=== PATIENT | male | born 1965 | race Caucasian/White ===

== ENCOUNTER → 2016-07-18 | Outpatient (CLI) | payer BC, OTHER ==
[~2016-07-18] MED LIST: ENOX100I SQ; LAMO200T38 PO; TOPI200T14 PO; Warfarin PO
[2016-07-18 18:58] LABS: LYME DISEASE AB IGM NEG (NEG)
[2016-07-18 19:01] LABS: LYME DISEASE AB IGG NEG (NEG)
== END | disposition home or self-care (01) ==
LOC: C.LAB1850 11:26
PROVIDERS: ATTEND Family Medicine
DX: Z20.818 Contact with and (suspected) exposure to other bacterial communicable diseases (principal); W57.XXXA Bitten or stung by nonvenomous insect and other nonvenomous arthropods, initial encounter

== ENCOUNTER → 2016-11-26 | Outpatient (CLI) | payer BC, OTHER ==
[2016-11-26 12:11] LABS: INR 3.3 (0.9-1.1); PROTHROMBIN TIME (PATIENT) 37.6 SECONDS (9.0-12.0)
== END | disposition home or self-care (01) ==
LOC: C.LABPBG 08:58
PROVIDERS: ATTEND Family Medicine
DX: D68.51 Activated protein C resistance (principal)

== ENCOUNTER → 2017-02-25 | Outpatient (CLI) | payer BC, OTHER ==
[2017-02-25 11:56] LABS: BASO % 0.2 %; BASO ABS # 0.01 K/uL (0-0.2); COMPLETE YES; EOS % 1.3 %; HEMATOCRIT 46.2 % (42-52); IG% 0.2 %; LYMPH % 34.4 %; LYMPH ABS # 1.56 K/uL (1.2-3.4); MEAN CORPUSCULAR HEMOGLOBIN 31.4 pg (25-34); MEAN CORPUSCULAR HGB CONC 32.7 g/dl (32-36); MEAN PLATELET VOLUME 11.2 fL (7.4-10.4); MONO % 11.5 %; NEUT % 52.4 %; PLATELET COUNT 132 K/uL (130-400); RED BLOOD COUNT 4.81 M/uL (4.7-6.1); WHITE BLOOD COUNT 4.53 K/uL (4.8-10.8)
[2017-02-25 12:06] LABS: INR 3.2 (0.9-1.1); PROTHROMBIN TIME (PATIENT) 35.5 SECONDS (9.0-12.0)
[2017-02-25 13:03] LABS: ALKALINE PHOSPHATASE 72 U/L (45-117); ALT/SGPT 33 U/L (12-78); AST/SGOT 19 U/L (15-37); BLOOD UREA NITROGEN 21 mg/dl (7-18); BUN/CREATININE RATIO 14.2 (10-20); CALCIUM 8.8 mg/dl (8.5-10.1); CARBON DIOXIDE 25 mmol/L (21-32); CHLORIDE 109 mmol/L (98-107); GLUCOSE 102 mg/dl (70-99); HDL CHOLESTEROL 56 mg/dl; POTASSIUM 4.4 mmol/L (3.5-5.1); SODIUM 140 mmol/L (136-145)
[2017-02-25 13:11] LABS: CHOLESTEROL 202 mg/dl (0-200); CHOLESTEROL/HDL RATIO 3.6; LDL CHOLESTEROL CALCULATED 111 mg/dl; TRIGLYCERIDES 174 mg/dl (0-150); VERY LOW DENSITY LIPOPROT CALC 35 mg/dl
== END | disposition home or self-care (01) ==
LOC: C.LABPBG 09:10
PROVIDERS: ATTEND Family Medicine
DX: Z00.00 Encounter for general adult medical examination without abnormal findings (principal); D68.51 Activated protein C resistance

== ENCOUNTER 2017-04-17 00:42 | Emergency (ER) | payer OTHER ==
[~2017-04-17] VITALS: Ht 188 cm; Wt 99.7 kg
[~2017-04-17 00:42] MED LIST changes: +LAMO200T35 PO; -LAMO200T38 PO
[2017-04-17 01:10] VITALS: TEMP 36.3; Ht 188 cm; Wt 99.7 kg
[2017-04-17] MEDS ORDERED: SODIUM CHLORIDE 0.9% 1000ML 1,000 ML IV STA (01:28)
[2017-04-17] MEDS ORDERED: ONDANSETRON INJ 2 MG/ML 2 ML VIAL IV STA ×2 (01:28→02:49)
[2017-04-17] MEDS ORDERED: MoRPHine SULFATE 4 MG/ML 1 ML CARP\\VIAL IV STA (01:28)
[2017-04-17 01:44] LABS: EOS % 0.2 %; EOS ABS # 0.01 K/uL (0-0.5); HEMATOCRIT 44.3 % (42-52); IG# 0.02 K/uL (0.00-0.02); LYMPH % 10.7 %; MEAN CELL VOLUME 93.9 fL (80-100); MEAN CORPUSCULAR HEMOGLOBIN 31.8 pg (25-34); MEAN CORPUSCULAR HGB CONC 33.9 g/dl (32-36); MEAN PLATELET VOLUME 10.5 fL (7.4-10.4); MONO % 5.8 %; MONO ABS # 0.38 K/uL (0.11-0.59); NEUT ABS # 5.41 K/uL (1.4-6.5); PLATELET COUNT 109 K/uL (130-400); RED CELL DISTRIBUTION WIDTH CV 13.5 % (11.5-14.5); RED CELL DISTRIBUTION WIDTH SD 46.8 fL (36.4-46.3); WHITE BLOOD COUNT 6.52 K/uL (4.8-10.8)
[2017-04-17 02:06] LABS: ALT/SGPT 40 U/L (12-78); AST/SGOT 23 U/L (15-37); BLOOD UREA NITROGEN 24 mg/dl (7-18); CALCIUM 9.1 mg/dl (8.5-10.1); CARBON DIOXIDE 26 mmol/L (21-32); GLUCOSE 137 mg/dl (70-99); LIPASE 210 U/L (73-393); POTASSIUM 4.1 mmol/L (3.5-5.1); SODIUM 140 mmol/L (136-145)
[2017-04-17 02:08] LABS: ALKALINE PHOSPHATASE 75 U/L (45-117); TOTAL PROTEIN 7.6 gm/dl (6.4-8.2)
[2017-04-17] MEDS ORDERED: OPTIRAY 320 IV PRN (02:30)
[2017-04-17] MEDS ORDERED: WARF10TA PO (02:45)
[2017-04-17] MEDS ORDERED: HYDROmorphone INJ 1 MG/ML SYR IV STA ×2 (02:49→03:57)
[2017-04-17] MEDS ORDERED: OXYCODONE IR HOME PACK PO ONE (03:30)
[2017-04-17] MEDS ORDERED: ONDANSETRON HOME PACK 4MG OD TAB PO ONE (03:30)
[2017-04-17 05:04] LABS: INR 2.6 (0.9-1.1); PTT PATIENT 42.9 SECONDS (21.0-31.0)
[2017-04-17 05:42] VITALS: BP 158/97; PULSE 69; O2SAT 100
--- NOTE | 2017-04-17 05:46 | EMERGENCY ROOM VISIT NOTE ---
History First contact with patient: 01:15 Chief Complaint: ABDOMINAL PAIN Stated Complaint: LOWER RT QUADRENT ACUTE PAIN Nursing Triage Summary: RLQ abd pain since yesterday morning. Increased pain tonight. +N/V. Pt factor 5 History of Present Illness The patient is a 51 year old male who presents to the Emergency Room with complaints of right lower quadrant pain is steadily getting worse over the past day described as aching, ranging in severity 8 out of 10 with nausea and vomiting. Nothing makes it better or worse. It does radiate to his groin. No history of similar symptoms in the past. Patient denies chest pain, dyspnea, fever, chills, back pain, penile pain, testicular pain. Review of Systems See HPI for pertinent positives & negatives. A total of 10 systems reviewed and were otherwise negative. Past Medical/Surgical History Seizures, factor V, DVT, CVA Social History Smoking Status: Never Smoker Smokeless Tobacco Use: No Drug Use: none Marital Status: Housing Status: lives with family Current/Historical Medications Scheduled Lamotrigine (Lamictal), 200 MG PO TID Topiramate (Topamax), 200 MG PO TID Warfarin Sodium (Coumadin), 15 MG PO DAILY Physical Exam Vital Signs Date Time Temp Pulse Resp B/P (MAP) Pulse Ox O2 Delivery O2 Flow Rate FiO2 04/17/17 05:42 69 18 158/97 100 Room Air 04/17/17 03:42 82 16 138/99 98 Room Air 04/17/17 02:45 93 18 156/95 100 Room Air 04/17/17 02:00 68 04/17/17 01:49 Room Air 04/17/17 01:10 36.3 70 20 140/89 92 Room Air Physical Exam VITALS: Vitals are noted on the nurse's note and reviewed by myself. Vital signs stable. GENERAL: Pleasant male who appears in pain, in no acute distress, nondiaphoretic , well-developed well-nourished. SKIN: Capillary reflex less than 2 seconds. HEENT: Normocephalic. PERRLA. EOMI. Nares patent. Mucous membranes moist. Neck is supple without nuchal rigidity. HEART: Regular rate and rhythm without murmurs gallops or rubs. LUNGS: Clear to auscultation bilaterally without wheezes, rales or rhonchi. No retractions or accessory muscle use. ABDOMEN: Positive bowel sounds x 4. Normal tympanic percussion. Soft, tenderness to palpation right lower quadrant, no CVA tenderness, without masses or organomegaly. Ward sign negative. No guarding or rebound tenderness. MUSCULOSKELETAL: No gross musculoskeletal defects. No calf tenderness. NEURO: Patient was alert and oriented to person place and time. Normal sensation to light and sharp touch. No focal neurological deficits. Medical Decision & Procedures Laboratory Results 04/17/17 01:35 Red Blood Count 4.72, Mean Corpuscular Volume 93.9, Mean Corpuscular Hemoglobin 31.8, Mean Corpuscular Hemoglobin Concent 33.9, Mean Platelet Volume 10.5, Neutrophils (%) (Auto) 83.0, Lymphocytes (%) (Auto) 10.7, Monocytes (%) (Auto) 5.8, Eosinophils (%) (Auto) 0.2, Basophils (%) (Auto) 0.0, Neutrophils # (Auto) 5.41, Lymphocytes # (Auto) 0.70, Monocytes # (Auto) 0.38, Eosinophils # (Auto) 0.01, Basophils # (Auto) 0.00 04/17/17 01:35 Test 04/17/17 01:35 04/17/17 01:59 04/17/17 04:30 White Blood Count 6.52 K/uL (4.8-10.8) Red Blood Count 4.72 M/uL (4.7-6.1) Hemoglobin 15.0 g/dL (14.0-18.0) Hematocrit 44.3 % (42-52) Mean Corpuscular Volume 93.9 fL (80-100) Mean Corpuscular Hemoglobin 31.8 pg (25-34) Mean Corpuscular Hemoglobin Concent 33.9 g/dl (32-36) Platelet Count 109 K/uL (130-400) Mean Platelet Volume 10.5 fL (7.4-10.4) Neutrophils (%) (Auto) 83.0 % Lymphocytes (%) (Auto) 10.7 % Monocytes (%) (Auto) 5.8 % Eosinophils (%) (Auto) 0.2 % Basophils (%) (Auto) 0.0 % Neutrophils # (Auto) 5.41 K/uL (1.4-6.5) Lymphocytes # (Auto) 0.70 K/uL (1.2-3.4) Monocytes # (Auto) 0.38 K/uL (0.11-0.59) Eosinophils # (Auto) 0.01 K/uL (0-0.5) Basophils # (Auto) 0.00 K/uL (0-0.2) RDW Standard Deviation 46.8 fL (36.4-46.3) RDW Coefficient of Variation 13.5 % (11.5-14.5) Immature Granulocyte % (Auto) 0.3 % Immature Granulocyte # (Auto) 0.02 K/uL (0.00-0.02) Prothrombin Time 27.2 SECONDS (9.0-12.0) Prothromb Time International Ratio 2.6 (0.9-1.1) Activated Partial Thromboplast Time 42.9 SECONDS (21.0-31.0) Partial Thromboplastin Ratio 1.7 Anion Gap 4.0 mmol/L (3-11) Est Creatinine Clear Calc Drug Dose 80.5 ml/min Estimated GFR () 67.9 Estimated GFR (Non- 58.6 BUN/Creatinine Ratio 17.3 (10-20) Calcium Level 9.1 mg/dl (8.5-10.1) Total Bilirubin 0.3 mg/dl (0.2-1) Direct Bilirubin < 0.1 mg/dl (0-0.2) Aspartate Amino Transf (AST/SGOT) 23 U/L (15-37) Alanine Aminotransferase (ALT/SGPT) 40 U/L (12-78) Alkaline Phosphatase 75 U/L (45-117) Total Protein 7.6 gm/dl (6.4-8.2) Albumin 4.0 gm/dl (3.4-5.0) Lipase 210 U/L (73-393) Bedside Lactic Acid Venous 0.95 mmol/L (0.90-1.70) Urine Color YELLOW Urine Appearance TURBID (CLEAR) Urine pH 8.5 (4.5-7.5) Urine Specific [place] > 1.045 (1.000-1.030) Urine Protein NEG (NEG) Urine Glucose (UA) NEG (NEG) Urine Ketones TRACE (NEG) Urine Occult Blood 3+ (NEG) Urine Nitrite NEG (NEG) Urine Bilirubin NEG (NEG) Urine Urobilinogen NEG (NEG) Urine Leukocyte Esterase NEG (NEG) Urine WBC (Auto) 1-5 /hpf (0-5) Urine RBC (Auto) 5-10 /hpf (0-4) Urine Hyaline Casts (Auto) 1-5 /lpf (0-5) Urine Epithelial Cells (Auto) 20-30 /lpf (0-5) Urine Bacteria (Auto) NEG (NEG) Urine Yeast (Auto) . (NONE PRSENT) Medications Administered Medications (Trade) Dose Ordered Sig/Thomas Route Start Time Stop Time Status Last Admin Dose Admin Morphine Sulfate (MoRPHine SULFATE INJ) 4 mg NOW STAT IV 04/17/17 01:28 04/17/17 01:30 DC 04/17/17 01:43 4 MG Ondansetron HCl (Zofran Inj) 4 mg NOW STAT IV 04/17/17 01:28 04/17/17 01:30 DC 04/17/17 01:42 4 MG Sodium Chloride 1,000 ml @ 999 mls/hr Q1H1M STAT IV 04/17/17 01:28 04/17/17 02:28 DC 04/17/17 01:47 999 MLS/HR Hydromorphone HCl (Dilaudid Inj) 1 mg NOW STAT IV 04/17/17 02:49 04/17/17 02:50 DC 04/17/17 03:11 1 MG Ondansetron HCl (Zofran Inj) 4 mg NOW STAT IV 04/17/17 02:49 04/17/17 02:50 DC 04/17/17 03:11 4 MG ED Course Prior records/ancillary studies reviewed. Triage Nursing notes reviewed. Additional history obtained from the family. The patient's history was concerning for right lower quadrant pain. Differential diagnosis: Etiologies such as renal colic, appendicitis, diverticulitis, mesenteric ischemia, aortic pathology, infections, inflammatory bowel disease, PUD, biliary pathology, UTI, as well as others were entertained. Physical examination findings: As above. ER treatment provided: Morphine, Dilaudid, Zofran On reassessment the patient felt better. Diagnostic interpretation by me: The labs revealed hyperglycemia without DKA. Urinalysis revealed hematuria. There was no sign of UTI. Imaging studies: CT of the abdomen and pelvis as above. Scan is concerning for right ureteral with hydronephrosis stone per radiology It appears that the patient has isolated renal colic from a right sided stone. The patient's pain was under control. He was advised to strain his urine and take medications as directed. Patient no signs of UTI. He is well-appearing. He was advised follow-up urology in a few days or here in the ER sooner for severe pain, fevers, vomiting , worsening signs or symptoms or as needed.By the evaluation outlined above emergent etiologies such as appendicitis, diverticulitis, mesenteric ischemia, aortic pathology, infections, inflammatory bowel disease, PUD, biliary pathology , UTI, as well as others were deemed relatively unlikely. The pt informed about the findings as listed above. All questions were answered and pleased with the treatment. Return instructions were outlined and the patient was discharged in stable condition. Outpatient prescription management: Oxy IR 5mg 1-2 po Q4 hrs prn zofran Referral: The pt was referred to [facility] for follow up care regarding their stone. or The patient was referred back to their primary care physician for follow-up in 2 to 3 days for a recheck of the current condition. case reviewed by my Attending Medical Decision As above [place] Drug Monitoring Program Search Results: patient reviewed within database, no issues identified Medication Reconcilliation Current Medication List: was personally reviewed by me Blood Pressure Screening Patient's blood pressure: Normal blood pressure Impression Primary Impression: Renal colic on right side Additional Impression: Nephrolithiasis Departure Information Dispostion Home / Self-Care Condition GOOD Referrals Divya Gilbert DO (PCP) Patient Instructions My [facility] Additional Instructions DO NOT drive, drink alcohol, operate machinery, or perform dangerous activities today. You were given medications in the ER that can affect your ability to safely function or operate a vehicle. Oxycodone Immediate Release (OxyIR) 5mg: Take 1-2 pills every four hours for pain. Avoid alcohol, operating machinery or dangerous equipment, working on ladders or roofs, DRIVING, or situations where being under the influence may be dangerous. It is recommended to use an jzij-meo-vucusst stool softener such as Colace, 100mg twice daily while taking this medication to avoid constipation. Zofran 4 mg: Take one every six hours as needed for nausea. Avoid alcohol, operating machinery or dangerous equipment, working on ladders or roofs, DRIVING , or situations where being under the influence may be dangerous. Acetaminophen(Tylenol) may be used for fever or pain. Use 1000mg every six hours as needed. Avoid using more than 3000mg in a 24 hour period. This medication can be taken if you need to drive, work, or perform activities which may be dangerous when taking narcotic pain medication. Strain your urine and collect all the stones or debris for the urologists. Rest and avoid strenuous activity until your stone passes and symptoms resolve. Drink plenty of fluids. Continue current medications. Return to the ER for worsening abdominal or back pain, vomiting, fevers, passing out, or as needed. Follow up with urology in 2-3 days, call for an appointment. Problem Qualifiers
[2017-04-17] MEDS ORDERED: OXYC1TAB3 PO (05:50)
--- NOTE | 2017-04-17 07:38 | EMERGENCY ROOM VISIT NOTE ---
ED Visit Note First contact with patient: 01:15 I have personally evaluated and examined this patient. I agree with assessment and plan of Rachael Rothman PA-C.
--- NOTE | 2017-04-17 07:52 | DIAGNOSTIC IMAGING REPORT ---
CT SCAN OF THE ABDOMEN AND PELVIS WITH IV CONTRAST CLINICAL HISTORY: Right lower quadrant abdominal pain. COMPARISON STUDY: Abdominal ultrasound dated 10/21/2009. TECHNIQUE: Following the IV administration of 118 cc of Optiray 320, CT scan of the abdomen and pelvis is performed from the lung bases to the proximal femora. Images are reviewed in the axial, sagittal, and coronal planes. IV contrast was administered without complication. A dose lowering technique was utilized adhering to the principles of ALARA. CT DOSE: 576.34 mGy.cm FINDINGS: Lung bases: The heart is normal in size and without pericardial effusion. The lung bases are clear noting dependent atelectasis. There is a tiny hiatal hernia. Liver: The contrast-enhanced liver is normal in size, contour, and attenuation. There is no intrahepatic biliary ductal dilatation. The hepatic veins and portal veins are patent. A 1.4 cm cyst is noted in the left lobe. Gallbladder: Unremarkable. Spleen: Normal in size and attenuation. Pancreas: Moderately atrophic and grossly unremarkable. Adrenal glands: Unremarkable. Kidneys: The contrast enhanced kidneys are normal in size. There is a 4 mm obstructing calculus at the right vesicoureteral junction seen on image #410. This causes mild right hydroureteronephrosis. There is associated right-sided perinephric stranding and trace fluid. No additional renal calculi are clearly identified on this unenhanced examination. The right kidney enhances heterogeneously. Left renal cysts measure up to 2.3 cm. Additional subcentimeter cortical hypodensities in the left kidney also likely represent cysts but are too small for definitive characterization. Abdominal vasculature: The abdominal aorta is normal in course and caliber. Bowel: There is mild colonic fecal retention. No bowel obstruction is seen. The appendix is well-visualized and normal. Peritoneum: There is no intraperitoneal free air or abdominal ascites. There is a small fat-containing umbilical hernia. Lymphadenopathy: None. Pelvic viscera: The bladder, prostate, and seminal vesicles are normal as visualized. Skeletal structures: No lytic or blastic lesions are seen. IMPRESSION: 1. There is a 4 mm obstructing calculus at the right vesicoureteral junction. This causes mild right hydroureteronephrosis. 2. There is heterogeneous enhancement of the right kidney, likely related to obstruction/hydronephrosis. Correlate clinically and urinalysis for evidence of superimposed infection. 3. Additional findings as above. Electronically signed by: Melvin Gan M.D. 04/17/2017 7:50 AM Dictated Date/Time: 04/17/2017 7:44 AM
== END 2017-04-17 06:06 | disposition home or self-care (01) ==
LOC: C.EDB 00:53
DX: N23 Unspecified renal colic (principal); N20.0 Calculus of kidney; R56.9 Unspecified convulsions; I63.9 Cerebral infarction, unspecified

== ENCOUNTER 2017-05-23 03:30 | Emergency (ER) | payer OTHER ==
[~2017-05-23] VITALS: Ht 188 cm; Wt 98.0 kg
[~2017-05-23 03:30] MED LIST changes: -ENOX100I SQ; +OXYC1TAB3 PO; +WARF10TA PO; -Warfarin PO
[2017-05-23 03:36] VITALS: TEMP 37; Ht 188 cm; Wt 98.0 kg
[2017-05-23] MEDS ORDERED: HYDROmorphone INJ 2 MG/ML SYR/VIAL IV STA (04:00)
--- NOTE | 2017-05-23 04:01 | EMERGENCY ROOM VISIT NOTE ---
History Report prepared by Jackson: Dontrell Mendoza Under the Supervision of: Dr. Alicja Najera D.O. First contact with patient: 03:43 Chief Complaint: LEG PAIN,LEG INJURY Stated Complaint: POSSIBLE BLOOD CLOTT IN R LEG, FOOT APPEARS BLUE History of Present Illness The patient is a 51 year old male who presents to the Emergency Room with complaints of worsening right thigh pain that began 6 days ago. Patient states that the pain radiates to his groin. Patient states that he has been taking 2 Percocet every 2 hours for the pain. Patient is present with his . states that that patient was seen 3 days due to leg swelling and discoloration. Patient states he was told he had a ruptured quadricep. Patient states that he received an MRI through [facility] showing that he had a hematoma. Patient denies injuring the area. Pertinent past medical history includes a left leg DVT and torn tendon in his right ankle. Patient denies scrotum pain and abdominal pain. Patient denies using antibiotics recently. He adds that he is supposed to see orthopedics in 2 days. states that the patient has been on Coumadin for the last 20 years. She states his baseline range level is 3.5-4. Source of History: patient Onset: 6 days ago Position: leg (right) Timing: worsening Associated Symptoms: No abdominal pain Note: Patient has leg swelling and discoloration. Patient denies scrotum pain. Review of Systems See HPI for pertinent positives & negatives. A total of 10 systems reviewed and were otherwise negative. Past Medical & Surgical Medical Problems: (1) DVT (deep venous thrombosis) Family History No pertinent family history. Social History Smoking Status: Never Smoker Drug Use: none Marital Status: Housing Status: lives with family Current/Historical Medications Scheduled Lamotrigine (Lamictal), 200 MG PO TID Topiramate (Topamax), 200 MG PO TID Warfarin Sodium (Coumadin), 15 MG PO DAILY Scheduled PRN Oxycodone Immediate Rel Tab (Roxicodone Ir), 1-2 TAB PO Q4H PRN for Severe Pain Oxycodone/Acetaminophen 5MG/325MG (Percocet 5MG/325MG), 2 TABLETS PO Q4H PRN for Pain Allergies Coded Allergies: Penicillins (Verified Allergy, Severe, 04/17/17) HIVES Sulfa Antibiotics (Verified Allergy, Unknown, ., 04/17/17) Physical Exam Vital Signs Date Time Temp Pulse Resp B/P (MAP) Pulse Ox O2 Delivery O2 Flow Rate FiO2 05/23/17 07:19 71 18 129/77 100 Room Air 05/23/17 05:58 67 18 121/82 97 Room Air 05/23/17 03:36 37.0 91 18 116/78 100 Room Air Physical Exam HEENT: Head - normocephalic and atraumatic Pupils are equal, round, and reactive to light. Extraocular eye muscles are intact, and sclera are anicteric. Nose - moist nasal mucosa without discharge. Mouth - moist buccal mucosa. Oropharynx is nonerythematous and there is no tonsillar exudate or edema noted. Neck: Supple; no JVD, nuchal rigidity, cervical lymphadenopathy. Heart: Regular rate and rhythm. There is a normal S1 and S2 with no murmurs, clicks, or gallops appreciated. Lungs: Clear to auscultation bilaterally with no wheezes, rales, or rhonchi. Abdomen: Soft, completely nontender, nondistended, with good bowel sounds. There are no palpable pulsatile masses or hepatosplenomegaly. There is no guarding, rigidity, or rebound noted. Extremities: No evidence of cyanosis or clubbing. Large hematoma over lateral aspect of right thigh that tracts down into the popliteal fossa. There are easily palpable peripheral pulses. Skin: warm and dry with good turgor and no rashes. Medical Decision & Procedures ER Provider Diagnostic Interpretation: Radiology results as stated below per my review and the radiologist's interpretation: RIGHT LOWER EXTREMITY ARTERIAL DOPPLER STUDY CLINICAL HISTORY: eval for clot in lower right leg. Right leg pain. COMPARISON STUDY: None. FINDINGS: Normal triphasic waveforms and velocities throughout the right lower extremity arterial system. No evidence for arterial occlusion. The right ankle brachial indices measure 1.2. IMPRESSION: No significant stenosis or occlusion within the right lower extremity arterial system. Electronically signed by: Jas Boyer M.D. 05/23/2017 6:43 AM RIGHT LOWER EXTREMITY VENOUS DOPPLER HISTORY: Right leg pain. eval for dvt in right calf COMPARISON STUDY: None. FINDINGS: There is normal compressibility, flow, and augmentation within the right lower extremity deep venous system. IMPRESSION: No DVT within the right lower extremity Electronically signed by: Jas Boyer M.D. 05/23/2017 6:41 AM Laboratory Results 05/23/17 04:10 Test 05/23/17 04:10 Red Blood Count 3.96 M/uL (4.7-6.1) Mean Corpuscular Volume 93.7 fL (80-100) Mean Corpuscular Hemoglobin 31.6 pg (25-34) Mean Corpuscular Hemoglobin Concent 33.7 g/dl (32-36) RDW Standard Deviation 46.8 fL (36.4-46.3) RDW Coefficient of Variation 13.8 % (11.5-14.5) Mean Platelet Volume 9.6 fL (7.4-10.4) Prothrombin Time 52.3 SECONDS (9.0-12.0) Prothromb Time International Ratio 5.1 (0.9-1.1) Laboratory results per my review. Medications Administered Medications (Trade) Dose Ordered Sig/Thomas Route Start Time Stop Time Status Last Admin Dose Admin Hydromorphone HCl (Dilaudid Inj) 2 mg NOW STAT IV 05/23/17 04:00 05/23/17 04:03 DC 05/23/17 04:16 2 MG Hydromorphone HCl (Dilaudid Inj) 1 mg NOW STAT IV 05/23/17 06:00 05/23/17 06:01 DC 05/23/17 06:07 1 MG Procedure Dilaudid Inj 2mg IV and Dilaudid Inj 1mg IV. ED Course 0350: Past medical records reviewed. The patient was evaluated in room B9. A complete history and physical exam was performed. IV lock was established and labs were drawn as above. 0400: Dilaudid Inj 2mg IV. The patient went for duplex of the right lower extremity to rule out DVT or arterial occlusion. 0600: Upon returning from radiology, the patient had recurrent pain and was given Dilaudid Inj 1mg IV 0715: Upon reevaluation, the patient is resting comfortably. I discussed findings and results with him. I discussed the case with Dr. Baird who explained that the decision to be admitted for pain management or to go home and follow-up with his appointment on Thursday was up to the patient. He verbalized agreement of the treatment plan. He was discharged home. Medical Decision The patient is a 51 year old male who presents to the ED with thigh pain. Differential diagnosis includes compartment syndrome, DVT, and obstructive arterial blood flow secondary to hematoma. Lab results show INR = 5.1 and hemoglobin = 12.5. This is a 51-year-old with right thigh pain. The patient has a large hematoma to the right thigh from a ruptured quadriceps tendon. The patient has had increased pain in the right thigh despite taking Percocet and noticed that the right foot was cold. The family was concerned that the right lower extremity was not getting good blood flow. Ultrasounds were negative. The patient's INR is elevated at 5.1. He will skip his Coumadin dose today. Eventually, the patient will need to be transitioned to Lovenox and heparin in preparation for surgery. The patient has an appointment scheduled on Thursday. He will keep that appointment and use the additional Percocet for pain management. Medication Reconcilliation Current Medication List: was personally reviewed by me Blood Pressure Screening Patient's blood pressure: Normal blood pressure Blood pressure disposition: Did not require urgent referral Consults Time Called: [phone] Consulting Physician: Dr. Baird - [facility] Returned Call: [phone] Discussed the patient's case. Dr. Baird states that the patient can stay for pain management or leave and follow up at his appointment on Thursday. Impression Primary Impression: Hematoma of right thigh Scribe Attestation The scribe's documentation has been prepared under my direction and personally reviewed by me in its entirety. I confirm that the note above accurately reflects all work, treatment, procedures, and medical decision making performed by me. Departure Information Dispostion Home / Self-Care Prescriptions Oxycodone/Acetaminophen 5MG/325MG (PERCOCET 5MG/325MG) Tab 2 TABLETS PO Q4H Y for Pain, #20 TAB PAIN Prov: Alicja Najera D.O. 05/23/17 Referrals Divya Gilbert DO (PCP) Forms HOME CARE DOCUMENTATION FORM, IMPORTANT VISIT INFORMATION Patient Instructions My [facility] Additional Instructions Follow up with Ortho on Thursday Use percocet - 2 tabs. every 4 hours for pain. Return to the ED if you can't feel a pulse in the foot. No coumadin today Problem Qualifiers Primary Impression: Hematoma of right thigh Encounter type: initial encounter Qualified Codes: S70.11XA - Contusion of right thigh, initial encounter
[2017-05-23 04:23] LABS: HEMATOCRIT 37.1 % (42-52); HEMOGLOBIN 12.5 g/dL (14.0-18.0); MEAN CELL VOLUME 93.7 fL (80-100); MEAN CORPUSCULAR HEMOGLOBIN 31.6 pg (25-34); MEAN CORPUSCULAR HGB CONC 33.7 g/dl (32-36); MEAN PLATELET VOLUME 9.6 fL (7.4-10.4); PLATELET COUNT 141 K/uL (130-400); RED CELL DISTRIBUTION WIDTH CV 13.8 % (11.5-14.5); RED CELL DISTRIBUTION WIDTH SD 46.8 fL (36.4-46.3); WHITE BLOOD COUNT 5.48 K/uL (4.8-10.8)
[2017-05-23 04:39] LABS: INR 5.1 (0.9-1.1)
[2017-05-23] MEDS ORDERED: HYDROmorphone INJ 1 MG/ML SYR IV STA (06:00)
--- NOTE | 2017-05-23 06:43 | DIAGNOSTIC IMAGING REPORT ---
RIGHT LOWER EXTREMITY VENOUS DOPPLER HISTORY: Right leg pain. eval for dvt in right calf COMPARISON STUDY: None. FINDINGS: There is normal compressibility, flow, and augmentation within the right lower extremity deep venous system. IMPRESSION: No DVT within the right lower extremity Electronically signed by: Jas Boyer M.D. 05/23/2017 6:41 AM Dictated Date/Time: 05/23/2017 6:41 AM
--- NOTE | 2017-05-23 06:44 | DIAGNOSTIC IMAGING REPORT ---
RIGHT LOWER EXTREMITY ARTERIAL DOPPLER STUDY CLINICAL HISTORY: eval for clot in lower right leg. Right leg pain. COMPARISON STUDY: None. FINDINGS: Normal triphasic waveforms and velocities throughout the right lower extremity arterial system. No evidence for arterial occlusion. The right ankle brachial indices measure 1.2. IMPRESSION: No significant stenosis or occlusion within the right lower extremity arterial system. Electronically signed by: Jas Boyer M.D. 05/23/2017 6:43 AM Dictated Date/Time: 05/23/2017 6:42 AM
[2017-05-23 07:19] VITALS: BP 129/77; PULSE 71; O2SAT 100
[2017-05-23] MEDS ORDERED: OXYC-57 PO (07:22)
== END 2017-05-23 07:49 | disposition home or self-care (01) ==
LOC: C.EDB 03:32
DX: S70.11XA Contusion of right thigh, initial encounter (principal); X58.XXXA Exposure to other specified factors, initial encounter; Z86.718 Personal history of other venous thrombosis and embolism; Z79.01 Long term (current) use of anticoagulants; Z88.0 Allergy status to penicillin; Z88.1 Allergy status to other antibiotic agents

== ENCOUNTER 2017-05-25 15:57 | Inpatient (IN) | payer OTHER ==
[~2017-05-25] VITALS: Ht 188 cm; Wt 100.5 kg
[~2017-05-25 15:57] MED LIST changes: -ACET-24 PO; -LVNIS100 SQ
[2017-05-25 18:00] VITALS: BP 115/76; PULSE 98; TEMP 36.7; O2SAT 93
[2017-05-25 18:10] VITALS: BP 115/76; PULSE 98; TEMP 36.7; Ht 188 cm; Wt 100.5 kg
[2017-05-25] MEDS ORDERED: OXYCODONE HCL IR 5 MG TAB (IMMEDIATE RELEASE) PO PRN (20:00)
[2017-05-25] MEDS ORDERED: MoRPHine SULFATE 2 MG/ML CARP IV PRN (20:00)
--- NOTE | 2017-05-25 20:20 | Medical Consult ---
Consultation Date of Consultation: May 25, 2017. Attending Physician: Dontrell De La Rosa D.O. Reason for Consultation: Coumadin management History of Present Illness 51 y/o M who was sent to [facility] by ortho for R thigh hematoma. Pt has been having R lateral thigh pain for over a week. He was seen in the ED on 05/23/17 and was found to have a R LE US neg for DVT. He was noted to have a R lateral thigh hematoma and an INR of 5.1. He was told to hold his coumadin on 05/24/17 and to take a lower dose of 12mg today. His usual coumadin dose is 15mg daily. He was seen by ortho today. An US shows a large R thigh hematoma that ortho is planning to evacuate on 05/27 after pt's INR is lower. Pt denies any trauma or recent falls. Per pt, his INR goal is 3.5-4 "because I clot easy". He states that he has had clots in the usual therapeutic range of 2-3. He has a LLE DVT at present that is chronic. Pt has pain and swelling related to the R lateral thigh hematoma, but otherwise feels at his usual. Pt denies fever, SOB, chest pain, abd pain, n/v/c/d. 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 He has not had a seizure since that time. Past Medical/Surgical History Medical Problems: (1) Hematoma of right thigh Status: Acute (2) Nephrolithiasis Status: Acute (3) Renal colic on right side Status: Acute L LE DVT CVA Seizures, none x20 years Factor V Social History Smoking Status: Never Smoker Alcohol Use: none Drug Use: none Marital Status: Housing Status: lives with family Allergies Coded Allergies: Penicillins (Verified Allergy, Severe, 04/17/17) HIVES Sulfa Antibiotics (Verified Allergy, Unknown, ., 04/17/17) Current Inpatient Medications Current Inpatient Medications Medications (Trade) Dose Ordered Sig/Thomas Route Start Time Stop Time Status Last Admin Dose Admin Lamotrigine (Lamictal Tab) 200 mg TID PO 05/25/17 21:00 06/24/17 20:59 UNV Oxycodone HCl (Roxicodone Immediate Rel Tab) 5 mg Q4H PRN PO 05/25/17 20:00 06/08/17 19:59 UNV Oxycodone/ Acetaminophen (Percocet 5-325mg Tab) 1 tab Q4H PRN PO 05/25/17 20:00 06/08/17 19:59 UNV Topiramate (Topamax Tab) 200 mg TID PO 05/25/17 21:00 06/24/17 20:59 UNV Morphine Sulfate (MoRPHine SULFATE INJ) 1 mg Q6H PRN IV 05/25/17 20:00 06/08/17 19:59 UNV Review of Systems Pertinent positives and negatives reviewed in HPI--all others negative Physical Exam Date Time Temp Pulse Resp B/P (MAP) Pulse Ox O2 Delivery O2 Flow Rate FiO2 05/25/17 18:00 36.7 98 18 115/76 (89) 93 Room Air General Appearance: WD/WN, no apparent distress Head: normocephalic, atraumatic Eyes: EOMI, sclerae normal Respiratory/Chest: normal breath sounds, no respiratory distress Cardiovascular: regular rate, rhythm, normal peripheral pulses Abdomen/GI: non tender, soft Extremities/Musculoskelatal: + swelling (R thigh), + pertinent finding (R thigh is TTP) Neurologic/Psych: alert, normal mood/affect, oriented x 3 Skin: warm/dry, + pertinent finding (Marked bruising along R lateral thigh, chronic skin changes along b/l lower extremities) Laboratory Results Last 24 Hours Test 05/25/17 19:54 Assessment & Plan 51 y/o M who was admitted on 05/25 as a direct admission from the office by Dr. De La Rosa for R lateral thigh hematoma. R lateral thigh hematoma: planning for OR on 05/27 As per ortho Factor V, L LE DVT: pt's INR goal is 3.5-4 for hx of recurrent DVTs at usual therapeutic range Pt generally takes 15mg daily, but this was held on 05/24 and decreased to 12mg today after INR noted to be 5.1 INR pending Will need to start a heparin bridge, however will not start this until INR is returned and noted to be closer to pt's usual range of 3.5-4 given hematoma Seizures: single seizure noted s/p CVA 20 yrs ago Monitor on home meds
[2017-05-25 20:21] LABS: HEMATOCRIT 33.9 % (42-52); HEMOGLOBIN 11.3 g/dL (14.0-18.0); MEAN CORPUSCULAR HEMOGLOBIN 31.7 pg (25-34); MEAN CORPUSCULAR HGB CONC 33.3 g/dl (32-36); MEAN PLATELET VOLUME 9.2 fL (7.4-10.4); PLATELET COUNT 142 K/uL (130-400); RED CELL DISTRIBUTION WIDTH CV 14.1 % (11.5-14.5); RED CELL DISTRIBUTION WIDTH SD 48.7 fL (36.4-46.3)
[2017-05-25 20:29] LABS: INR 2.1 (0.9-1.1)
[2017-05-25 20:39] LABS: CALCIUM 8.6 mg/dl (8.5-10.1); CREATININE 1.09 mg/dl (0.60-1.40); POTASSIUM 4.2 mmol/L (3.5-5.1)
[2017-05-25] MEDS: TOPIRAMATE 100 MG TAB PO SCH (21:11)
[2017-05-25] MEDS: OXYCODONE/ACETAMINOPHEN 5-325 TAB PO PRN (21:14)
[2017-05-25] MEDS ORDERED: LACTATED RINGER'S 1000ML 1,000 ML IV SCH (21:40)
[2017-05-25 21:55] LABS: BASO % 0.2 %; BASO ABS # 0.01 K/uL (0-0.2); EOS % 1.6 %; EOS ABS # 0.09 K/uL (0-0.5); IG# 0.01 K/uL (0.00-0.02); LYMPH % 19.8 %; LYMPH ABS # 1.09 K/uL (1.2-3.4); MONO % 10.2 %; MONO ABS # 0.56 K/uL (0.11-0.59); NEUT ABS # 3.75 K/uL (1.4-6.5)
[2017-05-25] MEDS: HEPARIN 25,000 UNIT/500ML D5W 500 ML IV PRN (22:40)
[2017-05-25 22:55] VITALS: BP 128/74; PULSE 84; TEMP 36.9; O2SAT 99
[2017-05-26 05:11] LABS: HEMATOCRIT 33.5 % (42-52); HEMOGLOBIN 11.1 g/dL (14.0-18.0); MEAN CELL VOLUME 95.7 fL (80-100); MEAN CORPUSCULAR HEMOGLOBIN 31.7 pg (25-34); MEAN CORPUSCULAR HGB CONC 33.1 g/dl (32-36); MEAN PLATELET VOLUME 9.8 fL (7.4-10.4); PLATELET COUNT 139 K/uL (130-400); RED CELL DISTRIBUTION WIDTH CV 13.9 % (11.5-14.5); RED CELL DISTRIBUTION WIDTH SD 48.1 fL (36.4-46.3)
[2017-05-26 06:02] LABS: INR 2.3 (0.9-1.1)
[2017-05-26 06:09] LABS: PTT PATIENT 124.2 SECONDS (21.0-31.0)
[2017-05-26] MEDS: OXYCODONE/ACETAMINOPHEN 5-325 TAB PO PRN (06:31)
[2017-05-26] MEDS: HEPARIN 25,000 UNIT/500ML D5W 500 ML IV PRN ×5 (07:25→23:16)
[2017-05-26 08:44] VITALS: BP 111/67; PULSE 79; TEMP 36.9; O2SAT 98
[2017-05-26] MEDS: TOPIRAMATE 100 MG TAB PO SCH ×3 (09:47→21:07)
--- NOTE | 2017-05-26 12:36 | Hospitalist Progress Note ---
Hospitalist Progress Note Date of Service May 26, 2017. (Leilani Kelley ., PRIYANKAC) Subjective Pt evaluation today including: conversation w/ patient, conversation w/ family , physical exam, chart review, lab review, review of inpatient medication list Pain: 9/10 sharp right thigh pain PO Intake: Tolerating PO diet Voiding: no voiding problems The patient complains of a 9/10 sharp pain in his right thigh that is worse with movement and weight bearing. The patient also notes some intermittent tingling in his right foot. He denies any known trauma or injury to the area. He states his only recent medicine change was the addition of Percocet on 05/20 due to the thigh pain. The patient denies fevers, chills, sweats, chest pain, palpitations, claudication, cough, wheezing, shortness of breath, nausea, vomiting, abdominal pain, dysuria, hematuria, urinary retention, paralysis, weakness. Additional Comments: See HPI for pertinent positives and negatives. All other systems reviewed and negative. (Leilani Kelley ., PRIYANKAC) Objective Vital Signs Date Time Temp Pulse Resp B/P (MAP) Pulse Ox O2 Delivery O2 Flow Rate FiO2 05/26/17 08:44 36.9 79 18 111/67 (82) 98 Room Air 05/26/17 07:45 Room Air 05/25/17 23:48 Room Air 05/25/17 22:55 36.9 84 16 128/74 (92) 99 Room Air 05/25/17 19:45 Room Air 05/25/17 18:10 36.7 98 18 115/76 Room Air 05/25/17 18:00 36.7 98 18 115/76 (89) 93 Room Air (Leilani Kelley PA-C) Physical Exam Notes: General appearance: Well-developed, well-nourished, no apparent distress Head: Normocephalic, atraumatic Eyes: Normal inspection, PERRL, EOMI ENT: Normal ENT inspection, hearing grossly normal, pharynx normal Neck: Supple, no JVD, trachea midline Respiratory/Chest: Lungs clear to auscultation, normal breath sounds, no respiratory distress Cardiovascular: Regular rate & rhythm, no gallop, no murmur Abdomen/GI: Normal bowel sounds, non-tender, soft Extremities/Musculoskeletal: +Right thigh TTP. Ecchymoses. Chronic venous stasis changes. No calf tenderness, no pedal edema Neurological/Psych: +Flat affect. Alert, oriented x 3 Skin: +Ecchymoses along lateral aspect right thigh, as well as medial aspect. Some ecchymosis wraps around posterior thigh. Scattered older, smaller ecchymoses over knee and proximal right lower leg. Normal color, warm/dry, no rash (Leilani Kelley ., PA-C) Laboratory Results Last 24 Hours Test 05/25/17 20:09 05/26/17 04:42 White Blood Count 5.30 K/uL 4.70 K/uL Red Blood Count 3.57 M/uL 3.50 M/uL Hemoglobin 11.3 g/dL 11.1 g/dL Hematocrit 33.9 % 33.5 % Mean Corpuscular Volume 95.0 fL 95.7 fL Mean Corpuscular Hemoglobin 31.7 pg 31.7 pg Mean Corpuscular Hemoglobin Concent 33.3 g/dl 33.1 g/dl Platelet Count 142 K/uL 139 K/uL Mean Platelet Volume 9.2 fL 9.8 fL Neutrophils (%) (Auto) 68.0 % Lymphocytes (%) (Auto) 19.8 % Monocytes (%) (Auto) 10.2 % Eosinophils (%) (Auto) 1.6 % Basophils (%) (Auto) 0.2 % Neutrophils # (Auto) 3.75 K/uL Lymphocytes # (Auto) 1.09 K/uL Monocytes # (Auto) 0.56 K/uL Eosinophils # (Auto) 0.09 K/uL Basophils # (Auto) 0.01 K/uL RDW Standard Deviation 48.7 fL 48.1 fL RDW Coefficient of Variation 14.1 % 13.9 % Immature Granulocyte % (Auto) 0.2 % Immature Granulocyte # (Auto) 0.01 K/uL Nucleated RBC Absolute Count (auto) 0.00 K/uL Nucleated Red Blood Cells % 0.0 % Prothrombin Time 22.0 SECONDS 23.4 SECONDS Prothromb Time International Ratio 2.1 2.3 Sodium Level 139 mmol/L Potassium Level 4.2 mmol/L Chloride Level 108 mmol/L Carbon Dioxide Level 26 mmol/L Anion Gap 5.0 mmol/L Blood Urea Nitrogen 23 mg/dl Creatinine 1.09 mg/dl Est Creatinine Clear Calc Drug Dose 105.7 ml/min Estimated GFR () 91.9 Estimated GFR (Non- 79.3 BUN/Creatinine Ratio 20.7 Random Glucose 100 mg/dl Calcium Level 8.6 mg/dl Activated Partial Thromboplast Time 124.2 SECONDS Partial Thromboplastin Ratio 4.8 (Leilani Kelley ., MARILYN) Assessment and Plan 51 y/o male with a history of Factor V Leiden, h/o CVA, and seizure disorder who presents with a right thigh hematoma and pain. Right thigh hematoma -Likely in right vastus lateralis per ultrasound -Plan for evacuation w/ortho 05/27 if INR allows -Warm compresses -Continue heparin drip -Increase morphine to 4 mg IV q4h prn pain -D/C Percocet, can continue oxycodone IR 5 mg PO q4h prn pain Factor V Leiden, chronic LLE DVT--per pt, INR goal 3.5-4 due to h/o clotting in typical 2-3 range. Takes 15 mg warfarin daily at home -INR had been 3.4 on 05/20, then started on Percocet and INR up to 5.1 on 05/23 -Continue to hold warfarin. INR 2.3 on 05/26. Heparin drip as above -D/C Percocet as acetaminophen can enhance warfarin effects Seizure disorder--developed following CVA 20 years ago (diagnosed with Factor V then) -Continue Lamictal 200 mg PO TID and Topamax 200 mg PO TID DVT prophylaxis -Enoxaparin 40 mg SC q24h -NIKKO Grimaldo Code Status -Level I, FULL RESUSCITATION STATUS (Leilani Kelley ., MARILYN) I interviewed and examined the patient. Discussed with Leilani Kelley PAC and agree with findings and plan as documented in the note. Any exceptions or clarifications are listed here: None This patient is concerned about his anticoagulation reversal for his upcoming thigh hematoma evacuation he still is in the 2 range with his INR will give him a very low dose of vitamin K this evening while he is on intravenous heparin in order to try to assure that his INR is 1.4 or lower tomorrow 05/27 otherwise he has no complaints or problems Vital signs show temp 36 9 pulse 84 respiratory 16 BP 126/74 O2 sat 98 on room air His leg is edematous and tender especially tubal external edge of his right quadricep muscle he also has some ecchymosis just distal to his right knee which is likely tracking from gravity Patient is covered for his thrombophilia with IV heparin and INR will be checked in the morning if below 1.4 and surgery deems is acceptable he will go to surgery for hematoma evacuation Documented By: Dontrell Allen (Dontrell Allen M.D.)
[2017-05-26] MEDS: MoRPHine SULFATE 4 MG/ML 1 ML CARP\\VIAL IV PRN ×3 (13:59→22:48)
[2017-05-26 15:18] VITALS: BP 112/71; PULSE 79; TEMP 36.9; O2SAT 97
--- NOTE | 2017-05-26 15:25 | History and Physical ---
History & Physical Date May 26, 2017. Chief Complaint Patient presents a 51-year-old white male with acute hematoma his right anterolateral thigh that occurred in the last week has expanded causing significant pain patient's on Coumadin taking 12 mg doses with an INR of 5.1 patient is been hospitalized for conversion from Coumadin to heparin to prepare for I&D of the acute hematoma of his right anterolateral thigh History of Present Illness The patient is a 51 year old male with complaints of hematoma right anterior lateral thigh patient on Coumadin as an acute bleed with no history of trauma Past Medical/Surgical History Medical Problems: (1) DVT (deep venous thrombosis) Additional History Hepatic Disease: No Endocrine Disorder: No Kidney Disease: No Hypertension: No Heart Disease: No Bleeding Tendencies: Yes Infectious Diseases: No Other: Patient with factor V deficiency history of DVTs Coumadin spin his anticoagulation methodology easier to be heparinized and ridged for surgical intervention Allergies Coded Allergies: Penicillins (Verified Allergy, Severe, 04/17/17) HIVES Sulfa Antibiotics (Verified Allergy, Unknown, ., 04/17/17) Home Medications Scheduled Lamotrigine (Lamictal), 200 MG PO TID Topiramate (Topamax), 200 MG PO TID Warfarin Sodium (Coumadin), 15 MG PO DAILY Scheduled PRN Oxycodone/Acetaminophen 5MG/325MG (Percocet 5MG/325MG), 2 TABLETS PO Q4H PRN for Pain Physical Examination Skin: warm/dry, no rash Eyes: normal inspection, EOMI, sclerae normal ENT: normal ENT inspection, pharynx normal Head: normocephalic, atraumatic Neck: supple, no adenopathy, trachea midline Respiratory/Chest: lungs clear, normal breath sounds, no respiratory distress Cardiovascular: regular rate, rhythm, no edema, no murmur Abdomen / GI: normal bowel sounds, non tender Back: normal inspection Extremities: + pertinent finding (hematoma right anterolateral thigh) Diagnosis Patient hematoma right anterolateral thigh acute bleed nontraumatic is on Coumadin for factor V deficiency Plan of Treatment Plan is to evacuate the hematoma and make a plan for a bridging with heparin and do this sometime tomorrow mid morning
[2017-05-26] MEDS ORDERED: PHYTONADIONE PED 1 MG/0.5ML AMP/SYRG IV ONE (15:45)
--- NOTE | 2017-05-26 16:34 | Oncology Consultation ---
Oncology/Heme Consultation Date of Consultation: May 26, 2017. Attending Physician: Dontrell De La Rosa D.O. Reason for Consultation: Thigh hematoma while on coumadin with a supratherapeutic INR Possible coagulopathy History of Present Illness Mr Mcfarland is an unfortunate 51 year old man who sustained a stroke in 1997 that led to a grand mal seizure and subsequent complex partial seizures, along with memory loss and other chronic neurologic issues. I have no records from this event, but based on prior consultations, it was felt this may have been thrombotic in origin and he was found to be heterozygous for factor V Leiden. In the early 1999s, he experienced a left leg DVT that has left him with chronic venous stasis changes in that leg. His tells me that a housekeeper/laundry assistant , at that time, continued to check serial ultrasounds weekly and, because the clot was not receding, kept increasing his warfarin dose and recommended maintaining an INR of 3.5-4. He has done so for quite some time, despite apparently being told by several hematologists that this is unwise. Interestingly, during a hospital stay in 2014, he was briefly off of warfarin and on IV heparin. He had a normal INR and Dr. Wesley ordered levels of protein C, protein S, and ATIII. His free protein S was 56%, which is low. He is hospitalized after developing severe right leg pain. An ultrasound revealed a large intramuscular hematoma. He does not recall any specific trauma to the leg. He has not had any other obvious bleeding episodes. Past Medical/Surgical History Medical Problems: (1) Hematoma of right thigh Status: Acute (2) Nephrolithiasis Status: Acute (3) Renal colic on right side Status: Acute Social History Smoking Status: Never Smoker Alcohol Use: none Drug Use: none Marital Status: Housing Status: lives with family Allergies Coded Allergies: Penicillins (Verified Allergy, Severe, 04/17/17) HIVES Sulfa Antibiotics (Verified Allergy, Unknown, ., 04/17/17) Home Medications Scheduled Lamotrigine (Lamictal), 200 MG PO TID Topiramate (Topamax), 200 MG PO TID Warfarin Sodium (Coumadin), 15 MG PO DAILY Scheduled PRN Oxycodone/Acetaminophen 5MG/325MG (Percocet 5MG/325MG), 2 TABLETS PO Q4H PRN for Pain Current Inpatient Medications Current Inpatient Medications Medications (Trade) Dose Ordered Sig/Thomas Route Start Time Stop Time Status Last Admin Dose Admin Lamotrigine (Lamictal Tab) 200 mg TID PO 05/25/17 21:00 06/24/17 20:59 05/26/17 14:08 200 MG Topiramate (Topamax Tab) 200 mg TID PO 05/25/17 21:00 06/24/17 20:59 05/26/17 14:07 200 MG Lactated Ringer's 1,000 ml @ 15 mls/hr Q24H IV 05/25/17 21:40 05/26/17 18:00 05/25/17 22:36 15 MLS/HR Heparin Sodium/ Dextrose 500 ml @ 27 mls/hr [id number] PRN IV 05/25/17 21:45 06/24/17 21:44 05/26/17 15:39 23 MLS/HR Morphine Sulfate (MoRPHine SULFATE INJ) 4 mg Q4H PRN IV 05/26/17 11:30 06/09/17 11:29 05/26/17 13:59 4 MG Oxycodone HCl (Roxicodone Immediate Rel Tab) 5 mg Q4H PRN PO 05/26/17 12:30 06/09/17 12:29 Phytonadione (Aqua-Mephyton Ped Inj) 1 mg ONE ONCE IV 05/26/17 15:45 05/26/17 15:46 UNV Review of Systems Constitutional: No fever, No fatigue Eyes: No worsening of vision ENT: No unusual epistaxis Respiratory: No shortness of breath, No hemoptysis Cardiovascular: No chest pain Abdomen: No pain, No nausea, No GI bleeding Musculoskeletal: + muscle pain (right thigh pain) Genitourinary - Male: No hematuria, No dysuria Hematologic / Lymphatic: + abnormal bleeding/bruising, No night sweats Physical Exam Date Time Temp Pulse Resp B/P (MAP) Pulse Ox O2 Delivery O2 Flow Rate FiO2 05/26/17 15:18 36.9 79 18 112/71 (85) 97 Room Air 05/26/17 08:44 36.9 79 18 111/67 (82) 98 Room Air 05/26/17 07:45 Room Air 05/25/17 23:48 Room Air 05/25/17 22:55 36.9 84 16 128/74 (92) 99 Room Air 05/25/17 19:45 Room Air 05/25/17 18:10 36.7 98 18 115/76 Room Air 05/25/17 18:00 36.7 98 18 115/76 (89) 93 Room Air General Appearance: WD/WN, no apparent distress Eyes: EOMI Respiratory/Chest: lungs clear Cardiovascular: regular rate, rhythm Abdomen/GI: non tender, soft Extremities/Musculoskelatal: + pertinent finding (his right thigh is tender and ecchymotic. He also has chronic venous stasis changes in his left leg) Neurologic/Psych: + pertinent finding (He has impaired recall of past events, though he answered questions appropriately (if slowly)) Lymphatic: no adenopathy Laboratory Results Last 24 Hours Test 05/25/17 20:09 05/26/17 04:42 05/26/17 13:26 White Blood Count 5.30 K/uL 4.70 K/uL Red Blood Count 3.57 M/uL 3.50 M/uL Hemoglobin 11.3 g/dL 11.1 g/dL Hematocrit 33.9 % 33.5 % Mean Corpuscular Volume 95.0 fL 95.7 fL Mean Corpuscular Hemoglobin 31.7 pg 31.7 pg Mean Corpuscular Hemoglobin Concent 33.3 g/dl 33.1 g/dl Platelet Count 142 K/uL 139 K/uL Mean Platelet Volume 9.2 fL 9.8 fL Neutrophils (%) (Auto) 68.0 % Lymphocytes (%) (Auto) 19.8 % Monocytes (%) (Auto) 10.2 % Eosinophils (%) (Auto) 1.6 % Basophils (%) (Auto) 0.2 % Neutrophils # (Auto) 3.75 K/uL Lymphocytes # (Auto) 1.09 K/uL Monocytes # (Auto) 0.56 K/uL Eosinophils # (Auto) 0.09 K/uL Basophils # (Auto) 0.01 K/uL RDW Standard Deviation 48.7 fL 48.1 fL RDW Coefficient of Variation 14.1 % 13.9 % Immature Granulocyte % (Auto) 0.2 % Immature Granulocyte # (Auto) 0.01 K/uL Nucleated RBC Absolute Count (auto) 0.00 K/uL Nucleated Red Blood Cells % 0.0 % Prothrombin Time 22.0 SECONDS 23.4 SECONDS Prothromb Time International Ratio 2.1 2.3 Sodium Level 139 mmol/L Potassium Level 4.2 mmol/L Chloride Level 108 mmol/L Carbon Dioxide Level 26 mmol/L Anion Gap 5.0 mmol/L Blood Urea Nitrogen 23 mg/dl Creatinine 1.09 mg/dl Est Creatinine Clear Calc Drug Dose 105.7 ml/min Estimated GFR () 91.9 Estimated GFR (Non- 79.3 BUN/Creatinine Ratio 20.7 Random Glucose 100 mg/dl Calcium Level 8.6 mg/dl Activated Partial Thromboplast Time 124.2 SECONDS 77.0 SECONDS Partial Thromboplastin Ratio 4.8 3.0 Assessment & Plan Mr. Mcfarland is a 51 year old man with a history of a stroke in his 30s and a DVT about 15 years ago. He has been maintained on life-long anticoagulation, but a housekeeper/laundry assistant in the past recommended a high INR goal (3.5-4), according to the patient's based on possible extension of the DVT while on coumadin. Regardless, he has generally done well despite the supratheraputic INR. However , he presents now with a spontaneous thigh hematoma that is almost certainly due to his high INR. With regard to his acute issue, he is planning for surgical evacuation today. Once it is safe, he should bridge back to coumadin, with a more appropriate goal INR (2-3). I can think of no reason to maintain an INR that high and he has no evidence that he's ever failed coumadin. He is in some ways fortunate he has not experienced a more life-threatening bleeding complication in this time. With regard to his thrombotic history, he is heterozygous for factor V Leiden, which is a minimal thrombotic risk and certainly not an indication for life- long anticoagulation. The low protein S level Dr. Wesley identified in 2014 is more interesting, as protein S deficiency is a major thrombophilia. While we generally expect to see much lower activity levels in asymptomatic patients to diagnose them with deficiency, in patients who have experienced thromboses in the past, a cutoff of <60% is consistent with the diagnosis of protein S deficiency. If we have an opportunity to do so, it would be interesting to attempt to confirm this finding by checking another level while he is off of coumadin, preferably for a week or so. If he is protein S deficient, he should absolutely remain on life-long anticoagulation.
[2017-05-26] MEDS ORDERED: PHYTONADIONE IV SCH (16:45)
[2017-05-26] MEDS ORDERED: SODIUM CHLORIDE 0.9% IV SCH (16:45)
[2017-05-26 18:35] VITALS: BP 96/55; PULSE 84; TEMP 36.8; O2SAT 97
[2017-05-26 18:50] VITALS: BP 106/68; PULSE 76; TEMP 36.8; O2SAT 98
[2017-05-26 21:32] LABS: PTT PATIENT 54.2 SECONDS (21.0-31.0)
[2017-05-26 22:45] VITALS: BP 116/73; PULSE 81; TEMP 37.1; O2SAT 99
[2017-05-27] VITALS (7 sets, daily range): BP systolic 119–147; BP diastolic 70–91; PULSE 73–95; TEMP 36.2–37; O2SAT 98–100
[2017-05-27] MEDS: MoRPHine SULFATE 4 MG/ML 1 ML CARP\\VIAL IV PRN ×3 (04:53→14:19)
[2017-05-27] MEDS ORDERED: STOP ORDER~HEPARIN DRIP ONE (05:00)
[2017-05-27 05:26] LABS: HEMATOCRIT 33.1 % (42-52); HEMOGLOBIN 11.1 g/dL (14.0-18.0); MEAN CELL VOLUME 94.3 fL (80-100); MEAN CORPUSCULAR HEMOGLOBIN 31.6 pg (25-34); MEAN CORPUSCULAR HGB CONC 33.5 g/dl (32-36); MEAN PLATELET VOLUME 9.6 fL (7.4-10.4); PLATELET COUNT 152 K/uL (130-400); RED CELL DISTRIBUTION WIDTH CV 14.1 % (11.5-14.5); RED CELL DISTRIBUTION WIDTH SD 48.4 fL (36.4-46.3)
[2017-05-27 05:38] LABS: INR 1.3 (0.9-1.1)
[2017-05-27 05:45] LABS: PTT PATIENT 51.8 SECONDS (21.0-31.0)
[2017-05-27] MEDS: TOPIRAMATE 100 MG TAB PO SCH ×3 (09:23→22:08)
[2017-05-27 09:40] LABS: PTT PATIENT 33.6 SECONDS (21.0-31.0)
[2017-05-27] MEDS ORDERED: EpHEDrine SULFATE INJ 50 MG/ML AMP IV PRN (09:45)
[2017-05-27] MEDS ORDERED: ONDANSETRON INJ 2 MG/ML 2 ML VIAL IV PRN (09:45)
[2017-05-27] MEDS ORDERED: ATROPINE SULFATE 0.1 MG/ML 5ML SYR IV PRN (09:45)
--- NOTE | 2017-05-27 10:17 | History & Physical Bridge Note ---
H&P Re-Evaluation Bridge Note: I have examined the patient, reviewed the History & Physical and in the interval since the performance of the History & Physical I have noted the following changes of clinical significance: No changes noted
[2017-05-27] MEDS ORDERED: FENTANYL CITRATE INJ 50 MCG/1 ML 2 ML VIAL ONE (11:47)
[2017-05-27] MEDS ORDERED: PROPOFOL IV EMULSION 10 MG/ML 20 ML VIAL IV ONE (11:47)
[2017-05-27] MEDS ORDERED: ONDANSETRON INJ 2 MG/ML 2 ML VIAL ONE (12:34)
[2017-05-27] MEDS ORDERED: LIDOCAINE HCL 2% 2 ML VIAL (20MG/ML) ONE (12:34)
[2017-05-27] MEDS ORDERED: DEXAMETHASONE SOD INJ 4 MG/ML VIAL ONE (12:34)
[2017-05-27] MEDS ORDERED: CEFAZOLIN SOD 1 GM VIAL ONE (12:38)
--- NOTE | 2017-05-27 12:55 | [facility] Post Operative Brief Note ---
Immediate Operative Summary Operative Date May 27, 2017. Pre-Operative Diagnosis hematoma right anterolateral thigh Post-Operative Diagnosis hematoma right anterolateral thigh Procedure(s) Performed Evacuation hematoma Surgeon Rj Denier Control Operator Surgeon(s) Daren Ceballos PA-C Estimated Blood Loss 5cc Findings Consistent with Post-Op Diagnosis Specimens none Anesthesia Type General Complication(s) none Disposition Disposition: Recovery Room / PACU
--- NOTE | 2017-05-27 12:58 | [facility] Operative Report ---
Operative Report Operative Date May 27, 2017. Pre-Operative Diagnosis hematoma right anterolateral thigh Post-Operative Diagnosis hematoma right anterolateral thigh Procedure(s) Performed Evacuation hematoma right thigh Surgeon Rj Railroad Cook Surgeon(s) Daren Ceballos PA-C Estimated Blood Loss 5cc Findings Spontaneous hematoma patient's on Coumadin for factor V deficiency hematoma right anterolateral thigh measuring 8 x 10 cm was evacuated Specimens none Drains hemovac Anesthesia Type General Complication(s) none Disposition Recovery Room / PACU Indications Painful spontaneous hematoma right anterior lateral thigh measuring 8 x 10 cm Description of Procedure After initiation of general anesthesia the right lower 70 socially prepping draping suture fracture surges type A 3 cm is made over the region lateral aspect of the distal thigh proximal to the VMO insertion subsequently a subperiosteal dissection carried down to the region of muscle small 3 cm muscle split with its fibers the hematoma was evacuated was irrigated with 3 L of sterile saline solution. With bacitracin after thorough irrigation debridement of the hematoma FloSeal was placed in the hematoma the deep hematoma that was subsequently had a Hemovac drain placed proximal to the incision incision closed with 3-0 Vicryl and 3-0 nylon a sterile compressive dressing was placed on 5 patient taken recovery in stable condition operative report dictated by Rj PIZARRO was necessary for prepping draping retraction and closure defect is subcutaneous and skin was necessary for the case I attest to the content of the Intraoperative Record and any orders documented therein. Any exceptions are noted below.
[2017-05-27] MEDS ORDERED: FLOSEAL HEMOSTATIC MATRIX 10ML TOP ONE (12:59)
[2017-05-27] MEDS: FENTANYL CITRATE INJ 50 MCG/1 ML 2 ML VIAL IV PRN ×4 (13:14→13:29)
[2017-05-27] MEDS: HYDROmorphone INJ 1 MG/ML SYR IV PRN ×4 (13:30→13:45)
[2017-05-27] MEDS ORDERED: HYDROmorphone INJ 2 MG/ML SYR/VIAL ONE (13:30)
--- NOTE | 2017-05-27 15:21 | Anesthesiology Progress Note ---
Anesthesia Post Op Note Date & Time May 27, 2017 at 15:21 Vital Signs Pain Intensity: 10.0 Vital Signs Past 12 Hours Date Time Temp Pulse Resp B/P (MAP) Pulse Ox O2 Delivery O2 Flow Rate FiO2 05/27/17 15:15 36.6 89 18 129/84 (99) 100 Room Air 05/27/17 14:15 Nasal Cannula 2.0 05/27/17 14:15 36.8 86 18 147/91 (109) 100 Nasal Cannula 2.0 05/27/17 13:55 36.8 69 16 140/82 100 Nasal Cannula 2 05/27/17 13:45 73 16 143/99 100 Nasal Cannula 2 05/27/17 13:35 71 16 156/79 100 Nasal Cannula 2 05/27/17 13:25 87 16 129/79 100 Oxymask 10 05/27/17 13:15 77 16 117/65 100 Oxymask 10 05/27/17 13:07 37.1 88 16 141/90 100 Oxymask 10 05/27/17 08:30 Room Air 05/27/17 08:06 98 Room Air 05/27/17 08:00 36.2 81 18 122/76 (91) 98 Room Air Notes Mental Status: alert / awake / arousable, participated in evaluation Pt Amnestic to Procedure: Yes Nausea / Vomiting: adequately controlled Pain: adequately controlled Airway Patency, RR, SpO2: stable & adequate BP & HR: stable & adequate Hydration State: stable & adequate Anesthetic Complications: no major complications apparent
[2017-05-27] MEDS: WARFARIN SOD 7.5 MG TAB PO SCH (15:38)
--- NOTE | 2017-05-27 16:51 | Hematology/Oncology Prog Note ---
Hematology/Onc Progress Note Date of Service May 27, 2017. Diagnoses Thigh hematoma Supratherapeutic INR History of CVA and DVT Medications Medications Administered Medications (Trade) Dose Ordered Sig/Thomas Route Start Time Stop Time Status Last Admin Dose Admin Lamotrigine (Lamictal Tab) 200 mg TID PO 05/25/17 21:00 06/24/17 20:59 05/27/17 14:19 200 MG Oxycodone/ Acetaminophen (Percocet 5-325mg Tab) 1 tab Q4H PRN PO 05/25/17 20:00 05/26/17 12:28 DC 05/26/17 06:31 1 TAB Topiramate (Topamax Tab) 200 mg TID PO 05/25/17 21:00 06/24/17 20:59 05/27/17 14:19 200 MG Morphine Sulfate (MoRPHine SULFATE INJ) 1 mg Q6H PRN IV 05/25/17 20:00 05/26/17 11:19 DC 05/26/17 07:57 1 MG Lactated Ringer's 1,000 ml @ 15 mls/hr Q24H IV 05/25/17 21:40 05/26/17 18:00 DC 05/25/17 22:36 15 MLS/HR Heparin Sodium/ Dextrose 500 ml @ 23 mls/hr [id number] PRN IV 05/25/17 21:45 05/27/17 05:00 DC 05/26/17 23:16 23 MLS/HR Morphine Sulfate (MoRPHine SULFATE INJ) 4 mg Q4H PRN IV 05/26/17 11:30 06/09/17 11:29 05/27/17 14:19 4 MG Phytonadione 1 mg/ Sodium Chloride 50.1 ml @ 101 mls/hr TODAY@1645 IV 05/26/17 16:45 05/26/17 17:15 DC 05/26/17 18:24 101 MLS/HR Miscellaneous (Stop Order) 1 ea ONE ONCE N/A 05/27/17 05:00 05/27/17 05:01 DC 05/27/17 04:53 1 EA Fentanyl Citrate (Fentanyl Inj) 25 mcg Q5M PRN IV 05/27/17 09:45 05/27/17 14:45 DC 05/27/17 13:29 25 MCG Hydromorphone HCl (Dilaudid Inj) 0.25 mg Q5M PRN IV 05/27/17 09:45 05/27/17 14:45 DC 05/27/17 13:45 0.25 MG Miscellaneous (Floseal Hemostatic Matrix 10ml) 10 ml ONE ONCE TOP 05/27/17 12:59 05/27/17 13:00 DC 05/27/17 12:50 10 ML Warfarin Sodium (Coumadin Tab) 7.5 mg DAILY@16 PO 05/27/17 16:00 06/26/17 15:59 05/27/17 15:38 7.5 MG Subjective Mr. Mcfarland is doing well and is scheduled for surgery shortly. He has no new or worsening pain. Review of Systems: Eyes: No worsening of vision ENT: No unusual epistaxis Respiratory: No cough, No hemoptysis Cardiovascular: No chest pain Abdomen: No pain, No GI bleeding Musculoskeletal: + muscle pain (thigh pain from his hematoma) Male : No hematuria Heme: No abnormal bleeding/bruising Skin: No rash Vital Signs Vital Signs Past 12 Hours Date Time Temp Pulse Resp B/P (MAP) Pulse Ox O2 Delivery O2 Flow Rate FiO2 05/27/17 16:17 36.8 80 18 119/76 (90) 99 Room Air 05/27/17 15:15 36.6 89 18 129/84 (99) 100 Room Air 05/27/17 14:15 Nasal Cannula 2.0 05/27/17 14:15 36.8 86 18 147/91 (109) 100 Nasal Cannula 2.0 05/27/17 13:55 36.8 69 16 140/82 100 Nasal Cannula 2 05/27/17 13:45 73 16 143/99 100 Nasal Cannula 2 05/27/17 13:35 71 16 156/79 100 Nasal Cannula 2 05/27/17 13:25 87 16 129/79 100 Oxymask 10 05/27/17 13:15 77 16 117/65 100 Oxymask 10 05/27/17 13:07 37.1 88 16 141/90 100 Oxymask 10 05/27/17 08:30 Room Air 05/27/17 08:06 98 Room Air 05/27/17 08:00 36.2 81 18 122/76 (91) 98 Room Air Physical Exam Constitutional: General Apperance: heathly-appearing Level of Distress: NAD Psychiatric: Mental Status: active & alert Lungs: Auscuitation: breath sounds normal Cardiovascular: Heart Auscultation: RRR Abdomen: Inspection & Palpation: soft, no tenderness, guarding & rebound Musculoskeletal: pertinent finding (tenderness to palpation of right thigh, with large ecchymosis) Laboratory Last 24 Hours Test 05/26/17 20:34 05/27/17 04:47 05/27/17 09:14 Activated Partial Thromboplast Time 54.2 SECONDS 51.8 SECONDS 33.6 SECONDS Partial Thromboplastin Ratio 2.1 2.0 1.3 White Blood Count 5.00 K/uL Red Blood Count 3.51 M/uL Hemoglobin 11.1 g/dL Hematocrit 33.1 % Mean Corpuscular Volume 94.3 fL Mean Corpuscular Hemoglobin 31.6 pg Mean Corpuscular Hemoglobin Concent 33.5 g/dl RDW Standard Deviation 48.4 fL RDW Coefficient of Variation 14.1 % Platelet Count 152 K/uL Mean Platelet Volume 9.6 fL Prothrombin Time 13.1 SECONDS Prothromb Time International Ratio 1.3 Assessment & Plan Mr. Mcfarland is headed for surgery this morning and his heparin drip is off. He should resume full-dose anticoagulation as soon as deemed safe from a hemostatic perspective. He should then be bridged back to coumadin with a target INR of 2-3. I had a long conversation with the patient and his . While there may be some marginal reduction in stroke risk with a higher INR, it is outweighed by the risk of life-threatening hemorrhage. He is fortunate that this event was not worse or that he did not have a more serious bleed, like an intracranial hemorrhage or GI bleed. If he is going to be off of coumadin for a few more days, it would be of academic interest to check a protein S level. If it is low, it might explain his thrombotic risk and would absolutely be an indication for lifelong anticoagulation. However, I see no need to prolong his hospital stay to assess this, as I think it is sam to keep him on long-term AC regardless.
--- NOTE | 2017-05-27 18:27 | Progress Note ---
Subjective Date of Service: May 27, 2017. Subjective pt underwent hematoma drainage 05/27, Dr Hicks from hematology did see patient and recommends life long AC Problem List Medical Problems: (1) Hematoma of right thigh Status: Acute (2) Nephrolithiasis Status: Acute (3) Renal colic on right side Status: Acute Objective Vital Signs Date Time Temp Pulse Resp B/P (MAP) Pulse Ox O2 Delivery O2 Flow Rate FiO2 05/27/17 17:37 36.6 73 16 119/75 (90) 99 Room Air 05/27/17 16:17 36.8 80 18 119/76 (90) 99 Room Air 05/27/17 15:15 36.6 89 18 129/84 (99) 100 Room Air 05/27/17 14:15 Nasal Cannula 2.0 05/27/17 14:15 36.8 86 18 147/91 (109) 100 Nasal Cannula 2.0 05/27/17 13:55 36.8 69 16 140/82 100 Nasal Cannula 2 05/27/17 13:45 73 16 143/99 100 Nasal Cannula 2 05/27/17 13:35 71 16 156/79 100 Nasal Cannula 2 05/27/17 13:25 87 16 129/79 100 Oxymask 10 05/27/17 13:15 77 16 117/65 100 Oxymask 10 05/27/17 13:07 37.1 88 16 141/90 100 Oxymask 10 05/27/17 08:30 Room Air 05/27/17 08:06 98 Room Air 05/27/17 08:00 36.2 81 18 122/76 (91) 98 Room Air 05/26/17 23:54 Room Air 05/26/17 22:45 37.1 81 16 116/73 (87) 99 Room Air 05/26/17 18:50 36.8 76 16 106/68 (81) 98 Room Air 05/26/17 18:35 36.8 84 18 96/55 (69) 97 Room Air Laboratory Results Last 24 Hours Test 05/26/17 20:34 05/27/17 04:47 05/27/17 09:14 Activated Partial Thromboplast Time 54.2 SECONDS 51.8 SECONDS 33.6 SECONDS Partial Thromboplastin Ratio 2.1 2.0 1.3 White Blood Count 5.00 K/uL Red Blood Count 3.51 M/uL Hemoglobin 11.1 g/dL Hematocrit 33.1 % Mean Corpuscular Volume 94.3 fL Mean Corpuscular Hemoglobin 31.6 pg Mean Corpuscular Hemoglobin Concent 33.5 g/dl RDW Standard Deviation 48.4 fL RDW Coefficient of Variation 14.1 % Platelet Count 152 K/uL Mean Platelet Volume 9.6 fL Prothrombin Time 13.1 SECONDS Prothromb Time International Ratio 1.3 Assessment and Plan Patient will have heparin based anticoagulation resumed in am if hemostasis is achieved, can consider lovenox 1mg/kg SC bid as a bridge until coumadin returns to 2-3 range, if surgery prefers heparin gtt for shorter half time to resolution can convert to lovenox at later time as may take days to have INR rise Documented By: Dontrell Allen
[2017-05-27] MEDS: CLINDAMYCIN IV 600 MG in DEXTROSE 5% 50ML 50 ML IV SCH (22:09)
[2017-05-27] MEDS: OXYCODONE HCL IR 5 MG TAB (IMMEDIATE RELEASE) PO PRN (22:09)
[2017-05-28 04:16] VITALS: BP 113/67; PULSE 86; TEMP 37; O2SAT 98
[2017-05-28] MEDS: CLINDAMYCIN IV 600 MG in DEXTROSE 5% 50ML 50 ML IV SCH (04:24)
[2017-05-28] MEDS: OXYCODONE HCL IR 5 MG TAB (IMMEDIATE RELEASE) PO PRN ×4 (04:25→20:54)
--- NOTE | 2017-05-28 06:28 | DIAGNOSTIC IMAGING REPORT ---
ULTRASOUND VENOUS DOPP LEFT LOWER EXT UNILAT CLINICAL HISTORY: factor 5 deficiency, postop hematoma removal LEG SWELLING COMPARISON STUDY: May 23, 2017 FINDINGS: No thrombus is visualized in the common femoral or superficial femoral veins. There is slow flow and linear stranding within the popliteal vein. Findings are felt to be chronic. No thrombus was visualized within the posterior tibial or anterior tibial veins. The peroneal vein was incompletely compressible. This could be chronic. IMPRESSION: 1. Chronic fibrin stranding within the left popliteal vein 2. Age-indeterminate thrombus within the left peroneal vein. Electronically signed by: Norbert Duke M.D. 05/28/2017 6:26 AM Dictated Date/Time: 05/28/2017 6:24 AM
[2017-05-28 07:25] VITALS: BP 119/71; PULSE 75; TEMP 36.8; O2SAT 97
[2017-05-28 07:27] LABS: HEMATOCRIT 33.6 % (42-52); HEMOGLOBIN 11.2 g/dL (14.0-18.0); MEAN CELL VOLUME 94.1 fL (80-100); MEAN CORPUSCULAR HEMOGLOBIN 31.4 pg (25-34); MEAN CORPUSCULAR HGB CONC 33.3 g/dl (32-36); MEAN PLATELET VOLUME 9.7 fL (7.4-10.4); PLATELET COUNT 166 K/uL (130-400); RED CELL DISTRIBUTION WIDTH CV 13.7 % (11.5-14.5); RED CELL DISTRIBUTION WIDTH SD 47.1 fL (36.4-46.3); WHITE BLOOD COUNT 5.41 K/uL (4.8-10.8)
[2017-05-28 07:34] LABS: INR 1.1 (0.9-1.1); PTT PATIENT 31.5 SECONDS (21.0-31.0)
[2017-05-28] MEDS: MoRPHine SULFATE 4 MG/ML 1 ML CARP\\VIAL IV PRN ×4 (08:27→23:30)
--- NOTE | 2017-05-28 09:09 | Orthopedic Progress Note ---
Orthopedic Progress Note Date of Service May 28, 2017. Subjective Post OP Day: 1 Reports: feeling well, Denies: chest pain, SOB, nausea / vomiting, light headedness, calf pain Additional Notes: PATIENT AND ARE CONCERNED WITH THE DELAY WITH STARTING THE HEPARIN. THEY THOUGHT IT WAS TO BE STARTED IMMEDIATELY POST OP. Objective calves soft nontender, N/V intact, capillary refill less than 2 sec., dressing C /D/I, A&O x3, toes mobile, hemovac drainage (ZERO DRAINAGE) Date Time Temp Pulse Resp B/P (MAP) Pulse Ox O2 Delivery O2 Flow Rate FiO2 05/28/17 07:25 36.8 75 16 119/71 (87) 97 Room Air 05/28/17 04:16 37.0 86 14 113/67 (82) 98 Room Air 05/27/17 23:49 Room Air 05/27/17 23:00 37.0 95 16 120/70 (87) 99 Room Air 05/27/17 17:37 36.6 73 16 119/75 (90) 99 Room Air 05/27/17 16:17 36.8 80 18 119/76 (90) 99 Room Air 05/27/17 15:30 Room Air 05/27/17 15:15 36.6 89 18 129/84 (99) 100 Room Air 05/27/17 14:15 Nasal Cannula 2.0 05/27/17 14:15 36.8 86 18 147/91 (109) 100 Nasal Cannula 2.0 05/27/17 13:55 36.8 69 16 140/82 100 Nasal Cannula 2 05/27/17 13:45 73 16 143/99 100 Nasal Cannula 2 05/27/17 13:35 71 16 156/79 100 Nasal Cannula 2 05/27/17 13:25 87 16 129/79 100 Oxymask 10 05/27/17 13:15 77 16 117/65 100 Oxymask 10 05/27/17 13:07 37.1 88 16 141/90 100 Oxymask 10 Laboratory Results 24 Hours: Test 05/28/17 06:50 Hematocrit 33.6 % Hemoglobin 11.2 g/dL Prothromb Time International Ratio 1.1 Prothrombin Time 11.3 SECONDS Assessment & Plan Assessment: POD#1 SP EVACUATION RIGHT THIGH HEMATOMA Plan: PT/OT DVT PROPH- LOVENOX IS TO START THIS AM, AFTER 24 HOURS AND HEMOSTASIS HAS BEEN ACHIEVED. I DID EXPLAIN THIS TO THE PATIENT AND HIS THIS AM. CURRENT INR 1.1, COUMADIN HAS BEEN RESTARTED. HEMOVAC WITH ZERO DRAINAGE. WILL KEEP IN PLACE TODAY TO ENSURE NO FURTHER BLEEDING ONCE LOVENOX STARTED. PAIN MANAGEMENT MEDICAL MANAGEMENT- [facility]. DC PLANNING- LIKELY DC HOME TOMORROW AFTER DRESSING AND DRAINED REMOVED IF NO EVIDENCE OF FURTHER BLEEDING.
[2017-05-28] MEDS ORDERED: ENOXAPARIN 1 MG/KG SQ SCH (09:15)
[2017-05-28] MEDS ORDERED: LOVENOX TEACHING KIT ONE (09:15)
[2017-05-28] MEDS: TOPIRAMATE 100 MG TAB PO SCH ×3 (10:30→20:52)
[2017-05-28] MEDS: ENOXAPARIN 100 MG/1ML SYR SQ SCH ×2 (10:31→20:53)
--- NOTE | 2017-05-28 10:31 | Anesthesiology Progress Note ---
Anesthesia Post Op Note Date & Time May 28, 2017 at 10:31 Vital Signs Vital Signs Past 12 Hours Date Time Temp Pulse Resp B/P (MAP) Pulse Ox O2 Delivery O2 Flow Rate FiO2 05/28/17 07:25 36.8 75 16 119/71 (87) 97 Room Air 05/28/17 04:16 37.0 86 14 113/67 (82) 98 Room Air 05/27/17 23:49 Room Air 05/27/17 23:00 37.0 95 16 120/70 (87) 99 Room Air Notes Mental Status: alert / awake / arousable, participated in evaluation Pt Amnestic to Procedure: Yes Nausea / Vomiting: adequately controlled Pain: adequately controlled Airway Patency, RR, SpO2: stable & adequate BP & HR: stable & adequate Hydration State: stable & adequate Anesthetic Complications: no major complications apparent
[2017-05-28 11:15] VITALS: BP 145/77; PULSE 78; TEMP 36.6; O2SAT 100
--- NOTE | 2017-05-28 15:01 | Hospitalist Progress Note ---
Hospitalist Progress Note Date of Service May 28, 2017. (Leilani Kelley ., PRIYANKAC) Subjective Pt evaluation today including: conversation w/ patient, conversation w/ family ( at bedside), physical exam, chart review, lab review, review of inpatient medication list Pain: 8/10 aching RLE pain PO Intake: Tolerating PO diet Voiding: no voiding problems The patient complains of an 8/10 aching pain in his right anterior thigh, but he had just received pain medicine right before my examination. He is passing gas, urinating and eating without difficulty. He otherwise denies complaints. The patient denies fevers, chills, sweats, chest pain, palpitations, claudication, cough, wheezing, shortness of breath, nausea, vomiting, abdominal pain, dysuria, hematuria, urinary retention, paralysis, weakness, numbness and tingling. Additional Comments: See HPI for pertinent positives and negatives. All other systems reviewed and negative. (Leilani Kelley .MOIRA-C) Objective Vital Signs Date Time Temp Pulse Resp B/P (MAP) Pulse Ox O2 Delivery O2 Flow Rate FiO2 05/28/17 11:15 36.6 78 16 145/77 (99) 100 Room Air 05/28/17 10:55 Room Air 05/28/17 07:25 36.8 75 16 119/71 (87) 97 Room Air 05/28/17 04:16 37.0 86 14 113/67 (82) 98 Room Air 05/27/17 23:49 Room Air 05/27/17 23:00 37.0 95 16 120/70 (87) 99 Room Air 05/27/17 17:37 36.6 73 16 119/75 (90) 99 Room Air 05/27/17 16:17 36.8 80 18 119/76 (90) 99 Room Air 05/27/17 15:30 Room Air 05/27/17 15:15 36.6 89 18 129/84 (99) 100 Room Air (Leilani Kelley PA-C) Physical Exam Notes: General appearance: Well-developed, well-nourished, no apparent distress Head: Normocephalic, atraumatic Eyes: Normal inspection, PERRL, EOMI ENT: Normal ENT inspection, hearing grossly normal, pharynx normal Neck: Supple, no JVD, trachea midline Respiratory/Chest: Lungs clear to auscultation, normal breath sounds, no respiratory distress Cardiovascular: Regular rate & rhythm, no gallop, no murmur Abdomen/GI: Normal bowel sounds, non-tender, soft Extremities/Musculoskeletal: +Right thigh TTP. RLE wrapped in markell bandage, hemovac in place w/no drainage. Chronic venous stasis changes. No calf tenderness, no pedal edema Neurological/Psych: +Flat affect. Alert, oriented x 3 Skin: Normal color, warm/dry, no rash (Leilani Kelley ., PA-C) Laboratory Results Last 24 Hours Test 05/28/17 06:50 White Blood Count 5.41 K/uL Red Blood Count 3.57 M/uL Hemoglobin 11.2 g/dL Hematocrit 33.6 % Mean Corpuscular Volume 94.1 fL Mean Corpuscular Hemoglobin 31.4 pg Mean Corpuscular Hemoglobin Concent 33.3 g/dl RDW Standard Deviation 47.1 fL RDW Coefficient of Variation 13.7 % Platelet Count 166 K/uL Mean Platelet Volume 9.7 fL Prothrombin Time 11.3 SECONDS Prothromb Time International Ratio 1.1 Activated Partial Thromboplast Time 31.5 SECONDS Partial Thromboplastin Ratio 1.2 (Leilani Kelley ., PA-C) Assessment and Plan 51 y/o male with a history of Factor V Leiden, h/o CVA, and seizure disorder who presents with a right thigh hematoma and pain. Right thigh hematoma--resolving -Likely in right vastus lateralis per ultrasound -S/p evacuation of hematoma and placement of hemovac 05/27 -Orthopedics following, appreciate recs: Monitor hemovac for further bleeding with start of therapeutic Lovenox. Likely d/c tomorrow if no more active bleeding on anticoagulation. -Continue morphine to 4 mg IV q4h prn pain -D/C Percocet, can continue oxycodone IR 5 mg PO q4h prn pain Factor V Leiden, chronic LLE DVT--per pt, INR goal 3.5-4 due to h/o clotting in typical 2-3 range. Takes 15 mg warfarin daily at home -INR had been 3.4 on 05/20, then started on Percocet and INR up to 5.1 on 05/23 -Hematology consulted, appreciate recs: Recommend keeping INR between 2-3, as risk of supratherapeutic range outweighs possible marginal benefit. Would keep on long-term anticoagulation. -Start therapeutic Lovenox 1 mg/kg SC BID -Continue warfarin 7.5 mg PO qd -INR 1.1 -D/C Percocet as acetaminophen can enhance warfarin effects Seizure disorder--developed following CVA 20 years ago (diagnosed with Factor V then) -Continue Lamictal 200 mg PO TID and Topamax 200 mg PO TID DVT prophylaxis -Therapeutic Lovenox -NIKKO hose and SCDs Code Status -Level I, FULL RESUSCITATION STATUS (Leilani Kelley ., PA-C) PA Physician Supervision Note: I interviewed and examined the patient. Discussed with Leilani Kelley PAC and agree with findings and plan as documented in the note. Any exceptions or clarifications are listed here: None Patient was seen in the company of his we discussed his target range for his INR. 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 Patient was evaluated at the [facility] which I personally reviewed his office records which the produced and although they did agree that he should be on Coumadin did not specifically state that they agreed with his INR range. Both myself and our hematologists on consult do believe his artery region should be a traditional INR range of 2-3 but he does require bridging with Lovenox of which she is very adept at administering himself Patient does have some pain where his hematoma was drained is good distal pulses sensation and capillary refill Patient's vital signs are stable Patient will be bridged with Lovenox likely once his surgical drain is pulled he can go home on Lovenox bridging and he can follow up with his outpatient INR management physician Documented By: Dontrell Allen (Dontrell Allen M.D.)
[2017-05-28 16:07] VITALS: BP 126/75; PULSE 86; TEMP 36.9; O2SAT 99
[2017-05-28] MEDS: WARFARIN SOD 7.5 MG TAB PO SCH (16:14)
--- NOTE | 2017-05-28 17:16 | Discharge Instructions ---
Discharge Instructions Date of Service May 28, 2017. Admission Reason for Admission: Rt Thigh Hematoma, Pain Management, Pre Op Discharge Discharge Diagnosis / Problem: evacuation right thigh hematoma Discharge Goals Goal(s): Decrease discomfort, Improve function, Increase independence Activity Recommendations Activity Limitations: as noted below Weightbearing Status: Right weightbearing (as tolerated) .be sure to have your inr checked frequently and often Instructions / Follow-Up Instructions / Follow-Up * YOU MAY WEIGHTBEAR TOLERATED ON YOUR RIGHT LEG * KEEP INCISION CLEAN AND DRY, COVERED WHILE SHOWERING FOR THE 1ST WEEK. YOU CAN THEN GET THE WOUND WET. NO TUB BATHS. DO NOT SOAK THE WOUND, DO NOT LET THE SHOWER BEAT ON THE INCISION AREA. QUICKLY RINSE THE AREA WITH THE SHOWER WATER, CLEAN AROUND THE WOUND AND PAT DRY. * ELEVATE ABOVE HEART LEVEL FOR SWELLING * INSTRUCTIONS HAVE BEEN PROVIDED TO YOU REGARDING BRIDGING YOUR LOVENOX AND COUMADIN, AND ARE SCHEDULED TO FOLLOW UP WITH YOUR FAMILY DOCTOR ON Thursday. PLEASE CONTACT YOUR PCP WITH ANY QUESTIONS * YOU CAN CONTINUE TO USE THE OPTIFOAM DRESSING ON YOUR LEFT LOWER LEG. CHANGE DAILY IF YOU CONTINUE TO HAVE SOME DRAINAGE FROM THE LEG. BE SURE TO LET YOUR PRIMARY CARE DOCTOR NOW ABOUT THE DRAINAGE FROM THAT LEG. Make walking a part of your daily routine. Be up as much as comfortable with rest periods throughout the day. Rest with leg elevation is very important. Use the ice wrap frequently for the first 3-4 weeks. D. There are no restrictions on activities. You may ride in a car, YOU MAY DRIVE IF YOU ARE LIMITING OR NOT TAKING YOUR PAIN NARCOTIC PAIN MEDICATIONS, shop, participate in product engineering manager and all social activities. E. Wear the long elastic stockings (NIKKO hose) 20 hours a day for 2 weeks after surgery. They can be removed several times a day for laundering and for a bath. F. You may shower, no tub baths until cleared by your doctor. SPECIAL CARE INSTRUCTIONS: VERY IMPORTANT TO READ AND REVIEW A. There are a few signs you need to watch for after you are home. Call [facility] if you notice any of the followin. Increased severe knee pain. Some pain is expected especially when you exercise. 2. Increased swelling in your leg or knee; pain or swelling of the calf muscle in either lower leg. 3. Any fluid drainage from the incision. 4. Shortness of breath or chest pain. B. Please call [facility] at if you have any concerns or questions about your operation or recovery. The doctor or his nurse will return your call promptly. IMPORTANT: * CALL IF INCREASED PAIN, REDNESS, DRAINAGE OR FEVER GREATER THAT 101. * WEAR NIKKO HOSE 20 HOURS PER DAY FOR 2 WEEKS. FOLLOW UP VISIT: If appointment is not already scheduled: Please call [facility] to make a follow-up appointment for 2 weeks after your surgery at . Current Hospital Diet Patient's current hospital diet: Regular Diet Discharge Diet Recommended Diet: Regular Diet Procedures Procedures Performed: Evacuation hematoma right thigh Pending Studies Studies pending at discharge: no Laboratory Results Lipid Panel Test 02/25/17 09:14 Range/Units Triglycerides Level 174 H 0-150 mg/dl Cholesterol Level 202 H 0-200 mg/dl HDL Cholesterol 56 mg/dl Cholesterol/HDL Ratio 3.6 LDL Cholesterol, Calculated 111 mg/dl Medical Emergencies . Who to Call and When: Medical Emergencies: If at any time you feel your situation is an emergency, please call 911 immediately. . Non-Emergent Contact Non-Emergency issues call your: Primary Care Provider, Surgeon . "Provider Documentation" section prepared by Daren Ceballos. . VTE Core Measure Inpt VTE Proph given/why not?: Enoxaparin (Lovenox)SQ, Warfarin (Coumadin), T.E.D. Stockings, SCD's [place] Drug Monitoring Program Search Results: patient reviewed within database, no issues identified
[2017-05-28 22:17] VITALS: BP 109/73; PULSE 86; TEMP 36.9; O2SAT 98
[2017-05-29] MEDS: OXYCODONE HCL IR 5 MG TAB (IMMEDIATE RELEASE) PO PRN (02:53)
[2017-05-29] MEDS: MoRPHine SULFATE 4 MG/ML 1 ML CARP\\VIAL IV PRN (08:11)
[2017-05-29] MEDS: TOPIRAMATE 100 MG TAB PO SCH ×3 (08:12→20:36)
[2017-05-29] MEDS: ENOXAPARIN 100 MG/1ML SYR SQ SCH ×2 (08:13→20:36)
[2017-05-29 08:21] VITALS: BP 120/78; PULSE 68; TEMP 36.7; O2SAT 99
[2017-05-29] MEDS ORDERED: LVNIS100 SQ (08:40)
[2017-05-29] MEDS ORDERED: WARF10TA PO (08:40)
[2017-05-29 09:10] LABS: INR 1.1 (0.9-1.1); PTT PATIENT 33.6 SECONDS (21.0-31.0)
[2017-05-29] MEDS ORDERED: OXYCODONE HCL IR 5 MG TAB (IMMEDIATE RELEASE) PO PRN (09:45)
--- NOTE | 2017-05-29 09:57 | Orthopedic Progress Note ---
Orthopedic Progress Note Date of Service May 29, 2017. Subjective Post OP Day: 2 Reports: feeling well Additional Notes: States that he is still using IV morphine to help control his pain. Otherwise he feels fine. No new complaints. Objective calves soft nontender, N/V intact, capillary refill less than 2 sec., dressing C /D/I, A&O x3, toes mobile HV drain reservoir is completely empty. Small amount of blood in the tubing. Thigh feels soft. Date Time Temp Pulse Resp B/P (MAP) Pulse Ox O2 Delivery O2 Flow Rate FiO2 05/29/17 08:21 36.7 68 18 120/78 (92) 99 Room Air 05/28/17 23:22 Room Air 05/28/17 22:17 36.9 86 18 109/73 (85) 98 Room Air 05/28/17 16:07 36.9 86 18 126/75 (92) 99 Room Air 05/28/17 15:25 Room Air 05/28/17 11:15 36.6 78 16 145/77 (99) 100 Room Air 05/28/17 10:55 Room Air Laboratory Results 24 Hours: Test 05/29/17 07:56 Prothromb Time International Ratio 1.1 Prothrombin Time 11.3 SECONDS Assessment & Plan Assessment: POD#2 SP EVACUATION RIGHT THIGH HEMATOMA Plan: PT/OT today DVT PROPH- LOVENOX STARTED BID AND ON PO COUMADIN HEMOVAC WITH ZERO DRAINAGE. DC TODAY PAIN MANAGEMENT - INCREASED OXYIR TO 2 TABS Q4H. TYLENOL ADDED WELL. MEDICAL MANAGEMENT- [facility]OSPITAL[facility] SERVICE DC PLANNING- WILL HAVE PT AMBULATE A BIT MORE ONCE THE DRAIN IS OUT AND DRESSING CHANGED. IF PAIN IS CONTROLLED ON THE ABOVE NOTED CHANGES, WE WILL PLAN ON DC'ING TO HOME TODAY. Inhouse Planning Pain Management: Morphine, PO Tylenol, Oxy IR DVT Prophylaxis: TEDs, SCDs, Coumadin, Lovenox Discharge Planning Discharge Planning: home
[2017-05-29 10:42] VITALS: O2SAT 99
[2017-05-29] MEDS ORDERED: ACET-24 PO (12:58)
[2017-05-29] MEDS ORDERED: OXYC1TAB3 PO ×2 (12:58→13:07)
[2017-05-29] MEDS: ACETAMINOPHEN 500 MG TAB PO SCH ×2 (14:29→21:45)
[2017-05-29 16:00] VITALS: BP 120/75; PULSE 74; TEMP 36.9; O2SAT 99
[2017-05-29] MEDS: WARFARIN SOD 7.5 MG TAB PO SCH (16:49)
--- NOTE | 2017-05-29 19:08 | Progress Note ---
Subjective Date of Service: May 29, 2017. Subjective this pt has good education regarding to lovenox administration, he also understands to changing target of INR to lower level pt has no other questions, will sign off Problem List Medical Problems: (1) Hematoma of right thigh Status: Acute (2) Nephrolithiasis Status: Acute (3) Renal colic on right side Status: Acute Review of Systems Constitutional: No fever, No chills, No weakness, No fatigue Respiratory: No cough, No shortness of breath Cardiac: No chest pain, No edema Abdomen: No pain, No nausea, No vomiting, No diarrhea Musculoskeletal: + joint pain, + muscle pain, + swelling Male : No dysuria, No incontinence Objective Vital Signs Date Time Temp Pulse Resp B/P (MAP) Pulse Ox O2 Delivery O2 Flow Rate FiO2 05/29/17 16:00 36.9 74 18 120/75 (90) 99 Room Air 05/29/17 15:30 Room Air 05/29/17 13:27 36.7 86 18 99 Room Air 05/29/17 10:42 99 Room Air 05/29/17 08:21 36.7 68 18 120/78 (92) 99 Room Air 05/29/17 08:00 Room Air 05/28/17 23:22 Room Air 05/28/17 22:17 36.9 86 18 109/73 (85) 98 Room Air Physical Exam General Appearance: WD/WN, no apparent distress Respiratory/Chest: chest non-tender, lungs clear, normal breath sounds Cardiovascular: regular rate, rhythm, no murmur Abdomen: normal bowel sounds, non tender, soft Extremities: + pedal edema, + swelling Neurologic/Psychiatric: alert, oriented x 3 Laboratory Results Last 24 Hours Test 05/29/17 07:56 Prothrombin Time 11.3 SECONDS Prothromb Time International Ratio 1.1 Activated Partial Thromboplast Time 33.6 SECONDS Partial Thromboplastin Ratio 1.3 Assessment and Plan P51 y/o male with a history of Factor V Leiden, h/o CVA, and seizure disorder who presents with a right thigh hematoma and pain. Right thigh hematoma--right vastus lateralis per ultrasound -S/p evacuation of hematoma and placement of hemovac 05/27 Factor V Leiden, chronic LLE DVT--per pt, INR goal2-3 due to h/o clotting in typical 2-3 range. reduce home warfarin to 10 mg warfarin -INR had been 3.4 on 05/20, then started on Percocet and INR up to 5.1 on 05/23 -Hematology consulted, appreciate recs: Recommend keeping INR between 2-3, as risk of supratherapeutic range outweighs possible marginal benefit. Would keep on long-term anticoagulation. -Start therapeutic Lovenox 1 mg/kg SC BID pt is adept at home administration Seizure disorder--developed following CVA 20 years ago (diagnosed with Factor V then) -Continue Lamictal 200 mg PO TID and Topamax 200 mg PO TID -NIKKO Grimaldo Code Status -Level I, FULL RESUSCITATION STATUS
[2017-05-29 23:00] VITALS: BP 124/75; PULSE 78; TEMP 36.8; O2SAT 100
[2017-05-30] MEDS: ACETAMINOPHEN 500 MG TAB PO SCH ×2 (05:45→14:00)
[2017-05-30 07:54] VITALS: BP 117/69; PULSE 66; TEMP 36.8; O2SAT 99
[2017-05-30 08:02] LABS: HEMATOCRIT 35.2 % (42-52); HEMOGLOBIN 11.7 g/dL (14.0-18.0); MEAN CELL VOLUME 95.1 fL (80-100); MEAN CORPUSCULAR HEMOGLOBIN 31.6 pg (25-34); MEAN CORPUSCULAR HGB CONC 33.2 g/dl (32-36); MEAN PLATELET VOLUME 9.6 fL (7.4-10.4); PLATELET COUNT 179 K/uL (130-400); RED CELL DISTRIBUTION WIDTH CV 13.8 % (11.5-14.5); RED CELL DISTRIBUTION WIDTH SD 47.5 fL (36.4-46.3); WHITE BLOOD COUNT 4.22 K/uL (4.8-10.8)
[2017-05-30 08:13] LABS: PTT PATIENT 32.1 SECONDS (21.0-31.0)
[2017-05-30] MEDS: TOPIRAMATE 100 MG TAB PO SCH ×2 (09:07→14:00)
[2017-05-30] MEDS: ENOXAPARIN 100 MG/1ML SYR SQ SCH (09:07)
--- NOTE | 2017-05-30 10:16 | Orthopedic Progress Note ---
Orthopedic Progress Note Date of Service May 30, 2017. Subjective Post OP Day: 3 Reports: feeling well, pain controlled w PO medications, Denies: complaints, calf pain Objective calves soft nontender, N/V intact, capillary refill less than 2 sec., dressing C /D/I, A&O x3, toes mobile Right thigh is soft and nontender. Ecchymosis throughout the lateral thigh. Date Time Temp Pulse Resp B/P (MAP) Pulse Ox O2 Delivery O2 Flow Rate FiO2 05/30/17 09:45 Room Air 05/30/17 07:54 36.8 66 16 117/69 (85) 99 Room Air 05/29/17 23:00 36.8 78 16 124/75 (91) 100 Room Air 05/29/17 22:40 Room Air 05/29/17 16:00 36.9 74 18 120/75 (90) 99 Room Air 05/29/17 15:30 Room Air 05/29/17 13:27 36.7 86 18 99 Room Air 05/29/17 10:42 99 Room Air Laboratory Results 24 Hours: Test 05/30/17 07:30 Hematocrit 35.2 % Hemoglobin 11.7 g/dL Assessment & Plan Assessment: POD#3 SP EVACUATION RIGHT THIGH HEMATOMA Plan: PT/OT today DVT PROPH- LOVENOX STARTED BID AND ON PO COUMADIN PAIN MANAGEMENT - Comfortable today lying/sitting in bed. MEDICAL MANAGEMENT- [facility] DC PLANNING- D/C home today. Inhouse Planning Pain Management: Morphine, PO Tylenol, Oxy IR DVT Prophylaxis: TEDs, SCDs, Coumadin, Lovenox Discharge Planning Discharge Planning: home
--- NOTE | 2017-05-30 14:37 | Discharge Summary ---
Orthopedic Discharge Summary Admission Date/Reason May 25, 2017 at 17:47 Rt Thigh Hematoma, Pain Management, Pre Op. Discharge Date/Disposition May 29, 2017 Home with services Diagnosis Principal Diagnosis: right thigh hematoma Procedure(s) Performed Evacuation hematoma right thigh Consultations medical consultation- Dr Jasso Hematology Consultation- Jaun Diego MD Medication Reconciliation New Medications: Oxycodone Ir (Roxicodone Ir) 5 Mg Tab 1-2 TAB PO Q4H PRN for Severe Pain, #36 TAB Acetaminophen (Sb Non-Aspirin Extra Stre) 500 Mg Tab 1000 MG PO Q8 for 10 Days, #60 TAB Enoxaparin (Enoxaparin Sodium) 100 Mg/Ml Inj 100 MG SQ Q12, #10 DOSE 2 Refills Changed Medications: Warfarin Sodium (Coumadin) 10 Mg Tab 10 MG PO DAILY, #30 TAB (Changed from: 15 MG) be sure to have your inr checked frequent and often Continued Medications: Lamotrigine (Lamictal) 200 Mg Tab 200 MG PO TID Topiramate (Topamax) 200 Mg Tab 200 MG PO TID Discontinued Medications: Oxycodone/Acetaminophen 5MG/325MG (Percocet 5MG/325MG) Tab 2 TABLETS PO Q4H PRN for Pain, #20 TAB PAIN Admission Physical Exam As per Admitting History & Physical. Hospital Course Patient was admitted to the hospital after he developed a spontaneous hematoma to his right thigh. he was admitted one day prior to the procedure to obtain hematology clearance and assistance with bridging off his coumadin. he tolerated the evacuation of hematoma without incident. post op, his coumadin was resumed and bridged with lovenox until therapeutic. his activity was progressed and well tolerated. please refer to daily progress notes for complete details. Discharge Instructions Discharge Instructions Date of Service May 28, 2017. Admission Reason for Admission: Rt Thigh Hematoma, Pain Management, Pre Op Discharge Discharge Diagnosis / Problem: evacuation right thigh hematoma Discharge Goals Goal(s): Decrease discomfort, Improve function, Increase independence Activity Recommendations Activity Limitations: as noted below Weightbearing Status: Right weightbearing (as tolerated) .be sure to have your inr checked frequently and often Instructions / Follow-Up Instructions / Follow-Up * YOU MAY WEIGHTBEAR TOLERATED ON YOUR RIGHT LEG * KEEP INCISION CLEAN AND DRY, COVERED WHILE SHOWERING FOR THE 1ST WEEK. YOU CAN THEN GET THE WOUND WET. NO TUB BATHS. DO NOT SOAK THE WOUND, DO NOT LET THE SHOWER BEAT ON THE INCISION AREA. QUICKLY RINSE THE AREA WITH THE SHOWER WATER, CLEAN AROUND THE WOUND AND PAT DRY. * ELEVATE ABOVE HEART LEVEL FOR SWELLING * INSTRUCTIONS HAVE BEEN PROVIDED TO YOU REGARDING BRIDGING YOUR LOVENOX AND COUMADIN, AND ARE SCHEDULED TO FOLLOW UP WITH YOUR FAMILY DOCTOR ON Thursday. PLEASE CONTACT YOUR PCP WITH ANY QUESTIONS Make walking a part of your daily routine. Be up as much as comfortable with rest periods throughout the day. Rest with leg elevation is very important. Use the ice wrap frequently for the first 3-4 weeks. D. There are no restrictions on activities. You may ride in a car, shop, participate in referral nurse and all social activities. E. Wear the long elastic stockings (NIKKO hose) 20 hours a day for 2 weeks after surgery. They can be removed several times a day for laundering and for a bath. F. You may shower, no tub baths until cleared by your doctor. SPECIAL CARE INSTRUCTIONS: VERY IMPORTANT TO READ AND REVIEW A. There are a few signs you need to watch for after you are home. Call [facility] if you notice any of the followin. Increased severe knee pain. Some pain is expected especially when you exercise. 2. Increased swelling in your leg or knee; pain or swelling of the calf muscle in either lower leg. 3. Any fluid drainage from the incision. 4. Shortness of breath or chest pain. B. Please call [facility] at if you have any concerns or questions about your operation or recovery. The doctor or his nurse will return your call promptly. IMPORTANT: * CALL IF INCREASED PAIN, REDNESS, DRAINAGE OR FEVER GREATER THAT 101. * WEAR NIKKO HOSE 20 HOURS PER DAY FOR 2 WEEKS. FOLLOW UP VISIT: If appointment is not already scheduled: Please call [facility] to make a follow-up appointment for 2 weeks after your surgery at . Current Hospital Diet Patient's current hospital diet: Regular Diet Discharge Diet Recommended Diet: Regular Diet
[2017-05-30 15:27] VITALS: BP 112/68; PULSE 82; TEMP 36.8; O2SAT 100
== END 2017-05-30 16:10 | disposition home health service (06) | DRG 988 ==
LOC: C.MSN 17:47 → EEVIPCON 17:47
PROVIDERS: ADMIT Orthopaedic Surgery; ATTEND Orthopaedic Surgery
PROC: 0K9Q00Z Drainage of Right Upper Leg Muscle with Drainage Device, Open Approach (ICD-10-PCS; principal; 2017-05-27 14:15)
DX: D68.32 Hemorrhagic disorder due to extrinsic circulating anticoagulants (principal); D68.51 Activated protein C resistance; I82.5Z1 Chronic embolism and thrombosis of unspecified deep veins of right distal lower extremity; M79.81 Nontraumatic hematoma of soft tissue; T45.515A Adverse effect of anticoagulants, initial encounter; I69.398 Other sequelae of cerebral infarction; G40.909 Epilepsy, unspecified, not intractable, without status epilepticus; Z79.01 Long term (current) use of anticoagulants; Z79.899 Other long term (current) drug therapy; Z88.0 Allergy status to penicillin; Z88.2 Allergy status to sulfonamides

== ENCOUNTER → 2017-05-25 | Outpatient (CLI) | payer OTHER ==
[~2017-05-25] MED LIST changes: +ACET-24 PO; +LVNIS100 SQ; +OXYC-57 PO
--- NOTE | 2017-05-25 12:40 | DIAGNOSTIC IMAGING REPORT ---
RIGHT LOWER EXTREMITY ULTRASOUND CLINICAL HISTORY: HEMATOMA R LATERAL THIGH COMPARISON STUDY: No previous studies for comparison. FINDINGS: Note is made of an 8.1 x 3.2 x 7.1 cm hypoechoic abnormality of the distal lateral right thigh. This contains no color flow and suggests a intramuscular hematoma, likely within the vastus lateralis. IMPRESSION: 8.1 x 3.2 x 7.1 cm suspected intramuscular hematoma within the right vastus lateralis. Sonographic follow-up to ensure resolution is recommended to exclude the possibility of an underlying lesion although none is identified on this study. Electronically signed by: James Tolliver M.D. 05/25/2017 12:39 PM Dictated Date/Time: 05/25/2017 12:36 PM
== END ==
LOC: C.ULTR 11:44
PROVIDERS: ATTEND Orthopaedic Surgery
DX: S70.11XA Contusion of right thigh, initial encounter (principal); X58.XXXA Exposure to other specified factors, initial encounter

== ENCOUNTER 2017-08-07 13:30 | Observation (INO) | payer OTHER ==
[~2017-08-07] VITALS: Ht 188 cm; Wt 106.9 kg
[~2017-08-07 13:30] MED LIST changes: +ACET-24 PO; +LVNIS100 SQ; -OXYC-57 PO
[2017-08-07 14:16] LABS: HEMATOCRIT 43.9 % (42-52); HEMOGLOBIN 14.4 g/dL (14.0-18.0); MEAN CELL VOLUME 93.4 fL (80-100); MEAN CORPUSCULAR HEMOGLOBIN 30.6 pg (25-34); MEAN CORPUSCULAR HGB CONC 32.8 g/dl (32-36); MEAN PLATELET VOLUME 10.3 fL (7.4-10.4); PLATELET COUNT 122 K/uL (130-400); RED CELL DISTRIBUTION WIDTH CV 13.6 % (11.5-14.5); RED CELL DISTRIBUTION WIDTH SD 46.7 fL (36.4-46.3); WHITE BLOOD COUNT 3.83 K/uL (4.8-10.8)
[2017-08-07 14:31] LABS: CALCIUM 8.6 mg/dl (8.5-10.1); CREATININE 1.18 mg/dl (0.60-1.40); POTASSIUM 4.3 mmol/L (3.5-5.1)
[2017-08-07 14:34] LABS: TOTAL PROTEIN 7.7 gm/dl (6.4-8.2)
[2017-08-07 14:36] LABS: INR 1.7 (0.9-1.1); PTT PATIENT 38.8 SECONDS (21.0-31.0)
[2017-08-07] MEDS ORDERED: WARF10TA4 PO ×2 (14:56)
--- NOTE | 2017-08-07 14:57 | EMERGENCY ROOM VISIT NOTE ---
History First contact with patient: 14:13 Chief Complaint: TIA Stated Complaint: TIA Nursing Triage Summary: pt has hx of factor V, has been on coumadin 20 years inr last week 1.7. had hx of revious cva 2013' states was confused last pm, this am having weakness and burning sensation of right side. pt now c/i h/a, blurred vision and h/a. 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 takes lamictal and topamax History of Present Illness The patient is a 51 year old male who presents to the Emergency Room with complaints of right-sided numbness in the face, right arm and leg burning sensation, and confusion. This started last night. It continued throughout the day today. No aggravating or relieving factors. He presented to the ER for further evaluation. The patient has a history of factor V Leiden and is on Coumadin. He states his last INR was 1.7. His stroke was in 2013. He follows with the [facility] physician group. No trauma. Pt denies LOC, fevers, chills, diaphoresis, visual changes, neck pain, chest pain, breathing difficulties, nausea, vomiting, abdominal pain, back pain, melena, hematochezia , urinary symptoms, weakness, lymphadenopathy, rash, or other complaints. Review of Systems See HPI for pertinent positives and negatives. A total of ten systems were reviewed and were otherwise negative. Past Medical/Surgical History Medical Problems: (1) DVT (deep venous thrombosis) (2) Symptoms of cerebrovascular accident (CVA) Social History Smoking Status: Never Smoker Drug Use: none Marital Status: Housing Status: lives with family Current/Historical Medications Scheduled Acetaminophen (Sb Non-Aspirin Extra Stre), 1,000 MG PO Q8 Enoxaparin (Enoxaparin Sodium), 100 MG SQ Q12 Lamotrigine (Lamictal), 200 MG PO TID Topiramate (Topamax), 200 MG PO TID Warfarin Sod (Jantoven), 15 MG PO 4XWK Warfarin Sod (Jantoven), 14 MG PO 3XWK Physical Exam Vital Signs Date Time Temp Pulse Resp B/P (MAP) Pulse Ox O2 Delivery O2 Flow Rate FiO2 08/07/17 17:40 62 18 08/07/17 17:10 60 17 100 08/07/17 17:00 126/88 08/07/17 16:40 65 17 100 08/07/17 16:35 64 23 100 08/07/17 16:05 67 20 100 08/07/17 16:00 120/83 08/07/17 15:35 62 15 100 08/07/17 15:34 97 Room Air 08/07/17 15:30 63 16 100 Room Air 08/07/17 15:28 115/83 08/07/17 14:30 65 20 100 Room Air 08/07/17 14:00 68 15 08/07/17 13:53 72 08/07/17 13:37 36.6 70 22 130/84 100 Room Air Physical Exam GENERAL: Awake, alert, tired-appearing, in no distress HENT: Normocephalic, atraumatic. Oropharynx unremarkable. EYES: Normal conjunctiva. Sclera non-icteric. NECK: Supple. No nuchal rigidity. FROM. No masses. RESPIRATORY: Clear to auscultation. No wheezes. No rales. Normal respiratory effort. CARDIAC: Normal rate. Normal rhythm. No murmurs. No rubs. Extremities warm and well perfused. Pulses equal. No JVD. GI: Soft, non-distended. No tenderness to palpation. No rebound or guarding. No masses. RECTAL: Deferred. MUSCULOSKELETAL: Atraumatic. Chest examination reveals no tenderness. The back is symmetrical on inspection without obvious abnormality. There is no CVA tenderness to palpation. No joint edema. LOWER EXTREMITIES: Calves are equal size bilaterally and non-tender. 1+ edema, worse on the left. Chronic venous discoloration, which is worse on the left. NEURO: Normal sensorium. No sensory or motor deficits noted except for subjective numbness in the right arm and right leg. No drift. Speech normal. Cranial nerves II through XII intact except for subjective numbness in the right side of the face. SKIN: No rash or jaundice noted. Medical Decision & Procedures ER Provider Diagnostic Interpretation: Head CT: A noncontrast CT scan of the head was performed and was negative for tumor, fracture, intracranial hemorrhage, or other acute pathology. Laboratory Results 08/07/17 13:55 08/07/17 13:55 Test 08/07/17 13:55 08/07/17 14:01 5/4/18 17:21 08/07/17 17:28 Red Blood Count 4.70 M/uL (4.7-6.1) Mean Corpuscular Volume 93.4 fL (80-100) Mean Corpuscular Hemoglobin 30.6 pg (25-34) Mean Corpuscular Hemoglobin Concent 32.8 g/dl (32-36) RDW Standard Deviation 46.7 fL (36.4-46.3) RDW Coefficient of Variation 13.6 % (11.5-14.5) Mean Platelet Volume 10.3 fL (7.4-10.4) Prothrombin Time 17.6 SECONDS (9.0-12.0) Prothromb Time International Ratio 1.7 (0.9-1.1) Activated Partial Thromboplast Time 38.8 SECONDS (21.0-31.0) Partial Thromboplastin Ratio 1.5 Anion Gap 4.0 mmol/L (3-11) Est Creatinine Clear Calc Drug Dose 100.6 ml/min Estimated GFR () 83.5 Estimated GFR (Non- 72.0 BUN/Creatinine Ratio 14.9 (10-20) Calcium Level 8.6 mg/dl (8.5-10.1) Total Bilirubin 0.3 mg/dl (0.2-1) Aspartate Amino Transf (AST/SGOT) 23 U/L (15-37) Alanine Aminotransferase (ALT/SGPT) 41 U/L (12-78) Alkaline Phosphatase 91 U/L (45-117) Total Protein 7.7 gm/dl (6.4-8.2) Albumin 4.0 gm/dl (3.4-5.0) Globulin 3.7 gm/dl (2.5-4.0) Albumin/Globulin Ratio 1.1 (0.9-2) Creatine Kinase MB 3.1 ng/ml (0.5-3.6) Troponin I < 0.015 ng/ml (0-0.045) Creatine Kinase MB Ratio (0-3.0) Urine Color YELLOW Urine Appearance CLEAR (CLEAR) Urine pH 6.5 (4.5-7.5) Urine Specific [place] 1.010 (1.000-1.030) Urine Protein NEG (NEG) Urine Glucose (UA) NEG (NEG) Urine Ketones NEG (NEG) Urine Occult Blood NEG (NEG) Urine Nitrite NEG (NEG) Urine Bilirubin NEG (NEG) Urine Urobilinogen NEG (NEG) Urine Leukocyte Esterase NEG (NEG) Medical Decision Triage Nursing notes reviewed. The patient's presentation and history were concerning for stroke like symptoms. Etiologies such as CVA, TIA, metabolic, infection, hypo/hyperglycemia, electrolyte abnormalities, cardiac sources, intracerebral event, toxicologic, neurologic, as well as others were entertained. The patient is out of the window for thrombolytics and has contraindications. Patient was evaluated. He had complaints of confusion and right facial numbness and right extremity numbness as well. He has a history of hypercoagulability. He is on Coumadin. He is slightly subtherapeutic. His CBC and chemistry panel was otherwise unremarkable. The patient underwent CT imaging and this did not reveal any acute findings. Given his symptomatology and his history which is very concerning for hypercoagulability and prior stroke further management in the hospital was felt to be appropriate. The patient and his significant other felt comfortable with this. A consultation was placed with Dr. Obregon of the [facility] hospitalist service. The patient was evaluated in the ER for further management. Impression Primary Impression: Right facial numbness Additional Impressions: Numbness of right lower extremity Right upper extremity numbness Symptoms of cerebrovascular accident (CVA) Departure Information Dispostion Being Evaluated By Hospitalist Referrals Divya Gilbert DO (PCP) Patient Instructions My [facility] Problem Qualifiers
--- NOTE | 2017-08-07 15:03 | DIAGNOSTIC IMAGING REPORT ---
CT OF THE HEAD WITHOUT CONTRAST CLINICAL HISTORY: Right-sided numbness. Factor V Leiden deficiency. COMPARISON STUDY: No previous studies for comparison. CT DOSE: 537.48 mGy.cm TECHNIQUE: Helical axial images of the head were obtained without IV contrast. Automated exposure control was utilized for the study. A dose lowering technique was utilized adhering to the principles of ALARA. FINDINGS: No acute intracranial hemorrhage, midline shift or mass effect is present. Ventricular system is normal. Basilar cisterns are patent. There are no extra-axial collections. Lowery-white differentiation is maintained. There are no findings to suggest acute dural sinus thrombosis or acute territorial infarct. There are no significant calvarial abnormalities. Visualized portions of the sinuses and mastoid air cells are clear. IMPRESSION: No acute intracranial findings. Electronically signed by: James Tolliver M.D. 08/07/2017 3:02 PM Dictated Date/Time: 08/07/2017 3:00 PM
[2017-08-07] MEDS ORDERED: WARFARIN SOD 10 MG TAB PO SCH (17:30)
[2017-08-07] MEDS ORDERED: PHARMACIST DISCHARGE MED REC CONSULT PRN (17:30)
[2017-08-07] MEDS ORDERED: POLYETHYLENE (MIRALAX) 17 GM PACK PO PRN (17:45)
[2017-08-07] MEDS ORDERED: ACETAMINOPHEN 325 MG TAB PO PRN (17:45)
[2017-08-07] MEDS ORDERED: ONDANSETRON INJ 2 MG/ML 2 ML VIAL IV PRN (17:45)
[2017-08-07] MEDS ORDERED: MAGNESIUM HYDROXIDE SUSP 30 ML UDC PO PRN (17:45)
[2017-08-07] MEDS ORDERED: ENOXAPARIN 1 MG/KG SQ SCH (17:45)
[2017-08-07] MEDS ORDERED: ALUMINUM/MAGNESIUM/SIMETH (MAALOX MAX) 30 ML UDC PO PRN (17:45)
[2017-08-07] MEDS ORDERED: NITROGLYCERIN 0.4 MG SL PER TAB CHARGE SL PRN (17:45)
[2017-08-07] MEDS ORDERED: MoRPHine SULFATE 2 MG/ML CARP IV PRN (17:45)
--- NOTE | 2017-08-07 17:49 | History and Physical ---
History & Physical Date & Time of Service: August 07, 2017 at 17:27 Chief Complaint: Tia, Laneal Primary Care Physician: Divya Gilbert DO History of Present Illness Source: patient, family, clinic records, hospital records Patient is a pleasant 51 y/o male, with PMHx of factor V Leiden deficiency, chronic LLE DVT, h/o CVA, and seizure disorder, who presented to the ED because of R-sided numbness/tingling, and periodic confusion. History came largely from as she states patient has mild cognitive dysfunction since first CVA. This morning patient started to complain RUE/RLE "hotness" which then turned into numbness/tingling. He also note R facial numbness/tingling. note episodes of confusion throughout the day. Per , his INR is to be between 3-4. Patient was previously admitted In May 2017 for R thigh hematoma requiring evacuation. At that time, hematology was consulted and recommended INR between 2 -3. prefers not to see hematology during this admission because "when his INR is lower than 3 he becomes symptomatic." +urinary frequency. Patient denies any fever, chills, sweats, lightheadedness, dizziness, vision changes, CP, palpitations, edema, SOB, wheezing, cough, abdominal pain, nausea, vomiting, diarrhea, melena, weakness, muscle/joint pain, anxiety/depression, active bleeding, or new skin discoloration/changes. Past Medical/Surgical History Medical Problems: factor V Leiden deficiency chronic LLE DVT h/o CVA seizure disorder Social History Smoking Status: Never Smoker Drug Use: none Marital Status: Housing status: lives with family Immunizations History of Influenza Vaccine: No History of Tetanus Vaccine?: Yes History of Pneumococcal: Unknown History of Hepatitis B Vaccine: No Allergies Coded Allergies: Penicillins (Verified Allergy, Severe, 08/07/17) HIVES Sulfa Antibiotics (Verified Allergy, Unknown, ., 08/07/17) Home Medications Scheduled Acetaminophen (Sb Non-Aspirin Extra Stre), 1,000 MG PO Q8 Enoxaparin (Enoxaparin Sodium), 100 MG SQ Q12 Lamotrigine (Lamictal), 200 MG PO TID Topiramate (Topamax), 200 MG PO TID Warfarin Sod (Jantoven), 15 MG PO 4XWK Warfarin Sod (Jantoven), 14 MG PO 3XWK Physical Exam Vital Signs Date Time Temp Pulse Resp B/P (MAP) Pulse Ox O2 Delivery O2 Flow Rate FiO2 08/07/17 16:35 64 23 100 08/07/17 16:05 67 20 100 08/07/17 16:00 120/83 08/07/17 15:35 62 15 100 08/07/17 15:34 97 Room Air 08/07/17 15:30 63 16 100 Room Air 08/07/17 15:28 115/83 08/07/17 14:30 65 20 100 Room Air 08/07/17 14:00 68 15 08/07/17 13:53 72 08/07/17 13:37 36.6 70 22 130/84 100 Room Air General Appearance: no apparent distress Head: normocephalic, atraumatic Eyes: normal inspection, PERRL ENT: hearing grossly normal Neck: supple, no JVD Respiratory/Chest: lungs clear, no respiratory distress, no accessory muscle use Cardiovascular: regular rate, rhythm Abdomen/GI: normal bowel sounds, non tender, soft Back: normal inspection Extremities/Musculoskelatal: no calf tenderness, no pedal edema Neurologic/Psych: no motor/sensory deficits, alert, normal mood/affect, oriented x 3, + pertinent finding (no facial droop; speech appropraite and fluent; no pronator drift) Skin: normal color, warm/dry, no rash Diagnostics Laboratory Results Results Past 24 Hours Test 08/07/17 13:55 Range/Units White Blood Count 3.83 4.8-10.8 K/uL Red Blood Count 4.70 4.7-6.1 M/uL Hemoglobin 14.4 14.0-18.0 g/dL Hematocrit 43.9 42-52 % Mean Corpuscular Volume 93.4 80-100 fL Mean Corpuscular Hemoglobin 30.6 25-34 pg Mean Corpuscular Hemoglobin Concent 32.8 32-36 g/dl RDW Standard Deviation 46.7 36.4-46.3 fL RDW Coefficient of Variation 13.6 11.5-14.5 % Platelet Count 122 130-400 K/uL Mean Platelet Volume 10.3 7.4-10.4 fL Prothrombin Time 17.6 9.0-12.0 SECONDS Prothromb Time International Ratio 1.7 0.9-1.1 Activated Partial Thromboplast Time 38.8 21.0-31.0 SECONDS Partial Thromboplastin Ratio 1.5 Sodium Level 142 136-145 mmol/L Potassium Level 4.3 3.5-5.1 mmol/L Chloride Level 113 98-107 mmol/L Carbon Dioxide Level 25 21-32 mmol/L Anion Gap 4.0 3-11 mmol/L Blood Urea Nitrogen 18 7-18 mg/dl Creatinine 1.18 0.60-1.40 mg/dl Est Creatinine Clear Calc Drug Dose 100.6 ml/min Estimated GFR () 83.5 Estimated GFR (Non- 72.0 BUN/Creatinine Ratio 14.9 10-20 Random Glucose 78 70-99 mg/dl Calcium Level 8.6 8.5-10.1 mg/dl Total Bilirubin 0.3 0.2-1 mg/dl Aspartate Amino Transf (AST/SGOT) 23 15-37 U/L Alanine Aminotransferase (ALT/SGPT) 41 12-78 U/L Alkaline Phosphatase 91 45-117 U/L Total Protein 7.7 6.4-8.2 gm/dl Albumin 4.0 3.4-5.0 gm/dl Globulin 3.7 2.5-4.0 gm/dl Albumin/Globulin Ratio 1.1 0.9-[address] OF THE HEAD WITHOUT CONTRAST CLINICAL HISTORY: Right-sided numbness. Factor V Leiden deficiency. COMPARISON STUDY: No previous studies for comparison. CT DOSE: 537.48 mGy.cm TECHNIQUE: Helical axial images of the head were obtained without IV contrast. Automated exposure control was utilized for the study. A dose lowering technique was utilized adhering to the principles of ALARA. FINDINGS: No acute intracranial hemorrhage, midline shift or mass effect is present. Ventricular system is normal. Basilar cisterns are patent. There are no extra-axial collections. Lowery-white differentiation is maintained. There are no findings to suggest acute dural sinus thrombosis or acute territorial infarct. There are no significant calvarial abnormalities. Visualized portions of the sinuses and mastoid air cells are clear. IMPRESSION: No acute intracranial findings. Electronically signed by: James Tolliver M.D. 08/07/2017 3:02 PM Dictated Date/Time: 08/07/2017 3:00 PM The status of this report is Signed. Draft = Not yet reviewed or approved by Radiologist. Signed = Reviewed and approved by Radiologist. EKG VENTURA CARPIO ID:[id number] 07-AUG-2017 13:50:35 [facility] Normal sinus rhythm with sinus arrhythmia Normal ECG When compared with ECG of 01-MAY-2014 11:55, Questionable change in QRS axis Confirmed by JOSUE MALDONADO ([id number]) on 08/07/2017 4:23:40 PM 25mm/s 10mm/mV 150Hz 8.0 SP2 12SL 241 DWAIN: 0 Referred by: Confirmed By: JOSUE MALDONADO Vent. rate 65 BPM FL interval 178 ms QRS duration 92 ms QT/QTc 368/382 ms P-R-T axes 53 -10 35 1965 (51 yr) Male 75in 200lb Room: Loc:15 Supervisor Electronics Processing:Dorita Gottlieb ind: Impression Assessment and Plan Patient is a pleasant 51 y/o male, with PMHx of factor V Leiden deficiency, chronic LLE DVT, h/o CVA, and seizure disorder, who presented to the ED because of R-sided numbness/tingling, and periodic confusion. CVA symptoms, h/o CVA: - Admit to tele for cardiac monitoring - Trend cardiac enzymes - O2 protocol - EKG w/out acute ischemic changes- EKG QAM and PRN for chest pain - CT of head unremarkable for acute findings - Obtain ECHO, MRI brain combo, and carotid US - Check hgbA1c and lipid panel - Stroke protocol: PT/OT and dysphagia screen- advance diet as tolerated, aspiration/fall precautions, routine neuro checks - Consult neurology, appreciate recommendations Factor V Leiden deficiency, h/o chronic LLE DVT: - Continue Coumadin- follow PT/INR and adjust dose PRN- per , goal INR 3-4 - Bridge w/ Lovenox SQ 1 mg/kg BID due to INR of 1.7 h/o seizure disorder after CVA: Continue Topamax and Lamictal- check levels Urinary frequency: Obtain UA DVT prophylaxis: Coumadin + Lovenox bridge Code status: LEVEL V, DNR Dispo: From home, lives w/ - PT/OT and CM consulted Resuscitation Status LEVEL I, FULL VTE Prophylaxis Will order VTE Prophylaxis: Yes
[2017-08-07 18:02] LABS: CKMB 3.1 ng/ml (0.5-3.6)
--- NOTE | 2017-08-07 18:30 | DIAGNOSTIC IMAGING REPORT ---
CAROTID DOPPLER NECK ART CLINICAL HISTORY: 51 years-old Male with Stroke. Acute strokelike symptoms COMPARISON: CT head of same day TECHNIQUE: Multiple real time sonographic images of the carotid bifurcations were obtained assessing mcclellan scale, color Doppler and spectral wave form appearance FINDINGS: Blood pressures were not obtained. RIGHT CAROTID: The peak systolic velocity of the mid ICA measured 73.5 cm/sec. The end diastolic velocity measured 35.1 cm/sec. The ICA to CCA ratio measured 1.3 which correlates with a stenosis of 0-50 %. Peak systolic velocity of the mid common carotid artery measures 82.8 cm/s. LEFT CAROTID: The peak systolic velocity of the mid ICA measured 69.1 cm/sec. The end diastolic velocity measured 30.7 cm/sec. The ICA to CCA ratio measured 1.0 which correlates with a stenosis of 0-50%. Peak systolic velocity of the proximal common carotid artery measured 95.2 cm/s. There is normal antegrade vertebral flow bilaterally. No significant atherosclerotic plaquing. IMPRESSION: 1. No hemodynamically significant stenosis or significant atherosclerotic plaquing. 2. Normal antegrade vertebral flow bilaterally. The above report was generated using voice recognition software. It may contain grammatical, syntax or spelling errors. Electronically signed by: Dayron Leon M.D. 08/07/2017 6:29 PM Dictated Date/Time: 08/07/2017 6:26 PM
[2017-08-07 19:06] VITALS: BP 133/89; PULSE 59; TEMP 36.6; O2SAT 100; Ht 188 cm; Wt 106.9 kg
[2017-08-07] MEDS ORDERED: WARFARIN PO SCH ×2 (20:00)
[2017-08-07] MEDS ORDERED: IV FLUIDS COMPLETED PRN (20:00)
[2017-08-07] MEDS ORDERED: GADAVIST IV PRN (21:00)
[2017-08-07] MEDS: TOPIRAMATE 100 MG TAB PO SCH (21:23)
[2017-08-07] MEDS: ENOXAPARIN 120 MG/0.8 ML SYR SQ SCH (21:24)
[2017-08-07 23:00] VITALS: BP 145/82; PULSE 50; TEMP 36.8; O2SAT 92
[2017-08-08] VITALS: O2SAT 92
--- NOTE | 2017-08-08 00:03 | DIAGNOSTIC IMAGING REPORT ---
BRAIN COMBO HISTORY: 51 years-old Male Stroke acute strokelike symptoms with headache and blurred vision COMPARISON: None available TECHNIQUE: Multiplanar multisequence MRI of the brain was obtained both with and without the use of 10.5 mL Gadavist FINDINGS: Large bbgwj-by-evbq brine maker localizer images demonstrate no gross abnormality. There is no restricted diffusion to suggest acute or subacute infarction. The midline structures including the corpus callosum, brainstem, optic chiasm, pituitary and pineal glands are unremarkable on the sagittal T1 series. There is no cerebellar tonsillar herniation. There is no acute intracranial hemorrhage, midline shift, abnormal extra-axial collections, hydrocephalus or intracranial mass. Mild degree of patchy punctate foci of T2/FLAIR prolongation within the subcortical white matter of the cerebral hemispheres bilaterally. The major flow voids at the level of the skull base appear unremarkable. Mastoid air cells are clear. Mild mucosal thickening of the maxillary and ethmoid sinuses. Scalp, orbits and skull are within normal limits. There is no abnormal intra-axial or extra-axial enhancement identified. IMPRESSION: 1. No acute intracranial abnormality or abnormal enhancement identified. 2. Indeterminate mild degree of patchy punctate foci of T2/FLAIR prolongation within the subcortical white matter of the cerebral hemispheres bilaterally, possibly reflecting early chronic microvascular ischemic changes or sequela of chronic migraines among other etiologies. 3. Mild paranasal sinus disease. The above report was generated using voice recognition software. It may contain grammatical, syntax or spelling errors. Electronically signed by: Dayron Leon M.D. 08/08/2017 12:02 AM Dictated Date/Time: 08/07/2017 11:54 PM
[2017-08-08 02:03] LABS: CKMB 2.5 ng/ml (0.5-3.6)
[2017-08-08 03:43] VITALS: BP 116/73; PULSE 67; TEMP 36.6; O2SAT 99
[2017-08-08 04:00] VITALS: O2SAT 99
[2017-08-08 05:54] LABS: BASO % 0.3 %; BASO ABS # 0.01 K/uL (0-0.2); EOS % 1.3 %; EOS ABS # 0.05 K/uL (0-0.5); HEMATOCRIT 43.8 % (42-52); HEMOGLOBIN 14.4 g/dL (14.0-18.0); IG# 0.01 K/uL (0.00-0.02); LYMPH % 40.3 %; LYMPH ABS # 1.56 K/uL (1.2-3.4); MEAN CELL VOLUME 93.4 fL (80-100); MEAN CORPUSCULAR HEMOGLOBIN 30.7 pg (25-34); MEAN CORPUSCULAR HGB CONC 32.9 g/dl (32-36); MEAN PLATELET VOLUME 10.2 fL (7.4-10.4); MONO % 10.6 %; MONO ABS # 0.41 K/uL (0.11-0.59); NEUT % 47.2 %; NEUT ABS # 1.83 K/uL (1.4-6.5); PLATELET COUNT 123 K/uL (130-400); RED CELL DISTRIBUTION WIDTH CV 13.9 % (11.5-14.5); RED CELL DISTRIBUTION WIDTH SD 47.4 fL (36.4-46.3); WHITE BLOOD COUNT 3.87 K/uL (4.8-10.8)
[2017-08-08 06:05] LABS: INR 2.2 (0.9-1.1)
[2017-08-08 06:22] LABS: CALCIUM 8.6 mg/dl (8.5-10.1); CREATININE 1.22 mg/dl (0.60-1.40); POTASSIUM 3.7 mmol/L (3.5-5.1)
[2017-08-08 06:42] VITALS: BP 114/72; PULSE 61; TEMP 36.6; O2SAT 99
[2017-08-08] MEDS: ENOXAPARIN 120 MG/0.8 ML SYR SQ SCH (07:58)
[2017-08-08] MEDS: TOPIRAMATE 100 MG TAB PO SCH (07:58)
[2017-08-08 08:03] LABS: HEMOGLOBIN A1C 5.2 % (4.5-5.6)
--- NOTE | 2017-08-08 09:46 | Neurology Consultation ---
Neurology Consultation Date of Consultation: August 08, 2017. Attending Physician: Reji Greco MD Primary Care Physician: Divya Gilbert DO Reason for Consultation: Patient is a 51-year-old, was asked to see the request of Dr. Greco, for neurologic consultation regarding new onset numbness with history of stroke and epilepsy. History of Present Illness Source: patient, family, caregiver, clinic records, hospital records Patient has a very long and complicated neurologic history. Most all information is gathered from patient's who is at bedside and some more recently from [facility] outpatient chart. Apparently he had some headaches in his 20s but they were very intermittent in nonspecific, controlled with qhqj-[id number] medicine and not associated with nausea, vomiting, photophobia, or sonophobia. In 1997 he had the onset of severe headache, left lower extremity pain and weakness, and a significant generalized seizure. Apparently he was weak on the left side, head confusion and personality changes, and had more than 1 seizure. He apparently was initially seen a [facility] [place], and then he was seen at [facility] in [place] in finally went to [facility] (a 2nd opinion by the family). Although I do not have any records, the conclusion was that of a stroke, possibly frontal as his EEG had a frontal lobe origin. 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 Initially he was tried on phenobarbital. Depakote gave him side effects and Keppra was of no help. He eventually, by 2004, was settled on Lamictal and topiramate. He has been followed closely by Dr. Nixon, in [facility]. He has not had any overt seizures since 2004 since he has been on the combination of Lamictal and topiramate. He has been on the same doses as per admission for many years. In June of this year, a Lamictal level was 5.7 and a topiramate level was 13.2. A recent EEG apparently showed a "slight abnormality" according to a recent note from Dr. Nixon, but I have no further specific details. He has been doing very well over the years on the regimen of Topamax 200 mg 3 times a day and Lamictal 200 mg 3 times a day and anticoagulation keeping his INR somewhere between 3 and 4. He will have a rare headache, once every 2 weeks to every 2 months of a nonspecific nature. It is sharp, in the right gnosticism area, and responses to Excedrin migraine. There are no other features such as nausea, vomiting, photophobia, or sonophobia. Patient , cognitively, has not been the same since his stroke in 1997. He has had neuropsychological testing over the years and is felt to have chronic cognitive and personality changes. He is more blank in distant with less motivation. In 2012, and then again in 2013, he had 2 separate episodes of headache, right- sided numbness, and some confusion. Each time he was evaluated there were no new strokes. His then took him to the [facility] in [facility] sometime in 2014. He has been many days they are getting a number of tests. Although I do not have any records, the patient's believes that the [facility] physicians thought the spells were TIAs and not complicated migraines. Apparently, physicians at the [facility] agreed that his INR should be between 3 and 4. In May of 2017 patient presented with a right thigh hematoma requiring surgical evacuation. INR that time was 5.1. Since that time, his INR has been kept much lower, despite the misgivings of his . On the evening of August 06 he was a little more distant in his personality and took him longer to process than usual. When he woke up at 0630 hours on August 07 , he had this same affect. His went to work but called him around 10 o' clock in the morning. At that time she noted halted speech and difficulty with word finding. He does remember this. His right arm and leg had a hot sensation in his right face was mildly numb. This was the lower half including the jawline and cheek but not the forehead. He had had a right-sided headache all day. He denied weakness, spine pain, vision problems, incontinence of urine. He had a little bit of shaking in his hands bilaterally and some vertiginous feelings with walking although his balance was otherwise unremarkable. Patient's came home around lunchtime at 1245 hours and found that the hot sensations in the right arm and leg had disappeared and the patient had numbness in the whole right arm and whole right leg as well as the face. He had the right temporal headache of a sharp nature without nausea, vomiting, photophobia, or sonophobia. He arrived to the emergency room at 1337 hours with a temperature 36.6, pulse 70 and regular, respiratory rate 22, blood pressure 130/94, and O2 saturation 100%. Clinically, he was described as having a normal mental status and subjective numbness in the right face, arm, and leg. There were no other neurologic deficits apparently. Patient's INR was 1.7. CT scan of the head was unremarkable. Carotid ultrasound was unremarkable. MRI of the brain showed no acute stroke and very mild old microvascular ischemic changes only. CBC had a white count of 3.87 and a platelet count of 122. Today, the INR is increased at 2.2. Chem profile and lipid profile were unremarkable. Urinalysis was unremarkable. This morning, the patient is markedly improved and has no headache and no numbness in the face arm or leg. He is not dizzy or shaky. Past Medical/Surgical History Medical Problems: (1) Hematoma of right thigh Status: Acute (2) Nephrolithiasis Status: Acute (3) Numbness of right lower extremity Status: Acute (4) Renal colic on right side Status: Acute (5) Right facial numbness Status: Acute (6) Right upper extremity numbness Status: Acute History of (possibly frontal) stroke 1997, resulting in epilepsy, cognitive impairment, and personality changes. 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 History of nonspecific headaches of an intermittent and mild nature. 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 Arthroscopic right knee repair in 1999. The left thumb and right ankle tendon repair May 2014 Right thigh hematoma evacuation May 2017 Family History Mother age 65 of a stroke. She had factor 5 also Patient knows nothing of his father's medical history Social History Patient has never been a tobacco user and does not use alcohol. 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 The on disability ever since. Smoking Status: Never smoker Smokeless Tobacco Use: No Alcohol Use: none Drug Use: none Marital Status: Housing Status: lives with family Occupation Status: disabled Allergies Coded Allergies: Penicillins (Verified Allergy, Severe, 08/07/17) HIVES Sulfa Antibiotics (Verified Allergy, Unknown, ., 08/07/17) Current Inpatient Medications Current Inpatient Medications Medications (Trade) Dose Ordered Sig/Thomas Route Start Time Stop Time Status Last Admin Dose Admin Miscellaneous Information (Pharmacist Discharge Med Rec Consult) 1 ea UD PRN N/A 08/07/17 17:30 09/06/17 17:29 Lamotrigine (Lamictal Tab) 200 mg TID PO 08/07/17 21:00 09/06/17 20:59 08/08/17 07:58 200 MG Topiramate (Topamax Tab) 200 mg TID PO 08/07/17 21:00 09/06/17 20:59 08/08/17 07:58 200 MG Warfarin Sodium (Coumadin Tab) 15 mg SuTuThSa@1600 PO 08/08/17 16:00 09/07/17 15:59 Acetaminophen (Tylenol Tab) 650 mg Q4H PRN PO 08/07/17 17:45 09/06/17 17:44 Al Hydrox/Mg Hydrox/Simethicone (Maalox Max Susp) 15 ml Q4H PRN PO 08/07/17 17:45 09/06/17 17:44 Magnesium Hydroxide (Milk Of Magnesia Susp) 30 ml Q12H PRN PO 08/07/17 17:45 09/06/17 17:44 Ondansetron HCl (Zofran Inj) 4 mg Q6H PRN IV 08/07/17 17:45 09/06/17 17:44 Nitroglycerin (Nitrostat Tab) 0.4 mg UD PRN SL 08/07/17 17:45 09/06/17 17:44 Morphine Sulfate (MoRPHine SULFATE INJ) 2 mg Q30M PRN IV 08/07/17 17:45 08/21/17 17:44 Polyethylene (Miralax Powder Packet) 17 gm DAILY PRN PO 08/07/17 17:45 09/06/17 17:44 Enoxaparin Sodium (Lovenox Inj) 111 mg Q12@0800,2000 SQ 08/07/17 20:00 09/06/17 19:59 08/08/17 07:58 111 MG Miscellaneous (Iv Fluids Completed) 1 ea PRN PRN N/A 08/07/17 20:00 08/07/18 19:59 Warfarin Sodium (Coumadin Tab) 14 mg MoWeFr@1600 PO 08/10/17 16:00 09/09/17 15:59 Gadobutrol (Gadavist) 10.5 mmol UD PRN IV 08/07/17 21:00 08/11/17 20:59 Review of Systems Constitutional: No weakness, No fatigue Eyes: No worsening of vision, No diplopia ENT: No sore throat, No trouble swallowing Respiratory: No cough, No shortness of breath Cardiovascular: No chest pain Abdomen: No pain, No nausea Musculoskeletal: No joint pain, No muscle pain Genitourinary - Male: No dysuria, No urinary incontinence Neurologic: + memory loss, No weakness, No numbness/tingling, No vertigo, No balance problems Psychiatric: No depression symptoms, No anxiety Endocrine: No fatigue Hematologic / Lymphatic: No abnormal bleeding/bruising Integumentary: No rash Allergic / Immunologic: No hives Physical Exam Vital Signs (Past 24 Hrs): Date Time Temp Pulse Resp B/P (MAP) Pulse Ox O2 Delivery O2 Flow Rate FiO2 08/08/17 06:42 36.6 61 19 114/72 (86) 99 Room Air 08/08/17 04:00 99 Room Air 08/08/17 03:43 36.6 67 19 116/73 (87) 99 Room Air 08/08/17 00:00 92 Room Air 08/07/17 23:00 36.8 50 19 145/82 (103) 92 Room Air 08/07/17 19:06 36.6 59 18 133/89 100 Room Air 08/07/17 18:48 63 17 123/87 98 Room Air 08/07/17 17:40 62 18 08/07/17 17:10 60 17 100 08/07/17 17:00 126/88 08/07/17 16:40 65 17 100 08/07/17 16:35 64 23 100 08/07/17 16:05 67 20 100 08/07/17 16:00 120/83 08/07/17 15:35 62 15 100 08/07/17 15:34 97 Room Air 08/07/17 15:30 63 16 100 Room Air 08/07/17 15:28 115/83 08/07/17 14:30 65 20 100 Room Air 08/07/17 14:00 68 15 08/07/17 13:53 72 08/07/17 13:37 36.6 70 22 130/84 100 Room Air Patient is right-handed. The patient is awake and alert. Speech is normal without aphasia or dysarthria. Mentation and thought processes are slow somewhat in response but fairly accurate. He is fully oriented to person place and time. He does month, the day, the year, the president and can do calculations and knows left from right. He does have some long and short-term memory problems and defers to his for details. The discs are sharp with positive venous pulsations. There are no exudates, hemorrhages, or blood vessel changes seen. Pupils are 4mm bilaterally and reactive to light. Extraocular eye muscles are intact without nystagmus. Visual acuity and visual amor seem normal grossly to confrontation. There are no deficits to sensation of the face bilaterally. Corneal reflexes are positive bilaterally. Facial strength and symmetry is normal bilaterally. Hearing seems intact grossly to voice and finger rub. Palate moves well without asymmetry. There is normal sternocleidomastoid and trapezius strength bilaterally. Tongue is midline with good strength bilaterally. Neck is with full range of motion without discomfort. There are no cervical bruits. There are no cranial or ocular bruits. Heart is without murmur. Cervical, thoracic, and lumbar spine are nontender to palpation. Gait is normal. There is good arm swing, turn, stance, and balance. With outstretched arms there is no drift. There are no resting, postural, or action tremors. There is no ataxia with lessol-ew-wjry testing. There is good facility in the hands. There are no abnormal involuntary movements noted. Motor strength is 5/5 diffusely in the arms bilaterally including deltoids, biceps, brachioradialis, wrist flexors and extensors, applied statistician, and intrinsic hand muscles. Motor strength is 5/5 diffusely in the legs bilaterally including hip flexors, quadriceps, hamstring, gastrocnemius, tibialis anterior, tibialis posterior, and peroneii muscles bilaterally. Toe extensors are normal and there is good bulk in the extensor digitorum brevis muscle bilaterally. The limbs have good tone without rigidity or spasticity, and there is no atrophy noted. Muscle bulk is normal, there is no tenderness, no myotonia noted to percussion, and no fasciculations seen. Sensory examination is intact to pin and touch throughout all four limbs. Reflexes are 1/4 in the biceps, triceps, brachioradialis, quadriceps, and Achilles tendons bilaterally. Toes are downgoing with plantar stimulation bilaterally. Peripheral pulses are present and of normal quality distally in all four limbs. There is no peripheral edema noted. Laboratory Results Past 24 Hours: 08/08/17 05:28 Red Blood Count 4.69, Mean Corpuscular Volume 93.4, Mean Corpuscular Hemoglobin 30.7, Mean Corpuscular Hemoglobin Concent 32.9, Mean Platelet Volume 10.2, Neutrophils (%) (Auto) 47.2, Lymphocytes (%) (Auto) 40.3, Monocytes (%) (Auto) 10.6, Eosinophils (%) (Auto) 1.3, Basophils (%) (Auto) 0.3, Neutrophils # (Auto ) 1.83, Lymphocytes # (Auto) 1.56, Monocytes # (Auto) 0.41, Eosinophils # (Auto ) 0.05, Basophils # (Auto) 0.01 08/08/17 05:28 Test 08/07/17 13:55 08/07/17 13:58 08/07/17 14:01 08/07/17 17:28 Activated Partial Thromboplast Time 38.8 SECONDS (21.0-31.0) Partial Thromboplastin Ratio 1.5 Total Bilirubin 0.3 mg/dl (0.2-1) Aspartate Amino Transf (AST/SGOT) 23 U/L (15-37) Alanine Aminotransferase (ALT/SGPT) 41 U/L (12-78) Alkaline Phosphatase 91 U/L (45-117) Total Protein 7.7 gm/dl (6.4-8.2) Albumin 4.0 gm/dl (3.4-5.0) Globulin 3.7 gm/dl (2.5-4.0) Albumin/Globulin Ratio 1.1 (0.9-2) Bedside Glucose 77 mg/dl (70-99) Estimated Average Glucose 103 mg/dl Hemoglobin A1c 5.2 % (4.5-5.6) Urine Color YELLOW Urine Appearance CLEAR (CLEAR) Urine pH 6.5 (4.5-7.5) Urine Specific [place] 1.010 (1.000-1.030) Urine Protein NEG (NEG) Urine Glucose (UA) NEG (NEG) Urine Ketones NEG (NEG) Urine Occult Blood NEG (NEG) Urine Nitrite NEG (NEG) Urine Bilirubin NEG (NEG) Urine Urobilinogen NEG (NEG) Urine Leukocyte Esterase NEG (NEG) Urine RBC 0-4 /hpf (0-4) Urine WBC 0 /hpf (0-5) Urine Epithelial Cells 0-5 /lpf (0-5) Urine Bacteria NEG (NEG) Test 08/08/17 01:22 08/08/17 05:28 08/08/17 07:40 Creatine Kinase MB 2.5 ng/ml (0.5-3.6) Creatine Kinase MB Ratio (0-3.0) Troponin I < 0.015 ng/ml (0-0.045) White Blood Count 3.87 K/uL (4.8-10.8) Red Blood Count 4.69 M/uL (4.7-6.1) Hemoglobin 14.4 g/dL (14.0-18.0) Hematocrit 43.8 % (42-52) Mean Corpuscular Volume 93.4 fL (80-100) Mean Corpuscular Hemoglobin 30.7 pg (25-34) Mean Corpuscular Hemoglobin Concent 32.9 g/dl (32-36) Platelet Count 123 K/uL (130-400) Mean Platelet Volume 10.2 fL (7.4-10.4) Neutrophils (%) (Auto) 47.2 % Lymphocytes (%) (Auto) 40.3 % Monocytes (%) (Auto) 10.6 % Eosinophils (%) (Auto) 1.3 % Basophils (%) (Auto) 0.3 % Neutrophils # (Auto) 1.83 K/uL (1.4-6.5) Lymphocytes # (Auto) 1.56 K/uL (1.2-3.4) Monocytes # (Auto) 0.41 K/uL (0.11-0.59) Eosinophils # (Auto) 0.05 K/uL (0-0.5) Basophils # (Auto) 0.01 K/uL (0-0.2) RDW Standard Deviation 47.4 fL (36.4-46.3) RDW Coefficient of Variation 13.9 % (11.5-14.5) Immature Granulocyte % (Auto) 0.3 % Immature Granulocyte # (Auto) 0.01 K/uL (0.00-0.02) Prothrombin Time 22.7 SECONDS (9.0-12.0) Prothromb Time International Ratio 2.2 (0.9-1.1) Anion Gap 3.0 mmol/L (3-11) Est Creatinine Clear Calc Drug Dose 95.4 ml/min Estimated GFR () 80.2 Estimated GFR (Non- 69.2 BUN/Creatinine Ratio 14.5 (10-20) Calcium Level 8.6 mg/dl (8.5-10.1) Triglycerides Level 121 mg/dl (0-150) Cholesterol Level 179 mg/dl (0-200) HDL Cholesterol 46 mg/dl LDL Cholesterol, Calculated 109 mg/dl VLDL Cholesterol, Calculated 24 mg/dl Cholesterol/HDL Ratio 3.9 Imaging BRAIN COMBO HISTORY: 51 years-old Male Stroke acute strokelike symptoms with headache and blurred vision COMPARISON: None available TECHNIQUE: Multiplanar multisequence MRI of the brain was obtained both with and without the use of 10.5 mL Gadavist FINDINGS: Large dibie-ga-hzpt pollution control engineer localizer images demonstrate no gross abnormality. There is no restricted diffusion to suggest acute or subacute infarction. The midline structures including the corpus callosum, brainstem, optic chiasm, pituitary and pineal glands are unremarkable on the sagittal T1 series. There is no cerebellar tonsillar herniation. There is no acute intracranial hemorrhage, midline shift, abnormal extra-axial collections, hydrocephalus or intracranial mass. Mild degree of patchy punctate foci of T2/FLAIR prolongation within the subcortical white matter of the cerebral hemispheres bilaterally. The major flow voids at the level of the skull base appear unremarkable. Mastoid air cells are clear. Mild mucosal thickening of the maxillary and ethmoid sinuses. Scalp, orbits and skull are within normal limits. There is no abnormal intra-axial or extra-axial enhancement identified. IMPRESSION: 1. No acute intracranial abnormality or abnormal enhancement identified. 2. Indeterminate mild degree of patchy punctate foci of T2/FLAIR prolongation within the subcortical white matter of the cerebral hemispheres bilaterally, possibly reflecting early chronic microvascular ischemic changes or sequela of chronic migraines among other etiologies. 3. Mild paranasal sinus disease. The above report was generated using voice recognition software. It may contain grammatical, syntax or spelling errors. Electronically signed by: Dayron Leon M.D. 08/08/2017 12:02 AM Impression 1. Acute episode headache, right-sided numbness and other nonspecific symptoms May 4th, as described above, now resolved. I suspect vasospasm/complicated migraine, although I cannot exclude a true TIA. He has had similar episodes in the past which tends to have me lean toward a "complicated" migraine origin. However, the previous episodes have been associated with low INRs and he tends to get this way, according to his , with an INR much less than 3. Currently he has no focal neurologic findings, meningeal signs or acute encephalopathy. Does have an underlying dementia. 2. Chronic cognitive impairment/dementia, from previous stroke 1997 I do not have any specific details regarding his evaluation at multiple medical centers over time. This problem is chronic and stable. 3. Epilepsy secondary to previous stroke 1997 This is presumably well controlled on the current doses of topiramate and lamotrigine 4. Old stroke 1987, presumably frontal, with very mild nonspecific, tiny, old small vascular ischemic disease seen on MRI 5. Factor 5 [place], with history of DVT on chronic anticoagulation. The patient is feel that he is most optimally controlled with an INR between 3 and 4. 6. Headaches He has a history of relatively moderate, very intermittent nonspecific headaches. They are controlled with kmbc-[id number] medication His headache from yesterday has resolved. Plan 1. I see no indication for additional neurologic testing or treatment at this time. 2. Continue topiramate and Lamictal at the current doses. 3. The patient follows with Dr. Nixon in [place] and should make an appointment with him after discharge for follow-up. 4. Recommend keeping INR at or slightly above 3. I spoke with Dr. Greco regarding this case including differential diagnosis and treatment options. Overall I spent a total of 120 minutes with this case including records review, evaluation the patient at bedside, and discussion of the case with the patient and his at bedside as well as his clinicians.
--- NOTE | 2017-08-08 10:51 | PROGRESS NOTE ---
DATE: 08/08/2017 HISTORY OF PRESENT ILLNESS: Mr. 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 At the present time, his neurologic symptoms have completely resolved, and the patient is feeling back to his usual self. He has not had any confusion, cloud thinking, visual disturbance, blind spots, black spots, visual field changes, nor has he had any slurred speech at any time. His MRI of the brain showed patchy punctate foci in the subcortical white matter, which could represent some small vessel chronic ischemic disease. Carotid ultrasound showed normal blood flow in bilateral carotid arteries, bilateral vertebral arteries, and no evidence of plaques. CT scan of the head on admission showed no acute processes. The patient's INR on admission was 1.7. The patient had previously been followed by a in process inspector at [facility] who treated him for his hypercoagulable state. Because the patient was having breakthrough embolic events, the goal INR set for him was 3.0-4.0. Unfortunately, the patient had a bleeding complication in May of 2017 developing a right thigh hematoma. At that point, somebody changed his target/goal INR from 3.0-4.0 down to 1.5-2.5. We will adjust his goal INR back up to 3.0-4.0 because the preponderance of his various events have been thrombotic or embolic in nature. The patient offers no other complaints. He feels like he is at his baseline. Good appetite, eating his meals. He denies any chest pain, heaviness, tightness, or pressure. No shortness of breath. No nausea or vomiting. No melena or hematochezia. No abdominal pain. MEDICATIONS: 1. Warfarin 14 mg Thursday, Thursday, and Thursday; 15 mg on Thursday, Thursday, , and Thursday. 2. Lamotrigine 200 mg t.i.d. 3. Topamax 200 mg t.i.d. 4. Lovenox 111 mg subcutaneous injection b.i.d. 5. Tylenol p.r.n. 6. Maalox Max p.r.n. 7. Milk of magnesia suspension. 8. Zofran p.r.n. 9. Sublingual nitroglycerin as needed. 10. Morphine sulfate 2 mg IV q. 30 minutes p.r.n. for chest pain. 11. MiraLax powder 17 grams daily as needed for constipation. ALLERGIES: 1. PENICILLIN. 2. SULFA ANTIBIOTICS. PHYSICAL EXAMINATION: VITAL SIGNS: Temperature is 36.6 degrees Celsius, pulse 60 and regular, respiratory rate is 14 and unlabored, blood pressure is 114/72, SpO2 is 99% on room air. GENERAL: The patient is in no acute distress. HEENT: Head is atraumatic, normocephalic. EOMs intact. Sclerae are anicteric. Face is symmetric. No facial droop. No perioral cyanosis. Mucous membranes moist. Tongue protrudes in the midline. Uvula arises at midline on phonation. NECK: Without thyromegaly, adenopathy or JVD. Carotid upstrokes +2 bilaterally without bruits. CHEST AND LUNGS: Clear to auscultation throughout all lung amor, no wheezes, rales or rhonchi. CARDIOVASCULAR: S1 and S2 are regular without murmur, gallop or rub. PMI is nondisplaced. No lifts, heaves, or thrills. No abdominal, aortic or renal bruits. ABDOMEN: Bowel sounds present. EXTREMITIES: Without clubbing, cyanosis or edema. Intact radial and dorsalis pedis pulses bilaterally. NEUROLOGIC: The patient is awake, alert and oriented. Pleasant and cooperative. Answers questions appropriately. Speech is clear. Normal movement in all 4 extremities. Sensation intact to light touch over bilateral upper and lower extremities. He appears to have normal muscle strength in major muscle groups of the upper and lower extremities bilaterally and it is symmetric. Telemetry monitoring shows normal sinus rhythm to sinus bradycardia. Rare PVCs. MRI of the brain 08/07/2017 shows no acute intracranial abnormality, indeterminate mild degree of patchy punctate foci of T2/flair prolongation within the subcortical white matter of the cerebral hemispheres bilaterally, possibly reflecting early chronic microvascular ischemic changes versus sequela of chronic migraines versus other. LABORATORIES: White blood cell count is 3.87, hemoglobin 14.4, hematocrit 43.8, platelet count 123,000. INR is currently 2.2. Sodium is 141 mmol/L, potassium is 3.7 mmol/L. BUN is 18 mg/dL, creatinine 1.22 mg/dL. Random glucose 93 mg/dL. Cardiac enzymes are negative. Total cholesterol is 179 with an HDL of 46 mg/dL and an LDL of 109 mg/dL. ASSESSMENT: 1. 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 2. Factor V Leiden mutation with hypercoagulability - recommend making his target INR 3.0-4.0. 3. Chronic left lower extremity DVT. 4. History of CVA in 2013. 5. Seizure disorder secondary to prior accident. PLAN: 1. We are awaiting a neurology consultation regarding further recommendations. 2. Strongly recommend changing target INR to 3.0-4.0 as the great majority of his prior events have been embolic or thrombotic in nature. He had 1 bleeding complication (thigh hematoma 05/2017) related to anticoagulation therapy. 3. Continue Lovenox 100 mg subcutaneous injection b.i.d. for the time being. 4. Continue Lamictal and Topamax as directed. 5. If neurology feels he is stable for discharge, there is a possibility he could be discharged to home later today. 6. The patient should get established with a local in process inspector at some point as well. He was previously followed by in process inspector at [facility] who has since retired. Attending Attestation - Pt seen/examined, chart reviewed, care plan d/w MOIRA Morales. I agree w/ the ocasio components of his progress note. Please see my discharge summary for my discharge exam and plan of care. Reji Greco MD [facility]
[2017-08-08 11:30] VITALS: BP 124/80; PULSE 61; TEMP 36.6; O2SAT 99
[2017-08-08] MEDS ORDERED: WARF10TA4 PO (12:12)
[2017-08-08] MEDS ORDERED: LPT40 PO (12:12)
[2017-08-08] MEDS ORDERED: LVNIS100 SQ (12:12)
[2017-08-08 12:15] VITALS: BP 124/80; PULSE 61; TEMP 36.6; O2SAT 99
--- NOTE | 2017-08-08 12:23 | Discharge Instructions ---
Discharge Instructions Date of Service August 08, 2017. Admission Reason for Admission: Symptoms Of Cerebrovascular Accident Discharge Discharge Diagnosis / Problem: "TIA" (transient ischemic attack); no evidence of stroke on MRI Discharge Goals Goal(s): Learn about illness, Diagnostic testing, Therapeutic intervention Activity Recommendations Activity Limitations: resume your previous activity (as tolerated) . Instructions / Follow-Up Instructions / Follow-Up From Dr. Greco: It is felt that your numbness on the right side of your body was a TIA. This is a temporary neurological symptom that resolves on its own. A TIA and stroke are not the same thing but TIA is a known risk factor for future stroke. Your MRI brain was negative for stroke. The other possibility was that this was a "complicated migraine headache" (a headache that caused neurological symptoms). This is felt less likely. 1. Risk Factors for Stroke and TIA (transient ischemic attack): You can reduce your chances of stroke by working with your medical provider to adopt a healthy lifestyle. Some specific ways to lower your chance of stroke are: * If you are a smoker, now is the time to stop smoking cigarettes * If you are diabetic, improve the control of your blood sugars * Avoid excessive amounts of alcohol * Control high blood pressure * Lose weight if you are overweight * Be sure to lead an active lifestyle * Eat a healthy diet low in salt, cholesterol and fat You should know about other risk factors for stroke that you are unable to control. These include: * Age 55 years or older * Male gender * Certain racial groups: , or / * Family History of Stroke, Mini stroke or Heart Attack * Sickle Cell Disease 2. Cholesterol - * at this time we are recommending a medication for cholesterol per guidelines that pertain to TIA and stroke * please start lipitor (atorvastatin) 40mg once daily at bedtime; prescription sent to [facility] for you * biggest side effect from lipitor are muscle cramps; if you experience this please let Dr. Gilbert know 3. Coumadin / INR - * your INR today was 2.2 * it was 1.7 on 08/07/17 * at this time please increase your coumadin to 15mg daily every day (please stop the 14mg tablets) * please have your INR level checked on Thursday or Thursday of this coming week by Dr. Gilbert * while waiting for your INR to reach about a level of 3 please continue on lovenox injections * recommend 100mg twice a day starting this evening about 8pm * a prescription for the 100mg syringe has been provided for you if you have run out of the 100mg dose * once your INR is about 3 you can discontinue the lovenox * I would recommend you continue the weekly INR checks as you have been doing especially since we are changing the dose 4. Follow-up - * INR check on Thursday or Thursday of this coming week * See Dr. Gilbert within 5 days 5. Return to [facility] if - * you have recurrent numbness, tingling, weakness, speech difficulty, swallowing difficulty, or any new neurological symptom(s) * you have fever over 100.4 degrees * you experience bleeding from any location * any other concern Current Hospital Diet Patient's current hospital diet: AHA Diet (Heart Healthy) Discharge Diet Recommended Diet: AHA Diet (Heart Healthy) Procedures Procedures Performed: MRI brain with no evidence of stroke. Carotid doppler/ultrasound with normal carotid arteries in the neck. Echocardiogram. Telemetry - normal. Pending Studies Studies pending at discharge: no Laboratory Results Hemoglobin A1c Test 08/07/17 14:01 Range/Units Estimated Average Glucose 103 mg/dl Hemoglobin A1c 5.2 4.5-5.6 % Lipid Panel Test 08/08/17 05:28 Range/Units Triglycerides Level 121 0-150 mg/dl Cholesterol Level 179 0-200 mg/dl HDL Cholesterol 46 mg/dl Cholesterol/HDL Ratio 3.9 LDL Cholesterol, Calculated 109 mg/dl Medical Emergencies . Who to Call and When: Medical Emergencies: Call 911 immediately if you experience any of the following warning signs and symptoms of Stroke: * Sudden numbness or weakness of the face, arm or leg, especially on one side of the body * Sudden confusion, trouble speaking or understanding * Sudden trouble seeing in one or both eyes * Sudden trouble walking, dizziness, loss of balance or coordination * Sudden severe headache with no cause Do not delay calling 911 if you experience any warning signs or symptoms of a stroke. Delay in seeking medical attention may affect what treatments can be given to you. . Non-Emergent Contact Non-Emergency issues call your: Primary Care Provider Call Non-Emergent contact if: temperature is above 100.5, you have any medication questions . . "Provider Documentation" section prepared by Reji Greco. . Stroke Core Measures Reason no t-PA for Stroke: Treatment not indicated Reason no antithrom by day 2: Treatment not indicated Reason no antithrom at D/C: Treatment not indicated Reason no statin at D/C: Treatment provided - N/A Reason no anticoag w/a fib: Treatment not indicated
--- NOTE | 2017-08-08 13:31 | ECHOCARDIOGRAM REPORT ---
*NOTICE TO RECEIVING CONSTITUTION PARTY AGENCY This information is strictly Confidential and protected under [place] law. [place] law prohibits you from making any further disclosure of this information unless further disclosure is expressly permitted by the written consent of the person to whom it pertains or is authorized by law. A general authorization for the release of medical or other information is not sufficient for this purpose. Hospital accepts no responsibility if the information is made available to any other person, INCLUDING THE PATIENT. Interpretation Summary * Name: VENTURA CARPIO JR Study Date: 08/08/2017 09:36 AM BP: 116/73 mmHg * Patient Location: C.2T\S\S230\S\2 HR: 66 * : 1965 (M/d/yyyy) Gender: Male Height: 75 in * Age: 51 yrs Ethnicity: CA Weight: 238 lb * Ordering Physician: Kayla Soto * Referring Physician: Self, Referred * Performed By: Kirstin Warren RCS * * Reason For Study: STROKE * BSA: 2.4 m2 * -- Conclusions -- * Left ventricular systolic function is normal. * No regional wall motion abnormalities noted. * Ejection Fraction = 60-65%. * There is mild mitral regurgitation. * Injection of contrast documented no interatrial shunt. Procedure Details * A complete two-dimensional transthoracic echocardiogram was performed (2D, M-mode, Doppler and color flow Doppler). * A saline contrast injection was performed to assess for cardiac shunting. * The injection was performed through an intravenous line in the right arm. * The attending nurse who injected the saline contrast was DERREK RAJPUT, TIFFANY. * A total of 20 cc of agitated saline was given. Left Ventricle * The left ventricle is normal in size. * There is normal left ventricular wall thickness. * Left ventricular systolic function is normal. * Ejection Fraction = 60-65%. * No regional wall motion abnormalities noted. Right Ventricle * The right ventricle is normal size. * The right ventricular systolic function is normal as assessed by tricuspid annular plane systolic excursion (TAPSE) (normal >1.5 cm). Atria * The left atrium is mildly dilated. * Right atrial size is normal. * Injection of contrast documented no interatrial shunt. Mitral Valve * The mitral valve anatomy is normal. * There is no mitral valve stenosis. * There is mild mitral regurgitation. Tricuspid Valve * The tricuspid valve anatomy is normal. * There is no tricuspid stenosis. * Significant tricuspid regurgitation is absent. Aortic Valve * The aortic valve is normal in structure and function. * Aortic stenosis is absent. * No aortic regurgitation is present. Pulmonic Valve * The pulmonary valve is not well seen, but the Doppler examination is normal without significant regurgitation or stenosis. Great Vessels * The aortic root is normal size. * The pulmonary artery is not well visualized, but is probably normal size. Pericardium/Pleural * There is no pericardial effusion. Great Vessels * Normal inferior vena cava size and collapsability with sniff indicates a normal right atrial pressure of 3 mmHg MMode 2D Measurements and Calculations IVSd 1.1 cm IVSs 1.5 cm LVIDd 4.2 cm LVIDs 3.0 cm LVPWd 1.1 cm LVPWs 1.4 cm IVS/LVPW 0.96 FS 29.3 % EDV(Teich) 79.7 ml ESV(Teich) 34.7 ml EF(Teich) 56.5 % EDV(cubed) 75.5 ml ESV(cubed) 26.7 ml EF(cubed) 64.6 % % IVS thick 42.1 % % LVPW thick 26.1 % LV mass(C)d 158.1 grams LV mass(C)dI 66.9 grams/m\S\2 LV mass(C)s 151.8 grams LV mass(C)sI 64.3 grams/m\S\2 SV(Teich) 45.0 ml SI(Teich) 19.1 ml/m\S\2 SV(cubed) 48.8 ml SI(cubed) 20.6 ml/m\S\2 Ao root diam 3.7 cm Ao root area 10.7 cm\S\2 ACS 1.5 cm LA dimension 4.1 cm LA/Ao 1.1 LVOT diam 2.1 cm LVOT area 3.4 cm\S\2 LVAd ap4 38.1 cm\S\2 LVLd ap4 8.5 cm EDV(MOD-sp4) 138.4 ml EDV(sp4-el) 145.6 ml LVAs ap4 25.3 cm\S\2 LVLs ap4 7.1 cm ESV(MOD-sp4) 74.3 ml ESV(sp4-el) 77.0 ml EF(MOD-sp4) 46.3 % EF(sp4-el) 47.1 % LVAd ap2 32.0 cm\S\2 LVLd ap2 8.4 cm EDV(MOD-sp2) 100.6 ml EDV(sp2-el) 103.9 ml LVAs ap2 21.4 cm\S\2 LVLs ap2 7.6 cm ESV(MOD-sp2) 49.3 ml ESV(sp2-el) 51.1 ml EF(MOD-sp2) 51.0 % EF(sp2-el) 50.8 % LVLd %diff -0.92 % EDV(MOD-bp) 116.8 ml LVLs %diff 7.6 % ESV(MOD-bp) 63.6 ml EF(MOD-bp) 45.6 % SV(MOD-sp4) 64.1 ml SI(MOD-sp4) 27.1 ml/m\S\2 SV(MOD-sp2) 51.3 ml SI(MOD-sp2) 21.7 ml/m\S\2 SV(MOD-bp) 53.3 ml SI(MOD-bp) 22.5 ml/m\S\2 SV(sp4-el) 68.6 ml SI(sp4-el) 29.0 ml/m\S\2 SV(sp2-el) 52.9 ml SI(sp2-el) 22.4 ml/m\S\2 Doppler Measurements and Calculations MV E max faith 65.8 cm/sec MV A max faith 43.7 cm/sec MV E/A 1.5 MV P1/2t max faith 78.5 cm/sec MV P1/2t 99.6 msec MVA(P1/2t) 2.2 cm\S\2 MV dec slope 231.0 cm/sec\S\2 MV dec time 0.21 sec Ao V2 max 119.9 cm/sec Ao max PG 5.8 mmHg Ao max PG (full) 1.1 mmHg GARRISON(V,A) 3.0 cm\S\2 GARRISON(V,D) 3.0 cm\S\2 LV V1 max PG 4.6 mmHg LV V1 max 107.3 cm/sec PA V2 max 96.6 cm/sec PA max PG 3.7 mmHg PI max faith 146.7 cm/sec PI max PG 8.6 mmHg PI dec slope 131.5 cm/sec\S\2 PI P1/2t 326.6 msec TR max faith 228.2 cm/sec
[2017-08-08] MEDS ORDERED: WARFARIN SOD 6 MG TAB PO SCH (16:00)
[2017-08-08] MEDS ORDERED: WARFARIN SOD 5 MG TAB PO SCH (16:00)
[2017-08-10] MEDS ORDERED: WARFARIN PO SCH ×2 (16:00)
--- NOTE | 2017-08-12 08:58 | Discharge Summary ---
Discharge Summary Date of Service August 12, 2017. Discharge Summary Admission Date: August 07, 2017 at 17:37 Discharge Date: August 08, 2017 Discharge Disposition: Home Principal Diagnosis: possible TIA Problems/Secondary Diagnoses: 1. history of prior stroke 2. seizure disorder 3. vascular dementia/cognitive impairment 4. factor V Leiden Mutation 5. history of LLE DVT 6. mild hyperlipidemia 7. encephalopathy - resolved 8. question of complicated migraines Immunizations: Have You Had Influenza Vaccine: No History of Tetanus Vaccine?: Yes History of Pneumococcal: Unknown History of Hepatitis B Vaccine: No Procedures: 1. echocardiogram: * -- Conclusions -- * Left ventricular systolic function is normal. * No regional wall motion abnormalities noted. * Ejection Fraction = 60-65%. * There is mild mitral regurgitation. * Injection of contrast documented no interatrial shunt. 2. MRI abida: IMPRESSION: 1. No acute intracranial abnormality or abnormal enhancement identified. 2. Indeterminate mild degree of patchy punctate foci of T2/FLAIR prolongation within the subcortical white matter of the cerebral hemispheres bilaterally, possibly reflecting early chronic microvascular ischemic changes or sequela of chronic migraines among other etiologies. 3. Mild paranasal sinus disease. 3. CT head - no acute process. 4. Carotid duplex study negative for ICA stenosis. Consultations: neurology - Dani Pettit MD PT, OT, speech Medication Reconciliation New Medications: Atorvastatin (Lipitor) 40 Mg Tab 40 MG PO HS, #30 TBS 5 Refills Changed Medications: Warfarin Sod (Jantoven) 10 Mg Tab 15 MG PO DAILY, #45 TAB 1 Refill (Changed from: 4XWK; Refills: ; Removed Instructions) Continued Medications: Acetaminophen (Sb Non-Aspirin Extra Stre) 500 Mg Tab 1000 MG PO Q8 for 10 Days, #60 TAB Enoxaparin (Enoxaparin Sodium) 100 Mg/Ml Inj 100 MG SQ Q12 for 7 Days, #14 SYR 0 Refills (This prescription has been renewed) Lamotrigine (Lamictal) 200 Mg Tab 200 MG PO TID Topiramate (Topamax) 200 Mg Tab 200 MG PO TID Discontinued Medications: Warfarin Sod (Jantoven) 10 Mg Tab 14 MG PO 3XWK, TAB PT TAKES 14MG ON THURSDAY,THURSDAY,AND THURSDAY Discharge Exam Physical Exam: General Appearance: no apparent distress ENT: pharynx normal Neck: no JVD Respiratory/Chest: lungs clear, no respiratory distress, no accessory muscle use Cardiovascular: regular rate, rhythm, no gallop, no murmur, normal peripheral pulses Abdomen / GI: normal bowel sounds, non tender, soft, no organomegaly Extremities: + pedal edema (left leg, trace) Neurologic/Psychiatric: no motor/sensory deficits, alert, normal mood/affect , normal reflexes, + pertinent finding (no facial droop) Skin: no rash Hospital Course HISTORY OF PRESENT ILLNESS: Patient is a pleasant 51 y/o male, with PMHx of factor V Leiden deficiency, chronic LLE DVT, h/o CVA, and seizure disorder, who presented to the ED because of R-sided numbness/tingling, and periodic confusion. History came largely from as she states patient has mild cognitive dysfunction since first CVA. This morning patient started to complain RUE/RLE "hotness" which then turned into numbness/tingling. He also note R facial numbness/tingling. note episodes of confusion throughout the day. Per , his INR is to be between 3-4. Patient was previously admitted In May 2017 for R thigh hematoma requiring evacuation. At that time, hematology was consulted and recommended INR between 2 -3. prefers not to see hematology during this admission because "when his INR is lower than 3 he becomes symptomatic." +urinary frequency. Patient denies any fever, chills, sweats, lightheadedness, dizziness, vision changes, CP, palpitations, edema, SOB, wheezing, cough, abdominal pain, nausea, vomiting, diarrhea, melena, weakness, muscle/joint pain, anxiety/depression, active bleeding, or new skin discoloration/changes. HOSPITAL COURSE: The patient's presenting symptoms of numbness and mild confusion fully resolved quickly after admission. Work-up for his possible TIA including MRI brain, carotid duplex study, and echocardiogram were entirely normal. Telemetry was normal (i.e. no a. fib/flutter were seen). The patient was seen in consult by Dr. Dani Pettit, neurology, who felt that his symptoms were either due to a complicated migraine headache OR a TIA. His symptoms were not felt to be due to a recent seizure. If this was indeed a TIA his reported that he has had similar events when his INR had been subtherapeutic. Presenting INR was 1.7, improving to 2.2 on day of discharge. Due to concerns that the patient has historically done better with respect to TIA events at a higher therapeutic INR it was recommended that he bridge with lovenox until his INR reaches 3. For that reason I recommended he stay on lovenox 100mg SC BID until his INR approached 3. His coumadin dose was increased modestly to 15mg EVERY DAY (he had been taking alternating 15mg doses with 14mg doses). He was seen by PT, OT, and speech therapies all of whom agreed he was fit to return home. The patient and his were advised to follow-up with his coumadin provider within 3 days of discharge to discuss his ongoing coumadin management and INR goals. Lastly, the patient was initiated on statin therapy with lipitor 40mg once daily in light of the possible TIA event. Lipids were as follows - Hemoglobin A1c Test 08/07/17 14:01 Range/Units Estimated Average Glucose 103 mg/dl Hemoglobin A1c 5.2 4.5-5.6 % Lipid Panel Test 08/08/17 05:28 Range/Units Triglycerides Level 121 0-150 mg/dl Cholesterol Level 179 0-200 mg/dl HDL Cholesterol 46 mg/dl Cholesterol/HDL Ratio 3.9 LDL Cholesterol, Calculated 109 mg/dl Total Time Spent: Greater than 30 minutes This includes examination of the patient, discharge planning, medication reconciliation, and communication with other providers. Discharge Instructions Please refer to the electronic Patient Visit Report (Discharge Instructions) for additional information. Follow-Up 1. see Dr. Gilbert, PCP, within [address] Nixon in [place] within 2-3 weeks 3. INR check within 3-4 days Additional Copies To PEG NIXON MD; Divya Gilbert,
[2017-08-15 08:29] LABS: LAMICTAL (LAMOTRIGINE)**22060 10.4 mcg/mL (4.0-18.0)
== END 2017-08-08 13:35 | disposition home or self-care (01) ==
LOC: C.EDB 13:32 → C.2T 17:37 → EEVIPCON 17:37 → ENRESERV 17:48
PROVIDERS: ADMIT Hospitalist; ATTEND Internal Medicine
DX: R41.0 Disorientation, unspecified (principal); R20.0 Anesthesia of skin; D68.51 Activated protein C resistance; I69.398 Other sequelae of cerebral infarction; I69.318 Other symptoms and signs involving cognitive functions following cerebral infarction; G40.909 Epilepsy, unspecified, not intractable, without status epilepticus; E78.5 Hyperlipidemia, unspecified; I82.5Z1 Chronic embolism and thrombosis of unspecified deep veins of right distal lower extremity; Z88.0 Allergy status to penicillin; Z88.2 Allergy status to sulfonamides; Z82.3 Family history of stroke; Z79.899 Other long term (current) drug therapy; Z79.01 Long term (current) use of anticoagulants; Z86.718 Personal history of other venous thrombosis and embolism

== ENCOUNTER 2018-09-28 14:20 | Inpatient (IN) ==
[2018-09-28] MEDS ORDERED: LORazepam 2 MG/4 ML VIAL ONE (14:51)
[2018-09-28] MEDS ORDERED: LORazepam 2 MG/ML VIAL (IM USE) ONE (14:59)
[2018-09-28 15:03] LABS: Basophils # (auto) 0.01 K/uL (0-0.2); Basophils % (auto) 0.2 %; Hematocrit (blood only) 44.1 % (42-52); Hemoglobin 14.9 g/dL (14.0-18.0); Immature Granulocytes # (auto) 0.01 K/uL (0.00-0.02); Immature Granulocytes % (auto) 0.2 %; Lymphocytes # (auto) 0.45 K/uL (1.2-3.4); Lymphocytes % (auto) 7.8 %; Mean Corpuscular Hgb Conc 33.8 g/dL (32-36); Mean Corpuscular Volume 93.2 fL (80-100); Mean Platelet Volume 10.9 fL (7.4-10.4); Monocytes # (auto) 0.23 K/uL (0.11-0.59); Neutrophils # (auto) 5.04 K/uL (1.4-6.5); Neutrophils % (auto) 87.8 %; Platelet Count 122 K/uL (130-400); RDW Standard Deviation 48.1 fL (36.4-46.3); Red Blood Count 4.73 M/uL (4.7-6.1); White Blood Count 5.74 K/uL (4.8-10.8)
[2018-09-28 15:10] LABS: Alanine Aminotransferase 65 U/L (12-78); Albumin Level 3.7 gm/dl (3.4-5.0); Aspartate Aminotransferase 22 U/L (15-37); BUN Creatinine Ratio 12.8 (10-20); Blood Urea Nitrogen 18 mg/dl (7-18); Calcium 9.6 mg/dl (8.5-10.1); Carbon Dioxide 21 mmol/L (21-32); Chloride 113 mmol/L (98-107); Creatinine Clr Calc Pharmacy 80.2 ml/min; Est GFR (African American) 66.4; Est GFR (Non-African American) 57.3; Glucose 137 mg/dl (70-99); Magnesium 2.4 mg/dl (1.8-2.4); Potassium 4.4 mmol/L (3.5-5.1); Sodium 141 mmol/L (136-145)
[2018-09-28 15:15] LABS: Alkaline Phosphatase 107 U/L (45-117); Bilirubin,Total 0.2 mg/dl (0.2-1); Globulin 3.8 gm/dl (2.5-4.0); Total Protein 7.5 gm/dl (6.4-8.2); Troponin I < 0.015 ng/ml (0-0.045)
--- NOTE | 2018-09-28 15:17 | CT Scan Report ---
CT OF THE HEAD WITHOUT CONTRAST CLINICAL HISTORY: Confusion. COMPARISON STUDY: Head CT and MRI of the brain August 07, 2017. CT DOSE: 2469.35 mGy.cm TECHNIQUE: Helical axial images of the head were obtained without IV contrast. Automated exposure con trol was utilized for the study. A dose lowering technique was utilized adhering to the principles o f ALARA. FINDINGS: No acute intracranial hemorrhage, midline shift or mass effect is present. The ventricular system is unremarkable. The basilar cisterns are patent. No extra-axial collections are present. Ther e are no findings to suggest acute dural sinus thrombosis or acute territorial infarct. No significan t calvarial abnormalities are present. Visualized portions of the sinuses and mastoid air cells are c lear. IMPRESSION: No acute intracranial findings. Electronically signed by: James Tolliver M.D. 09/28/2018 3:15 PM
[2018-09-28 15:21] LABS: INR 3.1 (0.9-1.1); Partial Thromboplastin Ratio 1.7; Prothrombin Time 29.2 Seconds (9.0-12.0)
[2018-09-28] MEDS ORDERED: SODIUM CHLORIDE 0.9% 1000ML 250 ML IV ONE (15:29)
[2018-09-28 15:31] LABS: Partial Thromboplastin Time 47.3 Seconds (21.0-31.0)
[2018-09-28] MEDS ORDERED: OPTIRAY 320 125ml IV PRN (15:52)
--- NOTE | 2018-09-28 16:00 | CT Scan Report ---
CT angio head w con HISTORY: Mental status change left wekness/slurred speech eval for cva TECHNIQUE: Multiaxial CT angiography of the head was performed IV contrast: 1 cc Maximum intensity projection images were also obtained. A dose lowering technique was utilized adhering to the princi ples of [place]. COMPARISON: None. FINDINGS: There is no mass, hematoma, midline shift, or acute infarct. Visualized intracranial consultants intern al carotid arteries, distal vertebral arteries, and basilar artery are widely patent. 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 There are findings suggestive of a potential short segment dissection of the superior left vertebral artery from images 319 through 304. IMPRESSION: 1. No significant stenosis, occlusion, or aneurysm within the [place]. 2. 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 It may contain grammatical, syntax or spelling errors. Electronically signed by: Daren Hawk M.D. 09/28/2018 3:58 PM
--- NOTE | 2018-09-28 16:08 | CT Scan Report ---
CT ANGIOGRAPHY OF THE NECK WITH CONTRAST CLINICAL HISTORY: Left-sided weakness. Slurred speech. COMPARISON STUDY: Carotid ultrasound August 07, 2017. Technique: CT angiography of the carotid and vertebral arteries was obtained using [employer] 320 IV and 3D reconstruction on an independent workstation. NASCET criteria was utilized. Automated exposure c ontrol was utilized for the study. A dose lowering technique was utilized adhering to the principles of ALARA. CT DOSE: 1276.07 mGy.cm Findings: Please note that the CTA of the head will be reported separately. The bilateral common michele tid, cervical internal carotid and vertebral arteries are patent. There is no dissection or stenosis within these vessels. There is no significant atherosclerotic plaque. The right vertebral artery is d ominant. There is no cervical spine fracture. There is no prevertebral edema. No abscess or lymphaden opathy within the neck is noted. Lung apices are suboptimally assessed due to motion. IMPRESSION: Unremarkable CTA of the neck. No dissection or stenosis. Electronically signed by: James Tolliver M.D. 09/28/2018 4:06 PM
[2018-09-28] MEDS ORDERED: LORazepam 1 MG/2 ML VIAL IV STA (18:04)
--- NOTE | 2018-09-28 19:14 | History & Physical Report ---
Date of Service September 28, 2018 Assessment & Plan (1) Altered mental status: (2) History of CVA (cerebrovascular accident): (3) Seizure: This is a 53-year-old male who has a significant past medical history of known factor V Leiden and protein S deficiency, history of CVA in 1995, seizure d isorder as sequela of CVA with last seizure activity in 2004, cognitive deficits secondary to CVA, associated vascular dementia, HLD who presents to [facility] ED secondary to increased confusion. Pt with known factor V leiden def and Protein S def with hx of CVA in 1995 with neurocog deficits Presents today with increased confusion, witnessed tonic-clonic seizure activity by ED RN x 2-3 min, with possible postictal phase of fatigue, delayed response, difficulty following command INR 3.1 today - pt has been taking warfarin 70 mg daily along with bridging with Lovenox 100mg SQ q12hr until INR greater than 3 Pt last known seizure was 2004 He is compliant with medications No new medication changes admit to med/surg tele given seizure and concern for CVA Brain MRI stat consult neuro Dr. Pettit who has seen pt in past; pt is followed by Dr. Nixon of [place] CTA Head/Neck unremarkable obtain fasting lipid panel and A1C in a.m. cbc, bmp and INR in am. 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 De La Rosa POD # 7 NWB to RLE Neurovascular checks NVI distally (8) DVT prophylaxis: Continue Coumadin 17 mg daily Patient follows [facility] with goal INR 3-4, given history of TIAs with INR less than 3 Patient takes Lovenox 100 mg subcu every 12 hours when INR less than 3 for bridging Disposition: To be determined, case management consult Follow-up: PCP Dr. Garza upon discharge; Also approp follow up with Neuro Dr. Nixon of [place], [place] Patient was seen and examined in collaboration with Dr. Villasenor, please see addendum Starting 09/29/18 patient will be under the care of Dr. Stockton History of Present Illness Chief Complaint: Increased confusion Primary Care Provider: Dr. Mason Garza This is a 53-year-old male who has a significant past medical history of known factor V Leiden and protein S deficiency, history of CVA in 1995, seizure disorder as sequela of CVA with last seizure activity in 2004, cognitive deficits secondary to CVA, associated vascular dementia, HLD who presents to [facility] ED secondary to increased confusion. is at bedside provides all of history. At approximately 10:30 AM called patient felt he was more confused. She called back at 11 AM noting worsening confusion therefore home from work. When she arrived approximately 25 minutes later she felt his breathing was labored and that he was not responding to her with verbal or tactile stimuli. She then called EMS. Upon arrival to ED TIFFANY Saravia noted patient to have tonic-clonic seizure-like activity lasting 2 to 3 minutes before subsiding. Patient was last known well this morning prior to going to work. He has been compliant with his medications. 1 week ago he had right ankle reconstruction by Dr. De La Rosa and is nonweightbearing to right lower extremity, but otherwise tolerated procedure well. Currently feels patient is more alert than earlier today, but feels he is much slower to respond, not following commands appropriately. At baseline patient is able to ambulate without assist device, perform ADLs and eat on own. He does have cognitive deficits from CVA in which his states "he was evaluated by neuro psychiatrist who feels he currently functions at a level of 11-year-old." Allergies Allergy/AdvReac Type Severity Reaction Status Date / Time Penicillins Allergy Intermediate Hives Verified 09/28/18 15:07 Sulfa (Sulfonamide Allergy Intermediate Hives Verified 09/28/18 15:07 Antibiotics) amoxicillin Allergy Unknown Hives Verified 09/28/18 15:23 azithromycin Allergy Unknown Hives Verified 09/28/18 15:23 erythromycin base Allergy Unknown Hives Verified 09/28/18 15:23 Home Medications Home Medications Medication Instructions Recorded Confirmed Type enoxaparin [Lovenox] 100 mg SUBCUT DIRECTED PRN 09/21/18 09/28/18 History lamotrigine 200 mg PO TID 09/28/18 09/28/18 History topiramate 200 mg PO TID 09/28/18 09/28/18 History warfarin [Jantoven] See Rx Instructions .ROUTE .COMPLEX 09/28/18 09/28/18 History Past Med/Surg History Medical History Seizure (Acute) 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 Protein S deficiency DVT (deep venous thrombosis) LLE 1997; ON COUMADIN/USES LOVENOX PRN SUB-THERAPEUTIC INR'S Obesity Anemia On anticoagulant therapy Surgical History History of tonsillectomy History of adenoidectomy History of arthroscopy R KNEE X 2 Hematoma EVACUATION FROM R THIGH= 05/27/17= LMA #5 AT [facility] H/O thumb surgery L TENDON SURG History of ankle surgery X 3 H/O shoulder surgery LEFT History of cholecystectomy Family History Sister Stroke Factor V deficiency Social History Preferred Language: Russian Communication Ability: Impaired Strategic Sourcing Consultant Required: No Beliefs That Will Affect Care: None Current Living Situation: Family Other Information That Helps Us Care for You: No Feels Safe at Home: Yes Safety Concerns: Feels Safe At This Time Smoking Status: Never smoker Second Hand Exposure: Yes (SPOUSE SMOKES) Hx Alcohol Use: No Hx Substance Use: No Review of Systems Review of Systems: As noted per HPI, 10 systems reviewed and negative unless noted above. Physical Exam Physical Exam: Gen: WD/WN, M, NAD, lying in bed, slow to respond, answers questions appropriately when directed, occasional echocalia, pt with brief episodes of staring lasting seconds and appears unaware of surrounding Head: Normocephalic, Atraumatic Eyes: Sclera normal, no conjunctival injection, PERRLA, EOMI ENT: Gross hearing intact, normal pharynx, mucous membranes moist Neck: supple, no adenopathy, No JVD, no bruit, Resp: Clear to auscultation b/l, no wheeze, rales, rhonchi. 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 Extremities: No edema bilaterally Skin: warm, moist, no rash, negative turgor, cap refill < 2sec Neuro: Alert and oriented x 3 basics, speech slow, slow to respond to commands, point to point intact, no pronator drift, flat mood/affect, cran nerve 2-12 intact grossly : deferred Results & Data Vital Signs (Past 12 Hours) Vital Signs Temp Pulse Pulse Resp BP BP Pulse Ox 09/28/18 19:00 100 H 21 125/91 96 09/28/18 18:31 101 H 21 125/91 09/28/18 18:30 99 H 17 09/28/18 18:01 92 H 32 H 99 09/28/18 18:00 91 H 36 H 130/79 100 09/28/18 17:31 90 38 H 98 09/28/18 17:30 91 H 37 H 127/81 98 09/28/18 17:01 86 21 97 09/28/18 17:00 84 23 107/83 95 09/28/18 16:41 87 20 122/82 09/28/18 16:40 85 32 H 122/82 09/28/18 16:31 88 34 H 122/82 09/28/18 16:01 90 30 H 124/69 98 09/28/18 15:32 92 H 21 159/67 H 09/28/18 15:31 89 26 H 09/28/18 15:22 94 H 18 123/76 94 09/28/18 15:14 95 H 24 123/60 09/28/18 14:39 72 20 126/83 100 09/28/18 14:35 36.5 C 76 20 126/83 99 09/28/18 14:34 79 16 99 Laboratory Results Ioversol (Optiray 320 125ml) 120 ml IV ONCE PRN PRN Reason: Interaction Checking Stop: 10/02/18 15:51 Last Admin: 09/28/18 15:52 Dose: 1 ml Documented by: [id number] Discontinued Medications Sodium Chloride (Nss 1000ml) 250 mls @ 999 mls/hr IV .Q16M ONE Stop: 09/28/18 15:44 Last Infusion: 09/28/18 16:58 Dose: 0 mls/hr Documented by: [id number] Admin: 09/28/18 16:41 Dose: 999 mls/hr Documented by: [id number] Lorazepam (Ativan) 1 mg in 2 mls @ 2 mls/min IV NOW STA Stop: 09/28/18 18:05 Last Admin: 09/28/18 18:12 Dose: 2 mls/min Documented by: [id number] Lorazepam (Ativan) Confirm Administered Dose 2 mg .ROUTE .STK-MED ONE Stop: 09/28/18 14:52 Last Admin: 09/28/18 15:19 Dose: Not Given Documented by: [id number] Lorazepam (Ativan) Confirm Administered Dose 2 mg .ROUTE .STK-MED ONE Stop: 09/28/18 15:00 Last Admin: 09/28/18 16:41 Dose: Not Given Documented by: [id number]: IMPRESSION: No acute intracranial findings. Head/Neck CTA: Findings: Please note that the CTA of the head will be reported separately. The bilateral common carotid, cervical internal carotid and vertebral arteries are patent. There is no dissection or stenosis within these vessels. There is no significant atherosclerotic plaque. The right vertebral artery is dominant. There is no cervical spine fracture. There is no prevertebral edema. No abscess or lymphadenopathy within the neck is noted. Lung apices are suboptimally assessed due to motion. IMPRESSION: Unremarkable CTA of the neck. No dissection or stenosis. ADDENDUM Following review of the CT angiogram of the neck combined with CT angiogram of the head, the findings previously described C1-C2 level appear to be secondary to a combination of the venous and arterial flow rather than dissection. This considered an anatomic variant. Electronically signed by: Daern Hawk M.D. 09/28/2018 4:[address] angio head w con HISTORY: Mental status change left wekness/slurred speech eval for cva TECHNIQUE: Multiaxial CT angiography of the head was performed IV contrast: 1 cc Maximum intensity projection images were also obtained. A dose lowering technique was utilized adhering to the principles of ALARA. COMPARISON: None. FINDINGS: There is no mass, hematoma, midline shift, or acute infarct. Visualized intracranial internal carotid arteries, distal vertebral arteries, and basilar artery are widely patent. 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 There are findings suggestive of a potential short segment dissection of the superior left vertebral artery from images 319 through 304. IMPRESSION: 1. No significant stenosis, occlusion, or aneurysm within the [place]. 2. Short segment dissection left vertebral artery at approximately the level of C2 Medications Administered Ioversol (Optiray 320 125ml) 120 ml IV ONCE PRN PRN Reason: Interaction Checking Stop: 10/02/18 15:51 Last Admin: 09/28/18 15:52 Dose: 1 ml Documented by: [id number] Discontinued Medications Sodium Chloride (Nss 1000ml) 250 mls @ 999 mls/hr IV .Q16M ONE Stop: 09/28/18 15:44 Last Infusion: 09/28/18 16:58 Dose: 0 mls/hr Documented by: [id number] Admin: 09/28/18 16:41 Dose: 999 mls/hr Documented by: [id number] Lorazepam (Ativan) 1 mg in 2 mls @ 2 mls/min IV NOW STA Stop: 09/28/18 18:05 Last Admin: 09/28/18 18:12 Dose: 2 mls/min Documented by: [id number] Lorazepam (Ativan) Confirm Administered Dose 2 mg .ROUTE .STK-MED ONE Stop: 09/28/18 14:52 Last Admin: 09/28/18 15:19 Dose: Not Given Documented by: [id number] Lorazepam (Ativan) Confirm Administered Dose 2 mg .ROUTE .STK-MED ONE Stop: 09/28/18 15:00 Last Admin: 09/28/18 16:41 Dose: Not Given Documented by: [id number] ECG Rate (beats per minute): 94 Rhythm: sinus rhythm Code Status & VTE Plan Code Status Full Code VTE Prophylaxis Plan VTE Prophylaxis will be ordered: Yes Supervising Physician Co-Signing Physician Notes Pt was seen and examined. Agreed with Stephanie SANDERS exam, assessment and plan. 53-year-old male who has a significant past medical history of known factor V Leiden and protein S deficiency, history of CVA in 1995, seizure disorder as sequela of CVA with last seizure activity in 2004, cognitive deficits secondary to CVA, associated vascular dementia, HLD who presents to [facility] ED secondary to altered mental status status. History obtained from the . said that this morning while talking to patient over the phone, she noticed that patient was confused and was not making sense. When she arrived home, pt was unresponsive to tactile stimuli. In the ED pt was witnessed a tonic-clonic seizure-like activity lasting [address] head showed no acute intracranial findings. CTA head showed no significant stenosis, occlusion, or aneurysm within the [place]. CTA neck showed unremarkable CTA of the neck. No dissection or stenosis. CTA neck and head reviewed with radiologist Dr. Arellano over the phone to confirm there was no dissection. MRI of the head showed no acute intracranial abnormality. Case discussed with Neurology Dr. Pettit recommended to get an EEG. Will continue outpatient seizure med. Will add ativan prn for active seizure. Continue seizure precaution. Continue neuro check. Will continue monitor patient closely. Please refer to Stephanie SANDERS documentation for other problems MD Jacklyn
--- NOTE | 2018-09-28 19:35 | Magnetic Resonance Report ---
MR brain wo con CLINICAL HISTORY: 53 years-old Male presenting with possible stroke or seizure, headaches and dizzine ss, nonresponsive, bilateral weakness, recent surgery. TECHNIQUE: Multisequence, multiplanar MR imaging of the brain was performed without the use of intrav enous contrast. IV contrast: None. COMPARISON: Noncontrast CT head performed earlier today and brain MR from 08/07/2017.. FINDINGS: Localizer images: Unremarkable. Normal midline sagittal structures. Ventricles and sulci normal in size. No restricted diffusion or h emorrhage. Limited age-related change in the subcortical and periventricular white matter. No mass ef fect or midline shift. No extra-axial fluid collection. T2 skull base flow voids preserved. Bone marrow signal intensity within the calvarium within normal limits. IMPRESSION: 1. No acute intracranial abnormality. Electronically signed by: Manjit Arellano M.D. 09/28/2018 7:33 PM
[2018-09-28] MEDS ORDERED: POLYETHYLENE (MIRALAX) 17 GM PACK PO PRN (20:09)
[2018-09-28] MEDS ORDERED: MAGNESIUM HYDROXIDE SUSP 30 ML UDC PO PRN (20:09)
[2018-09-28] MEDS ORDERED: LORazepam 1 MG/2 ML VIAL IV PRN (20:09)
[2018-09-28] MEDS ORDERED: ONDANSETRON INJ 2 MG/ML 2 ML VIAL IV PRN (20:09)
[2018-09-28] MEDS ORDERED: ALUMINUM/MAGNESIUM SUSP 30 ML UDC PO PRN (20:09)
[2018-09-28] MEDS ORDERED: ACETAMINOPHEN 325 MG TAB PO PRN (20:09)
[2018-09-28] MEDS ORDERED: PHARMACIST DISCHARGE MED REC CONSULT PRN (20:09)
[2018-09-28] MEDS ORDERED: TOPIRAMATE 100 MG TAB PO SCH (21:00)
[2018-09-28] MEDS ORDERED: lamoTRIgine 100 MG TAB PO SCH (21:00)
[2018-09-28] MEDS ORDERED: WARFARIN SOD 10 MG TAB PO ONE (21:05)
--- NOTE | 2018-09-28 21:09 | Emergency Department Note ---
Entered by Kayla Tinajero acting as a scribe for Dontrell Sears MD History of Present Illness General Chief complaint: Stroke/CVA Symptoms Source: patient and family (+) Limitations: clinical acuity History of Present Illness Provider complaint: Stroke/CVA Symptoms Onset (ago): hour(s) 3 Location: head Severity: similar to prior episodes (+similar symptoms in 1997 when the patient had a stroke) Associated symptoms: + confusion and + weakness Treatments prior to arrival: other (+Lovenox ) The patient is a 53 year old male who presents to the Emergency Room with complaints of stroke/CVA symptoms that began approximately 3 hours prior to arrival. The patient's states that she left the house 10 hours prior to arrival at 7 AM and states that the patient was fine. Per , she called to check on the patient approximately 1000 and states that the patient seemed confused. Per , she called the patient again at 1145 and states that she had to call the patient 10 times because the patient kept hanging up the phone and was extremely confused. Per , when she got home to the patient she states that the patient had no idea who she was and was still extremely confused. She immediately called the ambulance. Per nursing staff, the patient was awake and alert on arrival. He appeared to have some left-sided drift in his arm and leg. He then subsequently had a 2-3 minute tonic-clonic seizure. Per , the patient had a stroke in in 1997 and has had complex seizures as a result of the patient's stroke. Per , the patient's last seizure was in 2004. He is on Topamax and Lamictal for the seizures. Per , the patient is on Jantoven and Lovenox. Per , the patient took his Lovenox this morning but states that she is unsure if the patient took his Jantoven. 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 Home Medications Home Medications Medication Instructions Recorded Confirmed Type enoxaparin [Lovenox] 100 mg SUBCUT DIRECTED PRN 09/21/18 09/28/18 History lamotrigine 200 mg PO TID 09/28/18 09/28/18 History topiramate 200 mg PO TID 09/28/18 09/28/18 History warfarin [Jantoven] See Rx Instructions .ROUTE .COMPLEX 09/28/18 09/28/18 History Allergies Allergy/AdvReac Type Severity Reaction Status Date / Time Penicillins Allergy Intermediate Hives Verified 09/28/18 15:07 Sulfa (Sulfonamide Allergy Intermediate Hives Verified 09/28/18 15:07 Antibiotics) amoxicillin Allergy Unknown Hives Verified 09/28/18 15:23 azithromycin Allergy Unknown Hives Verified 09/28/18 15:23 erythromycin base Allergy Unknown Hives Verified 09/28/18 15:23 Past Med/Surg History Medical History Seizure (Acute) 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 Beliefs That Will Affect Care: None Current Living Situation: Family Other Information That Helps Us Care for You: No Feels Safe at Home: Yes Safety Concerns: Feels Safe At This Time Smoking Status: Never smoker Second Hand Exposure: Yes (SPOUSE SMOKES) Hx Alcohol Use: No Hx Substance Use: No Review of Systems Unobtainable due to cognitive status Physical Exam Vital Signs Vital Signs - 24 hr 09/28/18 14:34 09/28/18 14:35 09/28/18 14:39 Temperature 36.5 C Temperature Source Oral Sepsis Recent Fever Within 48 Hours No Sepsis New/Unexplained Change in Mental Status No Sepsis Action Taken by Nursing No Action Required Pulse Rate 79 76 72 Pulse Rate [Finger] Pulse Rate from SpO2 Sensor 80 72 Respiratory Rate 16 20 20 Respiratory Effort / Characteristics Respiratory Depth Blood Pressure 126/83 126/83 Blood Pressure [Right Arm] Blood Pressure Mean 97 97 Blood Pressure Mean [Right Arm] Blood Pressure Position Sitting Pulse Oximetry 99 99 100 Oxygen Delivery Method 09/28/18 15:14 09/28/18 15:22 09/28/18 15:31 Temperature Temperature Source Sepsis Recent Fever Within 48 Hours Sepsis New/Unexplained Change in Mental Status Sepsis Action Taken by Nursing Pulse Rate 95 H 89 Pulse Rate [Finger] 94 H Pulse Rate from SpO2 Sensor Respiratory Rate 24 18 26 H Respiratory Effort / Characteristics Non-Labored Spontaneous Respiratory Depth Normal Blood Pressure 123/60 Blood Pressure [Right Arm] 123/76 Blood Pressure Mean 81 Blood Pressure Mean [Right Arm] 91 Blood Pressure Position Pulse Oximetry 94 Oxygen Delivery Method Room Air 09/28/18 15:32 09/28/18 16:01 09/28/18 16:31 Temperature Temperature Source Sepsis Recent Fever Within 48 Hours Sepsis New/Unexplained Change in Mental Status Sepsis Action Taken by Nursing Pulse Rate 92 H 90 88 Pulse Rate [Finger] Pulse Rate from SpO2 Sensor 90 Respiratory Rate 21 30 H 34 H Respiratory Effort / Characteristics Respiratory Depth Blood Pressure 159/67 H 124/69 122/82 Blood Pressure [Right Arm] Blood Pressure Mean 97 87 95 Blood Pressure Mean [Right Arm] Blood Pressure Position Pulse Oximetry 98 Oxygen Delivery Method 09/28/18 16:40 09/28/18 16:41 09/28/18 17:00 Temperature Temperature Source Sepsis Recent Fever Within 48 Hours Sepsis New/Unexplained Change in Mental Status Sepsis Action Taken by Nursing Pulse Rate 85 87 84 Pulse Rate [Finger] Pulse Rate from SpO2 Sensor 84 Respiratory Rate 32 H 20 23 Respiratory Effort / Characteristics Respiratory Depth Blood Pressure 122/82 122/82 107/83 Blood Pressure [Right Arm] Blood Pressure Mean 95 95 91 Blood Pressure Mean [Right Arm] Blood Pressure Position Pulse Oximetry 95 Oxygen Delivery Method 09/28/18 17:01 09/28/18 17:30 09/28/18 17:31 Temperature Temperature Source Sepsis Recent Fever Within 48 Hours Sepsis New/Unexplained Change in Mental Status Sepsis Action Taken by Nursing Pulse Rate 86 91 H 90 Pulse Rate [Finger] Pulse Rate from SpO2 Sensor 86 91 H 89 Respiratory Rate 21 37 H 38 H Respiratory Effort / Characteristics Respiratory Depth Blood Pressure 127/81 Blood Pressure [Right Arm] Blood Pressure Mean 96 Blood Pressure Mean [Right Arm] Blood Pressure Position Pulse Oximetry 97 98 98 Oxygen Delivery Method 09/28/18 18:00 09/28/18 18:01 Temperature Temperature Source Sepsis Recent Fever Within 48 Hours Sepsis New/Unexplained Change in Mental Status Sepsis Action Taken by Nursing Pulse Rate 91 H 92 H Pulse Rate [Finger] Pulse Rate from SpO2 Sensor 92 H 92 H Respiratory Rate 36 H 32 H Respiratory Effort / Characteristics Respiratory Depth Blood Pressure 130/79 Blood Pressure [Right Arm] Blood Pressure Mean 96 Blood Pressure Mean [Right Arm] Blood Pressure Position Pulse Oximetry 100 99 Oxygen Delivery Method Physical exam is limited due to the patient's condition. Constitutional: Vital signs reviewed. The patient is lethargic and appears to be postictal. Eyes: Pupils are equal round reactive to light. Conjunctiva are noninjected. ENT: Mucous membranes are moist. Respiratory: Clear to auscultation bilaterally. Breath sounds are equal bilaterally. Cardiovascular: Regular rate and rhythm. No rubs or gallops. GI: Soft, nondistended and nontender. Bowel sounds are present. Musculoskeletal: No peripheral edema. Integumentary: No cyanosis. Neurological: The patient is lethargic. He does not follow commands. Psychiatric: Unable to assess. Course 1451: The patient was evaluated in room B11B, and a complete history and physical examination were performed. 1515: I discussed the patient's case with Dr. Rachelle Rose who states that the patient's CT is negative. I updated the patient's on these results. Dr. Tolliver recommends that the patient get a CT angiogram of the head and neck. 1528: I checked on the patient. The patient's was updated on the patient's imaging and lab results. The patient is still postictal but the patient does follow some commands. Per , the patient has not missed a dose of his topimax or lamictal. 1616: I checked on the patient. The patient's was updated on the patient's imaging and lab results. The patient is still confused but will follow some commands. The patient can do [id number] with his left hand. 1650: I discussed the patient's case with Dr. Rachelle Rose who states that the patient's CT does not look like he has a dissection. I updated the patient's on the patient's results. 1723: [facility] the patient for further hospitalization. 1800: [facility] the [facility]. Consultations Consultation #1: Dr. Tolliver- Radiology Time: 15:15 Consultation #2: Dr. Tolliver- Radiology Time: 16:50 Consultation #3: Stephanie Waldron [facility] Hospitalist Time: 17:23 Additional Consultation(s): Consults: 1800: [facility] Administered Medications Ioversol (Optiray 320 125ml) 120 ml IV ONCE PRN PRN Reason: Interaction Checking Stop: 10/02/18 15:51 Last Admin: 09/28/18 15:52 Dose: 1 ml Documented by: [id number] Discontinued Medications Sodium Chloride (Nss 1000ml) 250 mls @ 999 mls/hr IV .Q16M ONE Stop: 09/28/18 15:44 Last Infusion: 09/28/18 16:58 Dose: 0 mls/hr Documented by: [id number] Admin: 09/28/18 16:41 Dose: 999 mls/hr Documented by: [id number] Lorazepam (Ativan) 1 mg in 2 mls @ 2 mls/min IV NOW STA Stop: 09/28/18 18:05 Last Admin: 09/28/18 18:12 Dose: 2 mls/min Documented by: [id number] Lorazepam (Ativan) Confirm Administered Dose 2 mg .ROUTE .STK-MED ONE Stop: 09/28/18 14:52 Last Admin: 09/28/18 15:19 Dose: Not Given Documented by: [id number] Lorazepam (Ativan) Confirm Administered Dose 2 mg .ROUTE .STK-MED ONE Stop: 09/28/18 15:00 Last Admin: 09/28/18 16:41 Dose: Not Given Documented by: [id number] Medical Decision Making Differential Diagnosis Differential diagnoses includes but is not limited to ICH, CVA, supratherapeutic INR, seizure, medication noncompliance, metabolic derrangement. Medical Records Attestation: I reviewed the patient's medical records. I did perform a limited focused review of portions of the patient's old chart on the electronic medical record. The patient has had no recent pertinent visits to this hospital. Home Medications Current Medication List: was personally reviewed by me Laboratory Data Attestation: I reviewed the patient's lab results. Result diagrams: 09/28/18 14:35 09/28/18 14:35 Lab Results 09/28/18 09/28/18 09/28/18 Range/Units 14:35 14:35 14:35 WBC 5.74 (4.8-10.8) K/uL RBC 4.73 (4.7-6.1) M/uL Hgb 14.9 (14.0-18.0) g/dL Hct 44.1 (42-52) % MCV 93.2 (80-100) fL MCH 31.5 (25-34) pg MCHC 33.8 (32-36) g/dL RDW Std Deviation 48.1 H (36.4-46.3) fL RDW Coeff of Glo 14.0 (11.5-14.5) % Plt Count 122 L (130-400) K/uL MPV 10.9 H (7.4-10.4) fL Immature Gran % (Auto) 0.2 % Neut % (Auto) 87.8 % Lymph % (Auto) 7.8 % [place] % (Auto) 4.0 % Eos % (Auto) 0.0 % Baso % (Auto) 0.2 % Immature Gran # (Auto) 0.01 (0.00-0.02) K/uL Neut # (Auto) 5.04 (1.4-6.5) K/uL Lymph # (Auto) 0.45 L (1.2-3.4) K/uL [place] # (Auto) 0.23 (0.11-0.59) K/uL Eos # (Auto) 0.00 (0-0.5) K/uL Baso # (Auto) 0.01 (0-0.2) K/uL PT 29.2 H (9.0-12.0) Seconds POC INR (0.9-1.1) INR 3.1 H (0.9-1.1) APTT 47.3 H* (21.0-31.0) Seconds PTT Ratio 1.7 Sodium 141 (136-145) mmol/L Potassium 4.4 (3.5-5.1) mmol/L Chloride 113 H (98-107) mmol/L Carbon Dioxide 21 (21-32) mmol/L Anion Gap 7.0 (3-11) BUN 18 (7-18) mg/dl Creatinine 1.41 H (0.6-1.4) mg/dl Est Cr Clr Drug Dosing 80.2 ml/min Est GFR ( Amer) 66.4 Est GFR (Non-Af Amer) 57.3 BUN/Creatinine Ratio 12.8 (10-20) Glucose 137 H (70-99) mg/dl POC Glucose (70-99) Calcium 9.6 (8.5-10.1) mg/dl Magnesium 2.4 (1.8-2.4) mg/dl Total Bilirubin 0.2 (0.2-1) mg/dl AST 22 (15-37) U/L ALT 65 (12-78) U/L Alkaline Phosphatase 107 (45-117) U/L Troponin I < 0.015 (0-0.045) ng/ml Total Protein 7.5 (6.4-8.2) gm/dl Albumin 3.7 (3.4-5.0) gm/dl Globulin 3.8 (2.5-4.0) gm/dl Albumin/Globulin Ratio 1.0 (0.9-2) Blood Type Antibody Screen 09/28/18 09/28/18 09/28/18 Range/Units 14:38 15:15 15:15 WBC (4.8-10.8) K/uL RBC (4.7-6.1) M/uL Hgb (14.0-18.0) g/dL Hct (42-52) % MCV (80-100) fL MCH (25-34) pg MCHC (32-36) g/dL RDW Std Deviation (36.4-46.3) fL RDW Coeff of Glo (11.5-14.5) % Plt Count (130-400) K/uL MPV (7.4-10.4) fL Immature Gran % (Auto) % Neut % (Auto) % Lymph % (Auto) % [place] % (Auto) % Eos % (Auto) % Baso % (Auto) % Immature Gran # (Auto) (0.00-0.02) K/uL Neut # (Auto) (1.4-6.5) K/uL Lymph # (Auto) (1.2-3.4) K/uL [place] # (Auto) (0.11-0.59) K/uL Eos # (Auto) (0-0.5) K/uL Baso # (Auto) (0-0.2) K/uL PT (9.0-12.0) Seconds POC INR 3.1 H (0.9-1.1) INR (0.9-1.1) APTT (21.0-31.0) Seconds PTT Ratio Sodium (136-145) mmol/L Potassium (3.5-5.1) mmol/L Chloride (98-107) mmol/L Carbon Dioxide (21-32) mmol/L Anion Gap (3-11) BUN (7-18) mg/dl Creatinine (0.6-1.4) mg/dl Est Cr Clr Drug Dosing ml/min Est GFR ( Amer) Est GFR (Non-Af Amer) BUN/Creatinine Ratio (10-20) Glucose (70-99) mg/dl POC Glucose 139 H (70-99) Calcium (8.5-10.1) mg/dl Magnesium (1.8-2.4) mg/dl Total Bilirubin (0.2-1) mg/dl AST (15-37) U/L ALT (12-78) U/L Alkaline Phosphatase (45-117) U/L Troponin I (0-0.045) ng/ml Total Protein (6.4-8.2) gm/dl Albumin (3.4-5.0) gm/dl Globulin (2.5-4.0) gm/dl Albumin/Globulin Ratio (0.9-2) Blood Type A Positive Antibody Screen NEGATIVE Imaging Data Radiologist's Impression: Radiology results as stated below per my review and the radiologist's interpretation: CT OF THE HEAD WITHOUT CONTRAST CLINICAL HISTORY: Confusion. COMPARISON STUDY: Head CT and MRI of the brain August 07, 2017. CT DOSE: 2469.35 mGy.cm TECHNIQUE: Helical axial images of the head were obtained without IV contrast. Automated exposure control was utilized for the study. A dose lowering technique was utilized adhering to the principles of ALARA. FINDINGS: No acute intracranial hemorrhage, midline shift or mass effect is pr esent. The ventricular system is unremarkable. The basilar cisterns are patent. No extra-axial collections are present. There are no findings to suggest acute dural sinus thrombosis or acute territorial infarct. No significant calvarial abnormalities are present. Visualized portions of the sinuses and mastoid air cells are clear. IMPRESSION: No acute intracranial findings. Electronically signed by: James Tolliver M.D. 09/28/2018 3:15 PM ADDENDUM Following review of the CT angiogram of the neck combined with CT angiogram of the head, the findings previously described C1-C2 level appear to be secondary to a combination of the venous and arterial flow rather than dissection. This considered an anatomic variant. Electronically signed by: Daren Hawk M.D. 09/28/2018 4:[address] angio head w con HISTORY: Mental status change left wekness/slurred speech eval for cva TECHNIQUE: Multiaxial CT angiography of the head was performed IV contrast: 1 cc Maximum intensity projection images were also obtained. A dose lowering technique was utilized adhering to the principles of ALARA. COMPARISON: None. FINDINGS: There is no mass, hematoma, midline shift, or acute infarct. Visualized intracranial internal carotid arteries, distal vertebral arteries, and basilar artery are widely patent. There is no significant stenosis, occlusion, or aneurysm seen within the bilateral ACAs, MCAs, or press service reader. There are findings suggestive of a potential short segment dissection of the superior left vertebral artery from images 319 through 304. IMPRESSION: 1. No significant stenosis, occlusion, or aneurysm within the kiana of [place]. 2. 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 It may contain grammatical, syntax or spelling errors. Electronically signed by: Daren Hawk M.D. 09/28/2018 3:[address] ANGIOGRAPHY OF THE NECK WITH CONTRAST CLINICAL HISTORY: Left-sided weakness. Slurred speech. COMPARISON STUDY: Carotid ultrasound August 07, 2017. Technique: CT angiography of the carotid and vertebral arteries was obtained using Boomerang 320 IV and 3D reconstruction on an independent workstation. NASCET criteria was utilized. Automated exposure control was utilized for the study. A dose lowering technique was utilized adhering to the principles of ALARA. CT DOSE: 1276.07 mGy.cm Findings: Please note that the CTA of the head will be reported separately. The bilateral common carotid, cervical internal carotid and vertebral arteries are p atent. There is no dissection or stenosis within these vessels. There is no significant atherosclerotic plaque. The right vertebral artery is dominant. There is no cervical spine fracture. There is no prevertebral edema. No abscess or lymphadenopathy within the neck is noted. Lung apices are suboptimally assessed due to motion. IMPRESSION: Unremarkable CTA of the neck. No dissection or stenosis. Electronically signed by: James Tolliver M.D. 09/28/2018 4:06 PM MR brain wo con CLINICAL HISTORY: 53 years-old Male presenting with possible stroke or seizure, headaches and dizziness, nonresponsive, bilateral weakness, recent surgery. TECHNIQUE: Multisequence, multiplanar MR imaging of the brain was performed without the use of intravenous contrast. IV contrast: None. COMPARISON: Noncontrast CT head performed earlier today and brain MR from 08/07/2017.. FINDINGS: Localizer images: Unremarkable. Normal midline sagittal structures. Ventricles and sulci normal in size. No restricted diffusion or hemorrhage. Limited age-related change in the subcortical and periventricular white matter. No mass effect or midline shift. No extra-axial fluid collection. T2 skull base flow voids preserved. Bone marrow signal intensity within the calvarium within normal limits. IMPRESSION: 1. No acute intracranial abnormality. Electronically signed by: Manjit Arellano M.D. 09/28/2018 7:33 PM ECG Data Attestation: I personally reviewed and interpreted this ECG as follows: Indication: other (+Seizure) Rate (beats per minute): 94 Rhythm: normal sinus Findings: no PVC and no ST elevation Comparison ECG Date: no prior available Blood Pressure Blood Pressure Findings: Normal blood pressure MDM Narrative I was called emergently to the room as the patient was having a seizure. I did evaluate the patient as noted above. His seizure had stopped and he appears postictal. Ativan was kept at the base side. I did call a stroke alert based on his history. He is not an IV TPA candidate as he is on Lovenox and Coumadin and also just had a seizure. IV access was established. The patient was placed on a continuous awake overnight monitor. I did order and personally review the patient's 12-lead EKG as described above. His twelve-lead EKG does not show any acute ischemia. I did order and review the patient's blood work as noted in the electronic medical record. Bedside INR is 3.1. Creatinine is slightly elevated at 1.4. He was given normal saline IV. Platelet count is slightly low at 122. I did order a CT of the head and CT angiogram of the head and neck. I did review the images myself as well as the radiology report as described above. There is no evidence of acute intracranial abnormality. No evidence of dissection on angiogram. I did speak to the [place] stroke neurologist who agreed that the patient is not an IV TPA candidate. I did reassess the patient multiple times. His mental status did improve and he was able to follow some commands. He did not have any recurrent seizure activity. I did discuss the test results with the patient's . I did discuss the case with the hospitalist and case specialist. Impression & Plan Seizure, Altered mental status, Left-sided weakness, Thrombocytopenia, Anticoagulated on warfarin Critical Care Time Critical Care Time: Yes Total Critical Care Time: 35 I have personally spent 35 minutes of critical care time in the direct management of this patient. This includes bedside care, interpretation of diagnostic studies, and testing, discussion with consultants, patient, and family members, and other required patient management activities. This 35 minutes is in excess of all separately billable procedures. Discharge Plan Visit Data *Final* Discharge Date/Time: 09/28/18 19:00 Chief Complaint: Stroke/CVA Symptoms ED Provider: Dontrell Sears Discharge Problem: Seizure, Altered mental status, Left-sided weakness, Thrombocytopenia, Anticoagulated on warfarin Patient Disposition: Admitted As Inpatient Discharge Instructions Interventions: ED Discharge Assessment Last Done: 09/28/18 19:00 The scribe's documentation has been prepared under my direction and personally reviewed by me in its entirety. I confirm that the note above accurately refle cts all work, treatment, procedures, and medical decision making performed by me.
[2018-09-28] MEDS ORDERED: WARFARIN SOD 5 MG TAB PO ONE (21:30)
[2018-09-28] MEDS ORDERED: WARFARIN SOD 2 MG TAB PO ONE (21:30)
[2018-09-28] MEDS: TOPIRAMATE 100 MG TAB PO SCH (21:55)
[2018-09-28] MEDS: lamoTRIgine 100 MG TAB PO SCH (21:56)
[2018-09-29 05:55] LABS: Estimated Average Glucose 111 mg/dl; Hemoglobin A1C 5.5 % (4.5-5.6)
[2018-09-29 06:07] LABS: Hematocrit (blood only) 43.9 % (42-52); Hemoglobin 14.8 g/dL (14.0-18.0); Immature Granulocytes # (auto) 0.01 K/uL (0.00-0.02); Immature Granulocytes % (auto) 0.2 %; Lymphocytes # (auto) 0.96 K/uL (1.2-3.4); Lymphocytes % (auto) 15.2 %; Mean Corpuscular Hgb Conc 33.7 g/dL (32-36); Mean Corpuscular Volume 92.6 fL (80-100); Mean Platelet Volume 10.6 fL (7.4-10.4); Monocytes # (auto) 0.64 K/uL (0.11-0.59); Monocytes % (auto) 10.1 %; Neutrophils # (auto) 4.72 K/uL (1.4-6.5); Neutrophils % (auto) 74.5 %; Platelet Count 121 K/uL (130-400); RDW Coefficient of Variation 14.1 % (11.5-14.5); RDW Standard Deviation 47.9 fL (36.4-46.3); Red Blood Count 4.74 M/uL (4.7-6.1); White Blood Count 6.33 K/uL (4.8-10.8)
[2018-09-29 06:19] LABS: INR 2.6 (0.9-1.1); Prothrombin Time 24.7 Seconds (9.0-12.0)
[2018-09-29 06:37] LABS: BUN Creatinine Ratio 17.5 (10-20); Calcium 8.6 mg/dl (8.5-10.1); Creatinine Clr Calc Pharmacy 106.2 ml/min; Est GFR (African American) 93.7; Est GFR (Non-African American) 80.9
[2018-09-29 07:00] LABS: Potassium 3.7 mmol/L (3.5-5.1)
--- NOTE | 2018-09-29 08:35 | Procedure Note ---
EEG Procedure Note Date of Service September 29, 2018 Start / End Times Start Time: 713 End Time: 735 Referring Physician Stephanie Rutherford PA-C, Dr. Villasenor History 53-year-old with history of epilepsy and stroke with generalized tonic-clonic seizure yesterday afternoon, with continuous altered mental status question ongoing seizure activity. Home Medication List Home Medications Medication Instructions Recorded Confirmed Type enoxaparin [Lovenox] 100 mg SUBCUT DIRECTED PRN 09/21/18 09/28/18 History lamotrigine 200 mg PO TID 09/28/18 09/28/18 History topiramate 200 mg PO TID 09/28/18 09/28/18 History warfarin [Jantoven] See Rx Instructions .ROUTE .COMPLEX 09/28/18 09/28/18 Hist ory Inpatient Medication List Ioversol (Optiray 320 125ml) 120 ml IV ONCE PRN PRN Reason: Interaction Checking Stop: 10/02/18 15:51 Last Admin: 09/28/18 15:52 Dose: 1 ml Documented by: [id number] Lamotrigine (Lamictal) 200 mg PO TID [facility] Stop: 10/28/18 20:59 Last Admin: 09/28/18 21:56 Dose: 200 mg Documented by: [id number] Topiramate (Topamax) 200 mg PO TID [facility] Stop: 10/28/18 20:59 Last Admin: 09/28/18 21:55 Dose: 200 mg Documented by: [id number] Discontinued Medications Sodium Chloride (Nss 1000ml) 250 mls @ 999 mls/hr IV .Q16M ONE Stop: 09/28/18 15:44 Last Infusion: 09/28/18 16:58 Dose: 0 mls/hr Documented by: [id number] Admin: 09/28/18 16:41 Dose: 999 mls/hr Documented by: [id number] Lorazepam (Ativan) 1 mg in 2 mls @ 2 mls/min IV NOW STA Stop: 09/28/18 18:05 Last Admin: 09/28/18 18:12 Dose: 2 mls/min Documented by: [id number] Lorazepam (Ativan) Confirm Administered Dose 2 mg .ROUTE .STK-MED ONE Stop: 09/28/18 14:52 Last Admin: 09/28/18 15:19 Dose: Not Given Documented by: [id number] Lorazepam (Ativan) Confirm Administered Dose 2 mg .ROUTE .STK-MED ONE Stop: 09/28/18 15:00 Last Admin: 09/28/18 16:41 Dose: Not Given Documented by: [id number] Warfarin Sodium (Coumadin) 10 mg PO ONE ONE Stop: 09/28/18 21:06 Last Admin: 09/28/18 21:57 Dose: 10 mg Documented by: [id number] Warfarin Sodium (Coumadin) 2 mg PO ONE ONE Stop: 09/28/18 21:31 Last Admin: 09/28/18 21:56 Dose: 2 mg Documented by: [id number] Warfarin Sodium (Coumadin) 5 mg PO ONE ONE Stop: 09/28/18 21:31 Last Admin: 09/28/18 21:56 Dose: 5 mg Documented by: [id number] Description This is a 21 electrode EEG with a single channel dedicated to limited EKG. The electrodes were placed in accordance with the International 10-20 system. Interpretation The predominant background activity consists of an irregular 5-6 Hz activity, of up to 40 mV in amplitude,seen symmetrically distributed over the posterior head regions bilaterally spreading anteriorly diffusely bilaterally. This activity has no attenuation with eye-opening and other alerting procedures. This activity alternated with a very fast activity approximately 12-15 hertz of up to 100 microvolts in amplitude continuously throughout the recording. Therefore there was an alternation of irregular low amplitude slower activity lasting anywhere from 200 milliseconds to 1 second, alternating with a high-amplitude fast activity lasting 200 milliseconds to 800 milliseconds. At no time was any clinical accompaniment noted. Patient did have some trouble keeping his eyes closed but I watch the video during portions of this alternating activity when his eyes were completely closed and he was relaxed. This alternating activity persisted throughout the entire study. No clinical accompaniment was noted and no focal abnormalities were seen. Photic stimulation was performed and elicited no change in the background activity and no abnormal responses were seen. Hyperventilation was not performed. A mild amount of muscle and eye blink and head movement artifact activity contaminated the recording, but did not hinder interpretation to any significant degree. In summary, this EEG is unusual and shows an alternating burst-suppression like activity of an irregular nature described above throughout the recording. I cannot entirely exclude this being subclinical seizure activity/potentially epileptogenic. Again, there were no focal abnormalities. Clinical Correlation This activity is potentially epileptogenic and persistent, and likely accounts for his encephalopathy.
--- NOTE | 2018-09-29 08:44 | Neurology Consultation ---
Date of Consultation September 29, 2018 Assessment & Plan (1) Seizure: Patient has a history of seizure disorder since his stroke event in 1997. He has been very well controlled since 2004 on lamotrigine and topiramate. He had a witnessed generalized tonic seizure lasting 2-3 minutes with signifi cant postictal state yesterday afternoon. He has been confused and lethargic ever since and there are reports of episodes of eye rolling yesterday (less frequent today) which may be small or subclinical seizures. On examination today he has no focal neurologic findings. He is confused with an encephalopathy but he has no meningeal signs. EEG shows an unusual variable alternating activity above burst-suppression nature which may be potentially epileptogenic. The etiology of the generalized tonic seizure and these subclinical/less of seizures are not readily apparent. However, patient had right ankle surgery 1 week ago (but was doing well without significant stress) and was put on generic Lovenox as a bridge off of warfarin. He took the last dose yesterday morning. According to the , he was itchy all over with the Lovenox had injection site reactions and had some rash on his ventral forearms bilaterally. A medication reaction as a possible etiology for seizures. Otherwise there is no other etiology including no signs of infection or inflammation. There are no metabolic abnormalities either. (2) Altered mental status: Patient has an encephalopathy likely postictal in nature. There are no signs of infection by laboratory testing and he has no fever. He has no meningeal signs. 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 He has been fairly stable with this over time. He does not have any significant mood issues otherwise. He has factor 5 Leiden and history of DVT and is on chronic anticoagulation with warfarin. Recommendations: 1. Because of the EEG and his clinical state I would recommend IV Vimpat 100 mg and see how he reacts clinically. I have discussed this with Stephanie Rutherford PA-C. We may give a 2nd dose of 100 mg later in the day for a total of IV 100 mg twice daily for the next day or so depending on how he does clinically. 2. In the meantime, encourage his usual p.o. topiramate 200 mg 3 times a day and lamotrigine 200 mg 3 times a day. Levels for these anticonvulsants are pending but may not come back for 2 or 3 days. 3. Otherwise, the we will see how he does clinically and I have no other specific neurologic testing or treatment recommendations to make. I will follow. Overall, I spent a total of 120 minutes with this case including review of records, review of current MRI films, direct evaluation the patient at bedside, and discussion of the case with the patient and his at bedside, as well as Stephanie lemon including differential diagnosis and treatment options. History of Present Illness Reason for Consultation: Patient is a 53-year-old, who I was asked to see the request of Stephanie Rutherford PA-C, for neurologic consultation regarding seizures and other issues. Requesting Physician: Stephanie Rutherford PA-C Attending Physician: Rona Stockton MD History of Present Illness I 1st saw this patient in August of 2017. He has a very complicated neurologic history which is outlined in my note of August 08, 2017. He was doing well without significant neurologic problems until 1997 when he had the onset of a severe headache with left lower extremity pain, weakness, and accompanied by a generalized seizure. He was evaluated and thought to have had a stroke. He was found to have left leg DVT and factor 5 Leiden positivity. His seizures were persistent and he was initially tried on phenobarbital which was stopped. Depakote gave him significant side effects of weight gain and diarrhea. Keppra was try but gave him no help. By 2004 he was on Lamictal and topiramate and has not had any overt seizures as far as anyone is aware since 2004 up until this hospitalization. He has been followed very closely by Dr. Pereira in [place], [place]. I saw him in August of 2017 for an acute headache with new onset right-sided numbness and other symptoms. MRI of the brain showed no new abnormalities. He had some old nonspecific small vessel ischemic changes with no other abnor malities. I suspected a complicated migraine with vasospasm. He had had many of these episodes in the past evaluated other institutions. Over the last year he has been very stable according to his who is present at bedside. She gives the vast majority of the history. At baseline the patient is ambulatory and strong with his limbs. He does not complain of headaches but has significant chronic cognitive problems with quiet mood and sparse speech. He has no significant concept of time and tends to sit for hours. He can be active and do things around the house and yard however. His memory is poor for both short and long-term. Currently he is on topiramate 200 mg 3 times a day and lamotrigine 200 mg 3 times a day. According to his he takes these medications every 8 hours dez y regularly. He is completely compliant she feels. The patient's noted that on September 26 the patient had a little bit of lightheadedness and a mild headache in the morning. On September 27 he seemed at baseline throughout the morning and afternoon but in the evening he was not quite as mentally sharp as he usually is. He was a little more confused/forgetful. Between 629 and 0715 the patient apparently was at baseline getting around the house and acting and speaking normally according to the who left for work at 7:15 a.m. she called the house around 0945 and he was somewhat confused. She then tried to call back multiple times during the rest of the morning and he was very confused. He would pick up worker the phone and not say a word and she talked. Occasionally he would hang up. She got home from work around 1245 and found him very lethargic and floppy with all his limbs. He was not talking but he was not complaining either she would get up but she tried to get him up out of bed. He arrived to the emergency room at 1434 p.m. and had a blood pressure of 126/83, pulse of 79 and regular, respiratory rate of 16, temperature 36.5, and O2 saturation 99%. Initially in the ER he was described as awake and alert but somewhat confused with weakness of his left arm and leg. Not too long after he was in the emergency room he had a 2-3 minute event consisting of generalized tonic activity without incontinence or tongue biting. His described him as very rigid. He has had no further events like that. On exam he was not following commands, lethargic, and postictal. CBC and Chem profile were largely unremarkable. Platelet count is 121. Fasting lipid profile shows a triglyceride of 142 and cholesterol 182. Urinalysis was unremarkable. CT scan of the head was unremarkable. CT angiography of the head and neck were read as unremarkable as well with no evidence of vascular stenoses or anomalies. MRI of the brain showed no acute changes. There was some mild comma old, nonspecific small vessel ischemic changes only. I reviewed these films. Nursing and the patient's describes some episodes occurring frequently throughout the evening last night consisting of his eyes rolling up the back of his head bilaterally every 2-3 seconds. Sometime in the evening Nursing felt that his pupils were bilaterally fluctuating alternating constricting in dilating. There is no note verifying this in the chart. I spoke to the [facility] hospitalist and Dr. Villasenor evaluated the patient and called me last evening verify finding that the pupils were unchanging and symmetrical the patient was somewhat lethargic and confused but was not changing with his baseline neurologically. This morning, the patient's says he is better with less episodes of his eyes rolling up and his head. He still very confused and not acting normally with speech or memory, although he is better than last evening. EEG was obtained today and shows an unusual alternating burst-suppression activity of irregular slow actively and very high amplitude fast activity. There were no specific spikes or spike and wave discharges but the entire irregular alternating patterns was potentially epileptogenic. Allergies Allergy/AdvReac Type Severity Reaction Status Date / Time Penicillins Allergy Intermediate Hives Verified 09/28/18 15:07 Sulfa (Sulfonamide Allergy Intermediate Hives Verified 09/28/18 15:07 Antibiotics) amoxicillin Allergy Unknown Hives Verified 09/28/18 15:23 azithromycin Allergy Unknown Hives Verified 09/28/18 15:23 erythromycin base Allergy Unknown Hives Verified 09/28/18 15:23 Home Medications Home Medications Medication Instructions Recorded Confirmed Type enoxaparin [Lovenox] 100 mg SUBCUT DIRECTED PRN 09/21/18 09/28/18 History lamotrigine 200 mg PO TID 09/28/18 09/28/18 History topiramate 200 mg PO TID 09/28/18 09/28/18 History warfarin [Jantoven] See Rx Instructions .ROUTE .COMPLEX 09/28/18 09/28/18 History Patient History Medical History Seizure (Acute) 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 Protein S deficiency DVT (deep venous thrombosis) LLE 1997; ON COUMADIN/USES LOVENOX PRN SUB-THERAPEUTIC INR'S Obesity Anemia On anticoagulant therapy Surgical History History of tonsillectomy History of adenoidectomy History of arthroscopy R KNEE X 2 Hematoma EVACUATION FROM R THIGH= 05/27/17= LMA #5 AT [facility] H/O thumb surgery L TENDON SURG History of ankle surgery X 3 H/O shoulder surgery LEFT History of cholecystectomy Family History Sister Stroke Factor V deficiency Mother , age 65 of a stroke. 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 He does not seem to be in pain or headache. He seems very calm and relaxed and not seemingly bothered by anything physically. Physical Exam Physical Exam: The patient is right-handed. The patient is awake, alert, and attentive. Speech is very sparse but when he does talk he does not seem to have any significant aphasia or dysarthria. His mood is very come and his affect is flat. He tends to stare without speaking making eye contact or he will lay back with his eyes closed. He was cooperative during the exam and I could get him to imitate and follow one-step commands fairly well. The discs are sharp with positive venous pulsations bilaterally. There are no exudates, hemorrhages, or blood vessel changes seen. Pupils are 4 mm bilaterally and reactive to light. Extraocular eye muscles are intact without nystagmus. Visual acuity and visual amor seem normal grossly to confrontation. There are no deficits to sensation in the face in all 3 distributions of the fifth cranial nerve bilaterally. Corneal reflexes are positive bilaterally. Facial strength and symmetry was normal bilaterally. Hearing seems intact grossly to voice and finger rub bilaterally. Palate moves well without asymmetry. There is normal sternocleidomastoid and trapezius (shoulder shrug) strength bilaterally. Tongue is midline with good strength bilaterally. Neck has a full range of motion without discomfort. There are no cervical bruits bilaterally. There are no cranial or ocular bruits. Heart is without murmur. There is a regular rhythm and rate. Cervical, thoracic, and lumbar spine are nontender to palpation. Gait is not testable but stance sitting up in bed is reasonable on his own. With outstretched arms there is no obvious drift but he did not give maximum effort. There are no resting, postural, or action tremors. There is no ataxia with finger to nose testing. There is good facility in the hands. No other abnormal involuntary movements are noted. Motor strength is seemingly 5/5 diffusely in the arms bilaterally including deltoids, biceps, triceps, brachioradialis, wrist flexors and extensors, mosaic tiler, and intrinsic hand muscles. Motor strength is seemingly 5/5 diffusely in the legs bilaterally including hip flexors, quadriceps, hamstrings, gastrocnemius, tibialis anterior, tibialis posterior, and Peroneii muscles, although I cannot test any movement at the ankle due to his cast. The patient was given good effort initially and then stop in most all muscles tested. Toe extensors are normal and there is good bulk in the extensor digitorum brevis muscles bilaterally. The limbs have good tone without rigidity or spasticity. There is no atrophy noted in the muscles although the right lower extremity is still in a cast with only the toes taking help of to the upper lower leg.. Muscle bulk is normal, there is no tenderness to palpation, no myotonia to percussion, and no fasciculations seen. Sensory examination is intact to touch and pin throughout all 4 limbs diffusely. Reflexes are 1/4 in the biceps, triceps, brachioradialis, and quadriceps tendons bilaterally. The right Achilles tendon reflexes not accessible due to the cast but the left is 1/4. Toes are downgoing with plantar stimulation bilaterally. Peripheral pulses are present and of normal quality distally in all 4 limbs. There is no peripheral edema noted in the limbs. Results & Data Vital Signs (Past 12 Hours) Vital Signs Temp Pulse Pulse Pulse Resp BP Pulse Ox 09/29/18 08:19 36.8 C 81 17 120/74 98 09/29/18 03:27 36.9 C 91 H 19 126/87 98 09/28/18 23:40 110 H 09/28/18 23:28 37.2 C 99 H 20 124/75 99 Diagnostic Findings MR brain wo con CLINICAL HISTORY: 53 years-old Male presenting with possible stroke or seizure, headaches and dizziness, nonresponsive, bilateral weakness, recent surgery. TECHNIQUE: Multisequence, multiplanar MR imaging of the brain was performed without the use of intravenous contrast. IV contrast: None. COMPARISON: Noncontrast CT head performed earlier today and brain MR from 08/07/2017.. FINDINGS: Localizer images: Unremarkable. Normal midline sagittal structures. Ventricles and sulci normal in size. No restricted diffusion or hemorrhage. Limited age-related change in the subcortical and periventricular white matter. No mass effect or midline shift. No extra-axial fluid collection. T2 skull base flow voids preserved. Bone marrow signal intensity within the calvarium within normal limits. IMPRESSION: 1. No acute intracranial abnormality. Electronically signed by: Manjit Arellano M.D. 09/28/2018 7:33 PM (1) Altered mental status Altered mental status type: unspecified Qualified Code(s): R41.82 - Altered mental status, unspecified
[2018-09-29] MEDS: lamoTRIgine 100 MG TAB PO SCH ×3 (08:57→20:20)
[2018-09-29] MEDS: TOPIRAMATE 100 MG TAB PO SCH ×3 (08:57→20:20)
[2018-09-29] MEDS ORDERED: LACOSAMIDE 100 MG in SODIUM CHLORIDE 0.9% 50 ML IV ONE (10:00)
--- NOTE | 2018-09-29 13:37 | Hospitalist Progress Note ---
Date of Service September 29, 2018 Assessment & Plan (1) Altered mental status: (2) History of CVA (cerebrovascular accident): (3) Seizure: This is a 53-year-old male who has a significant past medical history of known factor V Leiden and protein S deficiency, history of CVA in 1995, seizure d isorder as sequela of CVA with last seizure activity in 2004, cognitive deficits secondary to CVA, associated vascular dementia, HLD who presents to [facility] ED secondary to increased confusion. Pt with known factor V leiden def and Protein S def with hx of CVA in 1995 with neurocog deficits Presents 09/28 with increased confusion, witnessed tonic-clonic seizure activity by ED RN x 2-3 min, with possible postictal phase of fatigue, delayed response, difficulty following command Initial INR 3.1 09/28 - pt has been taking warfarin 17 mg daily along with bridging with Lovenox 100mg SQ q12hr until INR greater than 3 Pt last known seizure was 2004 He is compliant with medications No new medication changes Etiology of sz like activity unknown given med compliance, last seizure 2004 ?if secondary to anesthesia reaction from prior surgery (although this was 1 week ago) vs med reaction Brain MRI unrevealing Spoke with Dr. Pettit: "EEG is unusual and shows an alternating burst- suppression like activity of an irregular nature described above throughout the recording. I cannot entirely exclude this being subclinical seizure activity/potentially epileptogenic. Again, there were no focal abnormalities." continue lamictal and topamax - reference levels pending - likely to take few days to result Pt didn't tolerate depakote in past, no response to keppra Given 100mg IV Vimpat x 1 - noticed improvement in symptoms and pt now feeding self but still confused Will give additional dose of 100mg Vimpat at 9pm and assess response prior to additional dosing No evidence of infection, electrolyte abn, meningismus pt is followed by Dr. Nixon of [place] CTA Head/Neck unremarkable A1C 5.5 Lipid Panel: Triglyceride 142, total cholesterol 182, LDL 108, HDL 46 follow cbc, bmp, inr neuro checks seizure precautions Lorazepam 1mg x 1 now and q6h prn for seizure like activity (4) Factor 5 Leiden mutation, heterozygous: continue warfarin INR 2.6 today; will add lovenox given INR < 3.0 repeat INR in a.m. 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 De La Rosa POD # 8 NWB to RLE Neurovascular checks NVI distally (8) DVT prophylaxis: Continue Coumadin 17 mg daily Patient follows [facility] pharmacy with goal INR 3-4, given history of TIAs with INR less than 3 Patient takes Lovenox 100 mg subcu every 12 hours when INR less than 3 for bridging Disposition: To be determined, case management consult Follow-up: PCP Dr. Garza upon discharge; Also approp follow up with Neuro Dr. Nixon of [place] Patient was seen and examined in collaboration with Dr. Villasenor, please see ad dendum Starting 09/29/18 patient will be under the care of Dr. Stockton Supervising Physician Co-Signing Physician Notes Attending addendum: The patient was seen and examined in the telemetry unit in presence of the He is a 53-year-old male who has a significant past medical history of known factor V Leiden and protein S deficiency, history of CVA in 1995, seizure disorder as sequela of CVA with last seizure activity in 2004, cognitive deficits secondary to CVA, associated vascular dementia, HLD who presents to [facility] ED secondary to increased confusion. Possible activity of seizure noted yesterday and is documented by EEG this morning He has been more alert and oriented since administration of IV Vimpat Denies any symptoms during examination and wanted to go home On examination No apparent distress at rest Hemodynamically stable Chest-clear to auscultate bilaterally Heart-S1-S2, regular Abdomen-benign Extremities-right ankle and lower leg cast [employer]-alert, awake and oriented x3. Generally weak but no focal sensory and no motor deficit appreciated His labs and imaging studies and EEG reviewed Appreciate neurologist input and recommendation Likely had an episode of seizure and controlled with intravenous Vimpat We will get Ortho consult for management of right Achilles tendon repair Received additional dose of Lovenox with increasing dose of Coumadin to maintain INR at the recommended level Agree with assessment and plan as outlined above by MARILYN Corcoran Dr Subjective Patient seen and examined in room 207 with at bedside. Follow-up altered mental status and seizure-like activity. Patient received 100 mg IV Vimpat earlier this morning. noted improvement in patient's symptoms after administration for example, "he could feed himself lunch." She feels he is following commands better and more alert; however, he is still confused. She notes "each 1 of these events something gets worse." Patient answers questions properly but unsure how reliable. He denies review of systems including fever, chills, sweats, dizziness, headache, chest pain, shortness breath, nausea vomiting, diarrhea, changes in bowel or urinary habits. Review of Systems Review of Systems: As noted per HPI, 10 systems reviewed and negative unless noted above. Physical Exam Physical Exam: Gen: WD/WN, M,Lying in bed, Answers questions approp but unreliable, NAD, A&O to self only HEENT: Normocephalic, atraumatic, conjunctivae moist, sclerae anicteric, mucous membranes moist. Lung: Clear to Auscultation bilaterally, no wheezes/rales/rhonchi Heart: Regular rate, regular rhythm, no murmurs, rubs, or gallops Abdomen: Soft, NT, ND +BS x 4 Extremities: No edema, RLE Splint in place, NVI distally Skin: Warm, no rash, negative turgor. Neuro A & O x 1, moves all ext AROM x 4, strength in tact, following commands much improved but still with confusion Results & Data Vital Signs (Past 12 Hours) Vital Signs Temp Pulse Pulse Resp BP Pulse Ox 09/29/18 10:48 36.9 C 79 17 112/70 99 09/29/18 08:19 36.8 C 81 17 120/74 98 09/29/18 07:15 90 09/29/18 03:27 36.9 C 91 H 19 126/87 98 Laboratory Results Short CBC 09/28/18 09/29/18 Range/Units 14:35 05:53 WBC 5.74 6.33 (4.8-10.8) K/uL Hgb 14.9 14.8 (14.0-18.0) g/dL Hct 44.1 43.9 (42-52) % Plt Count 122 L 121 L (130-400) K/uL BMP 09/28/18 09/29/18 14:35 05:53 Sodium 141 140 Potassium 4.4 3.7 D Chloride 113 H 112 H Carbon Dioxide 21 21 BUN 18 19 H Creatinine 1.41 H 1.06 Glucose 137 H 113 H Calcium 9.6 8.6 Cardiac Enzymes 09/28/18 09/28/18 Range/Units 14:35 14:35 Total Creatine Kinase 86 (39-308) U/L Troponin I < 0.015 (0-0.045) ng/ml Liver Function 09/28/18 Range/Units 14:35 Total Bilirubin 0.2 (0.2-1) mg/dl AST 22 (15-37) U/L ALT 65 (12-78) U/L Alkaline Phosphatase 107 (45-117) U/L Albumin 3.7 (3.4-5.0) gm/dl Diagnostic Findings MRI: FINDINGS: Localizer images: Unremarkable. Normal midline sagittal structures. Ventricles and sulci normal in size. No restricted diffusion or hemorrhage. Limited age-related change in the subcortical and periventricular white matter. No mass effect or midline shift. No extra-axial fluid collection. T2 skull base flow voids preserved. Bone marrow signal intensity within the calvarium within normal limits. IMPRESSION: 1. No acute intracranial abnormality. EEG: Description This is a 21 electrode EEG with a single channel dedicated to limited EKG. The electrodes were placed in accordance with the International 10-20 system. Interpretation The predominant background activity consists of an irregular 5-6 Hz activity, of up to 40 mV in amplitude,seen symmetrically distributed over the posterior head regions bilaterally spreading anteriorly diffusely bilaterally. This activity has no attenuation with eye-opening and other alerting procedures. This activ ity alternated with a very fast activity approximately 12-15 hertz of up to 100 microvolts in amplitude continuously throughout the recording. Therefore there was an alternation of irregular low amplitude slower activity lasting anywhere from 200 milliseconds to 1 second, alternating with a high-amplitude fast activity lasting 200 milliseconds to 800 milliseconds. At no time was any clinical accompaniment noted. Patient did have some trouble keeping his eyes closed but I watch the video during portions of this alternating activity when his eyes were completely closed and he was relaxed. This alternating activity persisted throughout the entire study. No clinical accompaniment was noted and no focal abnormalities were seen. Photic stimulation was performed and elicited no change in the background activity and no abnormal responses were seen. Hyperventilation was not performed. A mild amount of muscle and eye blink and head movement artifact activity contaminated the recording, but did not hinder interpretation to any significant degree. In summary, this EEG is unusual and shows an alternating burst-suppression like activity of an irregular nature described above throughout the recording. I cannot entirely exclude this being subclinical seizure activity/potentially epileptogenic. Again, there were no focal abnormalities. Clinical Correlation This activity is potentially epileptogenic and persistent, and likely accounts for his encephalopathy. Medications Administered Ioversol (Optiray 320 125ml) 120 ml IV ONCE PRN PRN Reason: Interaction Checking Stop: 10/02/18 15:51 Last Admin: 09/28/18 15:52 Dose: 1 ml Documented by: [id number] Lamotrigine (Lamictal) 200 mg PO TID [facility] Stop: 10/28/18 20:59 Last Admin: 09/29/18 08:57 Dose: 200 mg Documented by: [id number] Admin: 09/28/18 21:56 Dose: 200 mg Documented by: [id number] Topiramate (Topamax) 200 mg PO TID [facility] Stop: 10/28/18 20:59 Last Admin: 09/29/18 08:57 Dose: 200 mg Documented by: [id number] Admin: 09/28/18 21:55 Dose: 200 mg Documented by: [id number] Discontinued Medications Sodium Chloride (Nss 1000ml) 250 mls @ 999 mls/hr IV .Q16M ONE Stop: 09/28/18 15:44 Last Infusion: 09/28/18 16:58 Dose: 0 mls/hr Documented by: [id number] Admin: 09/28/18 16:41 Dose: 999 mls/hr Documented by: [id number] Lorazepam (Ativan) 1 mg in 2 mls @ 2 mls/min IV NOW STA Stop: 09/28/18 18:05 Last Admin: 09/28/18 18:12 Dose: 2 mls/min Documented by: [id number] Lacosamide 100 mg/ Sodium (Chloride) 60 mls @ 120 mls/hr IV NOW ONE Stop: 09/29/18 10:29 Last Infusion: 09/29/18 10:40 Dose: 0 mls/hr Documented by: [id number] Admin: 09/29/18 09:53 Dose: 120 mls/hr Documented by: [id number] Lorazepam (Ativan) Confirm Administered Dose 2 mg .ROUTE .STK-MED ONE Stop: 09/28/18 14:52 Last Admin: 09/28/18 15:19 Dose: Not Given Documented by: [id number] Lorazepam (Ativan) Confirm Administered Dose 2 mg .ROUTE .STK-MED ONE Stop: 09/28/18 15:00 Last Admin: 09/28/18 16:41 Dose: Not Given Documented by: [id number] Warfarin Sodium (Coumadin) 10 mg PO ONE ONE Stop: 09/28/18 21:06 Last Admin: 09/28/18 21:57 Dose: 10 mg Documented by: [id number] Warfarin Sodium (Coumadin) 2 mg PO ONE ONE Stop: 09/28/18 21:31 Last Admin: 09/28/18 21:56 Dose: 2 mg Documented by: [id number] Warfarin Sodium (Coumadin) 5 mg PO ONE ONE Stop: 09/28/18 21:31 Last Admin: 09/28/18 21:56 Dose: 5 mg Documented by: [id number]
[2018-09-29] MEDS: ENOXAPARIN 100 MG/1ML SYR SQ SCH (15:41)
[2018-09-29] MEDS ORDERED: WARFARIN SOD 2 MG TAB PO SCH (16:00)
[2018-09-29] MEDS ORDERED: WARFARIN SOD 7.5 MG TAB PO SCH (16:00)
[2018-09-29] MEDS ORDERED: WARFARIN SOD 3 MG TAB PO SCH (16:00)
[2018-09-29] MEDS ORDERED: LACOSAMIDE 100 MG in SODIUM CHLORIDE 0.9% 50 ML IV SCH (21:00)
[2018-09-30] MEDS: ENOXAPARIN 100 MG/1ML SYR SQ SCH (03:36)
[2018-09-30 07:21] LABS: Basophils # (auto) 0.01 K/uL (0-0.2); Basophils % (auto) 0.2 %; Eosinophils # (auto) 0.02 K/uL (0-0.5); Eosinophils % (auto) 0.4 %; Hematocrit (blood only) 42.1 % (42-52); Hemoglobin 14.1 g/dL (14.0-18.0); Lymphocytes # (auto) 2.18 K/uL (1.2-3.4); Lymphocytes % (auto) 43.1 %; Mean Corpuscular Hgb Conc 33.5 g/dL (32-36); Mean Corpuscular Volume 93.8 fL (80-100); Mean Platelet Volume 10.8 fL (7.4-10.4); Monocytes # (auto) 0.56 K/uL (0.11-0.59); Monocytes % (auto) 11.1 %; Neutrophils # (auto) 2.29 K/uL (1.4-6.5); Neutrophils % (auto) 45.2 %; Platelet Count 131 K/uL (130-400); RDW Coefficient of Variation 14.4 % (11.5-14.5); RDW Standard Deviation 49.1 fL (36.4-46.3); Red Blood Count 4.49 M/uL (4.7-6.1); White Blood Count 5.06 K/uL (4.8-10.8)
[2018-09-30 07:48] LABS: BUN Creatinine Ratio 17.1 (10-20); Calcium 8.9 mg/dl (8.5-10.1); Creatinine Clr Calc Pharmacy 96.2 ml/min; Est GFR (African American) 83.2; Est GFR (Non-African American) 71.8; Potassium 3.8 mmol/L (3.5-5.1)
[2018-09-30 07:50] LABS: INR 5.4 (0.9-1.1); Prothrombin Time 48.9 Seconds (9.0-12.0)
--- NOTE | 2018-09-30 08:50 | Hospitalist Progress Note ---
Date of Service September 30, 2018 Assessment & Plan (1) Altered mental status: (2) History of CVA (cerebrovascular accident): (3) Seizure: This is a 53-year-old male who has a significant past medical history of known factor V Leiden and protein S deficiency, history of CVA in 1995, seizure d isorder as sequela of CVA with last seizure activity in 2004, cognitive deficits secondary to CVA, associated vascular dementia, HLD who presents to [facility] ED secondary to increased confusion. Pt with known factor V leiden def and Protein S def with hx of CVA in 1995 with neurocog deficits Presents 09/28 with increased confusion, witnessed tonic-clonic seizure activity by ED RN x 2-3 min, with possible postictal phase of fatigue, delayed response, difficulty following command Initial INR 3.1 09/28 - pt has been taking warfarin 17 mg daily along with bridging with Lovenox 100mg SQ q12hr until INR greater than 3 Pt last known seizure was 2004 He is compliant with medications No new medication changes Etiology of sz like activity unknown given med compliance, last seizure 2004 ?if secondary to anesthesia reaction from prior surgery (although this was 1 week ago) vs med reaction Lamictal and topamax levels pending Brain MRI unrevealing Spoke with Dr. Pettit: "EEG is unusual and shows an alternating burst- suppression like activity of an irregular nature described above throughout the recording. I cannot entirely exclude this being subclinical seizure activity/p otentially epileptogenic. Again, there were no focal abnormalities." continue lamictal and topamax - reference levels pending - likely to take few days to result Pt didn't tolerate depakote in past, no response to keppra Given 100mg IV Vimpat x 2 and pt has returned to baseline No evidence of infection, electrolyte abn, meningismus pt is followed by Dr. Nixon of [place] CT[facility] Head/Neck unremarkable A1C 5.5 Lipid Panel: Triglyceride 142, total cholesterol 182, LDL 108, HDL 46 follow cbc, bmp, inr neuro checks seizure precautions Lorazepam 1mg x 1 now and q6h prn for seizure like activity Recommendations per Dr. Pettit: 1. Continue his usual p.o. topiramate 200 mg 3 times a day and lamotrigine 200 mg 3 times a day. Levels for these anticonvulsants are pending but may not come back for 2 or 3 days. 2. Otherwise, I have no other specific neurologic testing or treatment recommendations to make at this time. 3. He has additional seizure activity, the 1st step would be to check is topiramate and lamotrigine levels and adjust those medicines accordingly or Vimpat could be added at 50 milligrams twice daily. However, he will be seeing Dr. Tiffani lemon in [facility], for his follow-up neurologic care. 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 De La Rosa POD # 9 Orthopedics to see today in house and then has appropriate follow up October 22 @ 8:30 at [facility] NWB to RLE Neurovascular checks NVI distally (8) DVT prophylaxis: Warfarin - INR 5.4 today Patient follows [facility] pharmacy with goal INR 3-4, given history of TIAs with INR less than 3 Patient takes Lovenox 100 mg subcu every 12 hours when INR less than 3 for bridging Will discuss with [facility] pharmacy Disposition: To be discharged today after ortho evals patient Follow-up: PCP Dr. Garza upon discharge; Also approp follow up with Neuro Dr. Nixon of [place] Patient was seen and examined in collaboration with Dr. Red, please see addendum Supervising Physician Co-Signing Physician Notes Attending addendum: Patient was seen and examined in telemetry unit in presence of the He denies any symptoms and back to his baseline He has been waiting to be seen by the Ortho and depending on the recommendation he may be going home this afternoon On examination No apparent distress at rest Hemodynamically stable Chest-clear to auscultate bilaterally Heart-S1-S2 regular Abdomen-benign Extremities-has right ankle and lower leg is in cast [employer]-alert, awake and oriented x3. No focal neuro deficit Labs and imaging studies noted INR went up to 5.4-appropriate measure has been taken Neuro input appreciated Awaiting Ortho input and recommendation Agree with assessment and plan as outlined above by MARILYN Corcoran DR Subjective Patient seen and examined in room 207 with at bedside. Follow-up altered mental status and seizure-like activity. Patient is much improved this morning. Overall feels well. Is back to baseline. He denies any pain. Slept okay last evening. Denies lightheadedness, dizziness, fever, chills, sweats, chest pain, shortness of breath, nausea, vomiting, abdominal pain, change in bowel or urinary habits. noted significant improvement after IV Vimpat and feels he is back to baseline. Review of Systems Review of Systems: As noted per HPI, 10 systems reviewed and negative unless noted above. Physical Exam Physical Exam: Gen: WD/WN, male, sitting up in bed eating breakfast, NAD, A&O x3 HEENT: Normocephalic, atraumatic, conjunctivae moist, sclerae anicteric, mucous membranes moist. Lung: Clear to Auscultation bilaterally, no wheezes/rales/rhonchi Heart: Regular rate, regular rhythm, no murmurs, rubs, or gallops Abdomen: Soft, NT, ND +BS x 4 Extremities: No edema, right lower extremity cast in place, NVI distally Skin: Warm, no rash, negative turgor. Results & Data Vital Signs (Past 12 Hours) Vital Signs Temp Pulse Resp BP Pulse Ox 09/30/18 06:43 37.0 C 72 17 117/78 98 09/30/18 03:33 36.7 C 70 17 109/75 97 09/29/18 23:34 37.0 C 83 18 131/87 97 Laboratory Results Short CBC 09/30/18 Range/Units 06:56 WBC 5.06 (4.8-10.8) K/uL Hgb 14.1 (14.0-18.0) g/dL Hct 42.1 (42-52) % Plt Count 131 (130-400) K/uL BMP 09/30/18 06:56 Sodium 143 Potassium 3.8 Chloride 113 H Carbon Dioxide 25 BUN 20 H Creatinine 1.17 Glucose 96 Calcium 8.9 Diagnostic Findings Patient monitored on telemetry and has been normal sinus rhythm 60 to 70 bpm Medications Administered Ioversol (Optiray 320 125ml) 120 ml IV ONCE PRN PRN Reason: Interaction Checking Stop: 10/02/18 15:51 Last Admin: 09/28/18 15:52 Dose: 1 ml Documented by: [id number] Lamotrigine (Lamictal) 200 mg PO TID [facility] Stop: 10/28/18 20:59 Last Admin: 09/30/18 08:57 Dose: 200 mg Documented by: [id number] Admin: 09/29/18 20:20 Dose: 200 mg Documented by: [id number] Admin: 09/29/18 14:14 Dose: 200 mg Documented by: [id number] Admin: 09/29/18 08:57 Dose: 200 mg Documented by: [id number] Admin: 09/28/18 21:56 Dose: 200 mg Documented by: [id number] Topiramate (Topamax) 200 mg PO TID [facility] Stop: 10/28/18 20:59 Last Admin: 09/30/18 08:57 Dose: 200 mg Documented by: [id number] Admin: 09/29/18 20:20 Dose: 200 mg Documented by: [id number] Admin: 09/29/18 14:14 Dose: 200 mg Documented by: [id number] Admin: 09/29/18 08:57 Dose: 200 mg Documented by: [id number] Admin: 09/28/18 21:55 Dose: 200 mg Documented by: [id number] Warfarin Sodium (Coumadin) 15 mg PO DAILY@1600 [facility] Stop: 10/29/18 15:59 Last Admin: 09/29/18 17:01 Dose: 15 mg Documented by: [id number] Warfarin Sodium (Coumadin) 3 mg PO DAILY@1600 [facility] Stop: 10/29/18 15:59 Last Admin: 09/29/18 17:03 Dose: 3 mg Documented by: [id number] Discontinued Medications Enoxaparin Sodium (Lovenox) 100 mg SQ Q12H [facility] Stop: 09/30/18 02:31 Last Admin: 09/30/18 03:36 Dose: 100 mg Documented by: [id number] Admin: 09/29/18 15:41 Dose: 100 mg Documented by: [id number] Sodium Chloride (Nss 1000ml) 250 mls @ 999 mls/hr IV .Q16M ONE Stop: 09/28/18 15:44 Last Infusion: 09/28/18 16:58 Dose: 0 mls/hr Documented by: [id number] Admin: 09/28/18 16:41 Dose: 999 mls/hr Documented by: [id number] Lorazepam (Ativan) 1 mg in 2 mls @ 2 mls/min IV NOW STA Stop: 09/28/18 18:05 Last Admin: 09/28/18 18:12 Dose: 2 mls/min Documented by: [id number] Lacosamide 100 mg/ Sodium (Chloride) 60 mls @ 120 mls/hr IV NOW ONE Stop: 09/29/18 10:29 Last Infusion: 09/29/18 10:40 Dose: 0 mls/hr Documented by: [id number] Admin: 09/29/18 09:53 Dose: 120 mls/hr Documented by: [id number] Lacosamide 100 mg/ Sodium (Chloride) 60 mls @ 120 mls/hr IV TODAY@2100 [facility] Stop: 09/29/18 21:29 Last Infusion: 09/29/18 21:37 Dose: 0 mls/hr Documented by: [id number] Admin: 09/29/18 20:54 Dose: 120 mls/hr Documented by: [id number] Lorazepam (Ativan) Confirm Administered Dose 2 mg .ROUTE .STK-MED ONE Stop: 09/28/18 14:52 Last Admin: 09/28/18 15:19 Dose: Not Given Documented by: [id number] Lorazepam (Ativan) Confirm Administered Dose 2 mg .ROUTE .STK-MED ONE Stop: 09/28/18 15:00 Last Admin: 09/28/18 16:41 Dose: Not Given Documented by: [id number] Warfarin Sodium (Coumadin) 10 mg PO ONE ONE Stop: 09/28/18 21:06 Last Admin: 09/28/18 21:57 Dose: 10 mg Documented by: [id number] Warfarin Sodium (Coumadin) 2 mg PO ONE ONE Stop: 09/28/18 21:31 Last Admin: 09/28/18 21:56 Dose: 2 mg Documented by: [id number] Warfarin Sodium (Coumadin) 5 mg PO ONE ONE Stop: 09/28/18 21:31 Last Admin: 09/28/18 21:56 Dose: 5 mg Documented by: [id number]
--- NOTE | 2018-09-30 08:52 | Neurology Progress Note ---
Date of Service September 30, 2018 Assessment & Plan (1) Seizure: Patient has a history of seizure disorder since his stroke event in 1997. He has been very well controlled since 2004 on lamotrigine and topiramate. He had a witnessed generalized tonic seizure, 6-25, lasting 2-3 minutes with significant postictal state yesterday afternoon. He had been confused and lethargic ever since into September 29, and there were reports of episodes of eye rolling from September 28 into September 29, which may be small or subclinical seizures. On examination today he has no focal neurologic findings, meningeal signs, or obvious encephalopathy. He is markedly improved with his mental status and conversation today. EEG September 29 showed an unusual variable alternating activity above burst- suppression nature which may be potentially epileptogenic. He was given Vimpat 100 milligrams twice IV September 29. The etiology of the generalized tonic seizure and these subclinical seizures are not readily apparent. However, patient had right ankle surgery 1 week ago (but was doing well without significant stress) and was put on generic Lovenox as a bridge off of warfarin. He took the last dose morning of September 28. According to the , he was itchy all over with the Lovenox, had injection site reactions, and had some rash on his ventral forearms bilaterally. A medication reaction could be a possible etiology for seizures. Otherwise there was no other etiology, including no signs of infection or inflammation, identified. There are no metabolic abnormalities either. (2) Altered mental status: Patient had an encephalopathy September 29 likely postictal in nature. 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 He has been fairly stable with this over time. He does not have any significant mood issues otherwise. He seems to be at his baseline mental status and neurologic function today He has factor 5 Leiden and history of DVT and is on chronic anticoagulation with warfarin. Recommendations: 1. Continue his usual p.o. topiramate 200 mg 3 times a day and lamotrigine 200 mg 3 times a day. Levels for these anticonvulsants are pending but may not come back for 2 or 3 days. 2. Otherwise, I have no other specific neurologic testing or treatment recommendations to make at this time. 3. He has additional seizure activity, the 1st step would be to check is topiramate and lamotrigine levels and adjust those medicines accordingly or Vimpat could be added at 50 milligrams twice daily. However, he will be seeing Dr. Tiffani lemon in [facility], for his follow-up neurologic care. Overall, I spent a total of 25 minutes with this case including review of records, direct evaluation the patient at bedside, and discussion of the case with the patient at bedside, as well as Stephanie Rutherford PA-C, including differential diagnosis and treatment options. Subjective Patient is doing remarkably better today compared to yesterday. He is conversant and has no complaints of pain or headache. He does have a little bit of left shoulder pain left over from his shoulder surgery 1 month ago. His right ankle and foot are doing well in the cast. Nursing reports no seizure activity overnight or this morning. Blood pressure is 117/78. CBC today was unremarkable. Chem profile was unremarkable as well. Physical Exam Physical Exam: He is awake and alert. He makes eye contact and smiles. He answers questions appropriately. He is oriented to person, age, place, month, year, day, age. Extraocular eye muscles are intact without nystagmus. He has no facial droop. Speech is without aphasia or dysarthria. Coordination is normal in the arms. There are no abnormal involuntary movements. Strength is 5/5 diffusely in all major muscle groups in arms and legs both proximally distally although he is a little giveaway weakness secondary to pain in the left shoulder. The right foot cannot be assessed because he is in a cast. Results & Data Vital Signs (Past 12 Hours) Vital Signs Temp Pulse Resp BP Pulse Ox 09/30/18 06:43 37.0 C 72 17 117/78 98 09/30/18 03:33 36.7 C 70 17 109/75 97 09/29/18 23:34 37.0 C 83 18 131/87 97 (1) Altered mental status Altered mental status type: unspecified Qualified Code(s): R41.82 - Altered mental status, unspecified
[2018-09-30] MEDS: TOPIRAMATE 100 MG TAB PO SCH ×2 (08:57→14:14)
[2018-09-30] MEDS: lamoTRIgine 100 MG TAB PO SCH ×2 (08:57→14:14)
--- NOTE | 2018-09-30 14:06 | Discharge Summary ---
Date of Service September 30, 2018 Admission HPI Per Admitting Provider This is a 53-year-old male who has a significant past medical history of known factor V Leiden and protein S deficiency, history of CVA in 1995, seizure disorder as sequela of CVA with last seizure activity in 2004, cognitive deficits secondary to CVA, associated vascular dementia, HLD who presents to [facility] ED secondary to increased confusion. is at bedside provides all of history. At approximately 10:30 AM called patient felt he was more confused. She called back at 11 AM noting worsening confusion therefore home from work. When she arrived approximately 25 minutes later she felt his breathing was labored and that he was not responding to her with verbal or tactile stimuli. She then called EMS. Upon arrival to ED RN Rani noted patient to have tonic-clonic seizure-like activity lasting 2 to 3 minutes before subsiding. Patient was last known well this morning prior to going to work. He has been compliant with his medications. 1 week ago he had right ankle reconstruction by Dr. De La Rosa and is nonweightbearing to right lower extremity, but otherwise tolerated procedure well. Currently feels patient is more alert than earlier today, but feels he is much slower to respond, not following commands appropriately. At baseline patient is able to ambulate without assist device, perform ADLs and eat on own. He does have cognitive deficits from CVA in which his states "he was evaluated by neuro psychiatrist who feels he currently functions at a level of 11-year-old." Admission Exam Per Admitting Provider Gen: WD/WN, M, NAD, lying in bed, slow to respond, answers questions appropriately when directed, occasional echocalia, pt with brief episodes of staring lasting seconds and appears unaware of surrounding Head: Normocephalic, Atraumatic Eyes: Sclera normal, no conjunctival injection, PERRLA, EOMI ENT: Gross hearing intact, normal pharynx, mucous membranes moist Neck: supple, no adenopathy, No JVD, no bruit, Resp: Clear to auscultation b/l, no wheeze, rales, rhonchi. 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 De La Rosa POD #9 Discharge Exam Gen: WD/WN, male, sitting up in bed eating breakfast, NAD, A&O x3 HEENT: Normocephalic, atraumatic, conjunctivae moist, sclerae anicteric, mucous membranes moist. Lung: Clear to Auscultation bilaterally, no wheezes/rales/rhonchi Heart: Regular rate, regular rhythm, no murmurs, rubs, or gallops Abdomen: Soft, NT, ND +BS x 4 Extremities: No edema, right lower extremity cast in place, NVI distally, LLE venous stasis changes Skin: Warm, no rash, negative turgor. Discharge Data Allergies Allergy/AdvReac Type Severity Reaction Status Date / Time Penicillins Allergy Intermediate Hives Verified 09/28/18 15:07 Sulfa (Sulfonamide Allergy Intermediate Hives Verified 09/28/18 15:07 Antibiotics) amoxicillin Allergy Unknown Hives Verified 09/28/18 15:23 azithromycin Allergy Unknown Hives Verified 09/28/18 15:23 erythromycin base Allergy Unknown Hives Verified 09/28/18 15:23 Consultations 09/28/18 16:51 ED Decision to Admit Stat Neurology consult: Date of Service September 30, 2018 Assessment & Plan (1) Seizure: Patient has a history of seizure disorder since his stroke event in 1997. He has been very well controlled since 2004 on lamotrigine and topiramate. He had a witnessed generalized tonic seizure, 6-25, lasting 2-3 minutes with significant postictal state yesterday afternoon. He had been confused and lethargic ever since into September 29, and there were reports of episodes of eye rolling from September 28 into September 29, which may be small or subclinical seizures. On examination today he has no focal neurologic findings, meningeal signs, or obvious encephalopathy. He is markedly improved with his mental status and conv ersation today. EEG September 29 showed an unusual variable alternating activity above burst- suppression nature which may be potentially epileptogenic. He was given Vimpat 100 milligrams twice IV September 29. The etiology of the generalized tonic seizure and these subclinical seizures are not readily apparent. However, patient had right ankle surgery 1 week ago (but was doing well without significant stress) and was put on generic Lovenox as a bridge off of warfarin. He took the last dose morning of September 28. According to the , he was itchy all over with the Lovenox, had injection site r eactions, and had some rash on his ventral forearms bilaterally. A medication reaction could be a possible etiology for seizures. Otherwise there was no other etiology, including no signs of infection or inflammation, identified. There are no metabolic abnormalities either. (2) Altered mental status: Patient had an encephalopathy September 29 likely postictal in nature. 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 He has been fairly stable with this over time. He does not have any significant mood issues otherwise. He seems to be at his baseline mental status and neurologic function today He has factor 5 Leiden and history of DVT and is on chronic anticoagulation with warfarin. Recommendations: 1. Continue his usual p.o. topiramate 200 mg 3 times a day and lamotrigine 200 mg 3 times a day. Levels for these anticonvulsants are pending but may not come back for 2 or 3 days. 2. Otherwise, I have no other specific neurologic testing or treatment recommendations to make at this time. 3. He has additional seizure activity, the 1st step would be to check is topiramate and lamotrigine levels and adjust those medicines accordingly or Vimpat could be added at 50 milligrams twice daily. However, he will be seeing Dr. Tiffani lemon in [facility], for his follow-up neurologic care. Overall, I spent a total of 25 minutes with this case including review of records, direct evaluation the patient at bedside, and discussion of the case with the patient at bedside, as well as Stephanie Rutherford PA-C, including differential diagnosis and treatment options. 09/29/18 16:30 Consult Orthopedic Surgery Routine Ordered Studies Head CT: IMPRESSION: No acute intracranial findings. Head/Neck CTA: Findings: Please note that the CTA of the head will be reported separately. The bilateral common carotid, cervical internal carotid and vertebral arteries are patent. There is no dissection or stenosis within these vessels. There is no significant atherosclerotic plaque. The right vertebral artery is dominant. There is no cervical spine fracture. There is no prevertebral edema. No abscess or lymphadenopathy within the neck is noted. Lung apices are suboptimally assessed due to motion. IMPRESSION: Unremarkable CTA of the neck. No dissection or stenosis. ADDENDUM Following review of the CT angiogram of the neck combined with CT angiogram of the head, the findings previously described C1-C2 level appear to be secondary to a combination of the venous and arterial flow rather than dissection. This considered an anatomic variant. Electronically signed by: Daren Hawk M.D. 09/28/2018 4:[address] angio head w con HISTORY: Mental status change left wekness/slurred speech eval for cva TECHNIQUE: Multiaxial CT angiography of the head was performed IV contrast: 1 cc Maximum intensity projection images were also obtained. A dose lowering technique was utilized adhering to the principles of ALARA. COMPARISON: None. FINDINGS: There is no mass, hematoma, midline shift, or acute infarct. Visualized intracranial internal carotid arteries, distal vertebral arteries, and basilar artery are widely patent. There is no significant stenosis, occlusion, or aneurysm seen within the bilateral ACAs, MCAs, or lathe winder. There are findings suggestive of a potential short segment dissection of the superior left vertebral artery from images 319 through 304. IMPRESSION: 1. No significant stenosis, occlusion, or aneurysm within the [place]. 2. Short segment dissection left vertebral artery at approximately the level of C2 Medications Administered MRI Brain: FINDINGS: Localizer images: Unremarkable. Normal midline sagittal structures. Ventricles and sulci normal in size. No restricted diffusion or hemorrhage. Limited age-related change in the subcortical and periventricular white matter. No mass effect or midline shift. No extra-axial fluid collection. T2 skull base flow voids preserved. Bone marrow signal intensity within the calvarium within normal limits. IMPRESSION: 1. No acute intracranial abnormality. EEG: In summary, this EEG is unusual and shows an alternating burst-suppression like activity of an irregular nature described above throughout the recording. I cannot entirely exclude this being subclinical seizure activity/potentially epileptogenic. Again, there were no focal abnormalities. Clinical Correlation This activity is potentially epileptogenic and persistent, and likely accounts for his encephalopathy. A1C 5.5 Lipid Panel: Triglyceride 142, total cholesterol 182, LDL 108, HDL 46 Short CBC 09/30/18 Range/Units 06:56 WBC 5.06 (4.8-10.8) K/uL Hgb 14.1 (14.0-18.0) g/dL Hct 42.1 (42-52) % Plt Count 131 (130-400) K/uL BMP 09/30/18 06:56 Sodium 143 Potassium 3.8 Chloride 113 H Carbon Dioxide 25 BUN 20 H Creatinine 1.17 Glucose 96 Calcium 8.9 INR at discharge 5.4 Hospital Course (1) Altered mental status: (2) History of CVA (cerebrovascular accident): (3) Seizure: This is a 53-year-old male who has a significant past medical history of known factor V Leiden and protein S deficiency, history of CVA in 1995, seizure disorder as sequela of CVA with last seizure activity in 2004, cognitive deficits secondary to CVA, associated vascular dementia, HLD who presents to [facility] ED secondary to increased confusion. Pt with known factor V leiden def and Protein S def with hx of CVA in 1995 with neurocog deficits. Presents 09/28 with increased confusion, witnessed tonic-clonic seizure activity by ED RN x 2-3 min, with possible postictal phase of fatigue, delayed response, difficulty following command. Pt last known seizure was 2004. He is compliant with medications No new medication changes. CT head, CTA Head/Neck, MRI Brain relatively unremarkable. Dr. Pettit of neurology consulted and EEG performed. EEG results as follows:" unusual and shows an alternating burst-suppression like activity of an irregular nature described above throughout the recording. I cannot entirely exclude this being subclinical seizure activity/potentially epileptogenic. " Etiology of seizure like activity unknown given med compliance, last seizure 2004. No infectious etiology, electrolyte abnormality or signs of meningitis. Question if secondary to anesthesia reaction from prior surgery (although was > 1 week ago) vs med reaction from generic lovenox which gave patient rash and irregular/unusual bruising. Lamictal and topamax levels pending. Patient has known adverse reaction to Depakote and has previously trialed Keppra with no results. He was then given a dose of 100 mg IV Vimpat on the morning of 09/29 and in approximately an hour and a half noted improvement with verbalization and following commands, mental status was still altered. He received a second dose of Vimpat 100 mg IV later that evening. Upon reevaluation the next day patient returned to baseline, following commands and mental status back to normal without recollection of events. He was reevaluated by neurology the morning of 09/30 and it was recommended to continue Topamax and Lamictal as prescribed. Levels are currently still pending at discharge. If events recur it is the recommendation of Dr. Pettit to initiate Vimpat 50 mg twice daily. Further recommendations for patient to follow-up neurologist in [place] Dr. Nixon. At discharge patient INR was 5.4. Patient's goal range is 3-4 given propensity to clot with INR less than 3. INR less than 3 patient takes SQ Lovenox injections 100 mg every 12 hours. Patient and were instructed to hold Coumadin evening of 09/30 and resume Coumadin at 17 mg daily on 09/23. He will have a PT/INR as a standing order at [facility] on 10/04 and have appropriate follow-up with [facility] pharmacy. Lastly patient was POD #9 S/P Right Ankle Talofibular Ligament Reconstruction by Dr. De La Rosa. He was seen and evaluated by [facility] orthopedics prior to discharge. 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 De La Rosa POD # 9 Orthopedics to see today in house and then has appropriate follow up October 22 @ 8:30 at [facility] to RLE Neurovascular checks NVI distally (8) DVT prophylaxis: Warfarin - INR 5.4 today Patient follows [facility] with goal INR 3-4, given history of TIAs with INR less than 3 Patient takes Lovenox 100 mg subcu every 12 hours when INR less than 3 for bridging Will discuss with [facility] pharmacy Disposition: To be discharged today after ortho evals patient Follow-up: PCP Dr. Garza upon discharge; Also approp follow up with Neuro Dr. Nixon of [place], [place] Patient was seen and examined in collaboration with Dr. Red, please see addendum Total Time Total Time Spent Total Time Spent (In Minutes): 60 minutes Total Time Includes: Examination of the Patient, Discharge Planning, Medication Reconciliation and Communication With Other Providers Discharge Plan Discharge Items Patient Disposition: Home - Self-Care Reason For Visit: Seizure like activity/unresponsiveness Discharge Diagnosis: Seizure disorder History of stroke Protein S deficiency Factor V deficiency Cognitive deficits from prior stroke Recent right ankle reconstruction surgery Condition: Good Discharge Goals: Decrease discomfort, Diagnostic testing, Improve function and Increase independence Activity: As commented below Activity Comment: Resume your previous activity; nonweightbearing to right lower extremity per orthopedic Lifting: None Bathing: No limitations Driving/Machine Use Comment: Absolutely No Driving Weightbearing: Right non-weightbearing Non-emergency contact: Primary Care Provider and Neurologist Call non-emergency contact if: you have any medication questions, your symptoms worsen and your temperature is above 100.5 Follow-up/Referrals: Mariel Nixon [Other] - 10/09/18 10:15 am (Neurology) Dontrell De La Rosa DO [Surgeon] - 10/22/18 8:30 am Mason Garza MD [Staff Physician] - 10/04/18 10:45 am (Pt will have appointment with Dr. Quintero ) Diet: Regular Addtl Provider Instructions: You were admitted to the hospital for seizure-like activity and unresponsiveness You were seen and evaluated by neurologist Dr. Pettit You had an EEG which was abnormal concerning for seizure-like activity You received IV Vimpat, which is an antiseizure medication for 2 doses It is unsure what caused you to have seizures despite being compliant with your medications MEDICATION CHANGES: You will hold your warfarin tonight, 09/30/2018 Resume your warfarin on 10/01/2018 at 17 mg daily until you have a follow-up INR Continue all other medications as prescribed SUMMARY OF TEST RESULTS: MRI Brain showed no acute abnormality Head and Neck Angiogram was unremarkable EEG: Positive for abnormality concerning for seizure-like activity PENDING TEST RESULTS: Your Lamictal and Topamax levels are still pending If these are low this could have caused you to have seizure like activity RECOMMENDATIONS FOR FOLLOW-UP: Absolutely NO driving for 6 months or until cleared by Neurologist Dr. Nixon You are to hold Coumadin this evening 09/30/2018 Resume Coumadin at 17 mg daily on 10/01/2018 A repeat INR will need to be done ThursdayOctober 04 at [facility] You will be contacted by [facility] pharmacist to discuss Coumadin result You have been made appropriate follow up appointments with your primary care provider and neurologist OTHER INSTRUCTIONS: Seek medical attention if you have: * Additional seizure like activity * temperature above 101 * chest pain or trouble breathing * abdominal pain, nausea, vomiting * diarrhea, dark stools or bloody stools * any unanswered questions or concerns Call 911 if symptoms are severe. Please take good care of yourself. Call if you have any questions or problems. You can reach a [facility] hospitalist on duty at [facility] 24 hours a day by calling [phone]. My cell number # is [phone] It was a pleasure taking care of you Stephanie Waldron PA-C Prescriptions: Continued lamotrigine 200 mg tablet 200 mg PO TID RF: 0 topiramate 200 mg tablet 200 mg PO TID RF: 0 warfarin [Jantoven] 1 mg tablet See Rx Instructions .ROUTE .COMPLEX RF: 0 Discontinued enoxaparin [Lovenox] 100 mg/mL Syringe 100 mg SUBCUT DIRECTED PRN (Reason: INR Below 3) RF: 0 Stand-Alone Forms: My [facility] Discharge Orders: Discharge Order (Routine); Ordered 09/30/18 Ordered By: Stephanie Waldron Admission Data Admit Date/Time: 09/28/18 18:21 Attending Provider: Crissy Red Admit Provider: Fátima Villasenor Primary Care Provider: PCP,NO Other Providers: Fátima Villasenor ; Girish Pettit III ; Latisha Harmon ; Dontrell De La Rosa Service: Telemetry Other Interventions: Discharge Summary Assessment (RN) Last Done: 09/30/18 14:42 Pending Studies at Discharge: Yes Studies:: Topamax and Lamictal Level DC Date/Time DO NOT enter until pt leaves facility: 09/30/18 15:27 Supervising Physician Co-Signing Physician Notes Attending addendum: The discharge summary was reviewed and amended as needed. Review with the summary as documented by MARILYN Corcoran Dr
--- NOTE | 2018-09-30 20:31 | Orthopedic Consultation ---
Date of Consultation September 30, 2018 Assessment & Plan (1) Right ankle instability: The patient is postoperative day #9 status post reconstruction right ankle ligaments with depression technique secondary to chronic right ankle instability. Continued with nonweightbearing right lower extremity, ice and elevation, pain control, maintain splint immobilization at this time. Take your DVT prophylaxis as prescribed. Follow-up with Dr. De La Rosa at your regular scheduled postoperative follow-up appointment on 09/23/2018. Thank you for the consultation. History of Present Illness Reason for Consultation: Pod #9 right ankle ligament reconstruction with brostum technique Attending Physician: Crissy Red MD History of Present Illness The patient is a 53-year-old male who presented to [facility] secondary to increased confusion. Underwent recent right ankle ligament reconstruction secondary to instability by Dr. De La Rosa on 09/21/2018. The patient has been doing well postoperatively and is without complaints at this time. Has follow-up appointment with Dr. De La Rosa on 10/01/2018. We were consulted due to the acute postoperative nature of his surgery. His pain is well controlled. Allergies Allergy/AdvReac Type Severity Reaction Status Date / Time Penicillins Allergy Intermediate Hives Verified 09/28/18 15:07 Sulfa (Sulfonamide Allergy Intermediate Hives Verified 09/28/18 15:07 Antibiotics) amoxicillin Allergy Unknown Hives Verified 09/28/18 15:23 azithromycin Allergy Unknown Hives Verified 09/28/18 15:23 erythromycin base Allergy Unknown Hives Verified 09/28/18 15:23 Home Medications Home Medications Medication Instructions Recorded Confirmed Type lamotrigine 200 mg PO TID 09/28/18 09/28/18 History topiramate 200 mg PO TID 09/28/18 09/28/18 History warfarin [Jantoven] See Rx Instructions .ROUTE .COMPLEX 09/28/18 09/28/18 History Patient History Medical History Seizure (Acute) 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 Protein S deficiency DVT (deep venous thrombosis) LLE 1997; ON COUMADIN/USES LOVENOX PRN SUB-THERAPEUTIC INR'S Obesity Anemia On anticoagulant therapy Surgical History History of tonsillectomy History of adenoidectomy History of arthroscopy R KNEE X 2 Hematoma EVACUATION FROM R THIGH= 05/27/17= LMA #5 AT [facility] H/O thumb surgery L TENDON SURG History of ankle surgery X 3 H/O shoulder surgery LEFT History of cholecystectomy Family History Sister Stroke Factor V deficiency Mother , age 65 of a stroke. 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 Short leg posterior splint with you clean dry and intact. Constitutional: WD/WN, vitals as above Results & Data Vital Signs (Past 12 Hours) Vital Signs Temp Pulse Pulse Resp BP Pulse Ox 09/30/18 14:42 36.8 C 72 71 18 114/75 96 09/30/18 11:09 36.8 C 71 18 114/75 96
[2018-10-02 21:14] LABS: Lamictal(Lamotrigine) 1.2 mcg/mL (4.0-18.0); Topiramate 17.5 mcg/mL
== END 2018-09-30 15:27 | disposition home or self-care (01) | DRG 101 ==
LOC: ED 14:20 → MERGE 14:20 → SUATTDRO 18:21 → 2E 18:21

== ENCOUNTER 2019-12-26 09:33 | Inpatient (IN) ==
--- NOTE | 2019-12-08 15:37 | PAT Medication Instructions ---
Medication Instructions Date of Service December 08, 2019 Home Medications lamotrigine 200 mg PO TID topiramate 200 mg PO TID warfarin [Jantoven] 15 mg PO QAM ASK your prescriber and surgeon warfarin [Jantoven] 15 mg PO QAM Take morning of surgery With a small sip of water, OTHERWISE NOTHING TO EAT OR DRINK AFTER MIDNIGHT: lamotrigine 200 mg PO TID topiramate 200 mg PO TID Take evening before surgery lamotrigine 200 mg PO TID topiramate 200 mg PO TID Other Notes If you have any questions please call us at [phone] or [phone] or [phone] or [phone]
--- NOTE | 2019-12-09 12:54 | Anesthesiology Consultation ---
Date of Service December 09, 2019 Assessment & Plan (1) Encounter for pre-operative examination: Chart Review Chart Review: Pending: Refer to Additional Notes / Consult section (PCP clearance scheduled 12/18) and Patient seen in Pre Admission Testing Awaiting PCP clearance scheduled 12/18 -Check PT/INR stat AM of surgery Per PAT appt on 12/09/19, patient resides in [place], [facility]ated [facility]. Travels to [facility] for medical appts and wears PPE. No known Covid positive contacts or Covid related symptoms. Pt scheduled for preop Covid testing 12/21/19. Educated on importance of self quarantining, social distancing and wearing mask in public both for the patient and household contacts. Seen by neurology 10/19/2019 = patient seen due to patient request for referral for epilepsy implantable device. History of stroke and residual cognitive defect. History of seizure after stroke 15 years ago and after surgical procedure in 2019. Request for epilepsy clinic referral for possible vagus nerve stimulator evaluation. Patient seen by usual neurologist 09/26/2019 = seizure disorder was stable at that time. Continue current medication but active monitoring as needed. Right Ankle Talofibular Ligament Brostrom Reconstruction 09/21/18= done under [facility] with LMA #5. Teaching & Discussion Pre-Anesthesia Teaching/Discussion Notes: Instructed NPO after midnight before surgery,except medications with 15 cc of water. Medication instructions provided according to the PAT guidelines. History Surgery Operation Date: 12/26/19 14:00 Proposed Procedures p Left Shoulder Hemiarthroplasty Resurfacing Versus - Kleber Wayne MD s Total Shoulder Arthroplasty, Biceps Tenodesis - Kleber Wayne MD Height/Weight Height: 6 ft 2 in Weight: 104.4 kg Allergies Allergy/AdvReac Type Severity Reaction Status Date / Time Penicillins Allergy Intermediate Hives Verified 12/08/19 12:38 Sulfa (Sulfonamide Allergy Intermediate Hives Verified 12/08/19 12:38 Antibiotics) amoxicillin Allergy Unknown Hives Verified 12/08/19 12:38 azithromycin Allergy Unknown Hives Verified 12/08/19 12:38 erythromycin base Allergy Unknown Hives Verified 12/08/19 12:38 Medications Home Medications Medication Instructions Recorded Confirmed Last Taken lamotrigine 200 mg PO TID 09/28/18 12/08/19 09/28/18 07:00 topiramate 200 mg PO TID 0612/08/19 09/28/18 warfarin [Jantoven] 15 mg PO QAM 09/28/18 12/08/19 09/27/18 17 MG Past Medical History Medical History (Updated 12/13/19 @ 08:47 by Kenzie Hidalgo PA-C) Anemia Stable per patient Chronic back pain HX DVT (deep venous thrombosis) LLE 1997; ON COUMADIN Factor 5 Leiden mutation, heterozygous ON COUMADIN. 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 Stroke Past Surgical History Surgical History H/O shoulder surgery LEFT H/O thumb surgery L TENDON SURG Hematoma EVACUATION FROM R THIGH= 05/27/17= LMA #5 AT [facility] History of adenoidectomy History of ankle surgery X 3 History of arthroscopy R KNEE X 2 History of tonsillectomy Past Anesthesia History No Hx of Anesthesia Complications (NO ISSUES WITH ANESTHESIA BUT DID HAVE NERVE DAMAGE WITH LAST SHOULDER SURGERY DUE TO CHIN STRAP) and No Family Hx of Anes thesia Complications History of PONV No Hx of PONV and No Hx of Motion Sickness Social History Smoking Status: Never smoker Do You Dip or Chew Tobacco: No Hx Alcohol Use: No Hx Substance Use: No substance use type: does not use Review of Systems Patient denies chest pain, shortness of breath, dyspnea on exertion, reflux, cough, wheezing, palpitations. No hx of OR, apnea/snoring. No hx of blood transfusions Physical Exam Vital Signs VITALS BP 109/69 P 68 TEMP 98.0 SP02 99% RESP 16 Constitutional no acute distress (flat affect ) ENMT Mouth: no TMJ clicking Thyromental Distance: > or= 3.5 Finger Breadths (3.5) Mallampati Class: II Missing molars Crowns to molars Neck + limited neck extension Respiratory normal respiratory effort; no respiratory distress Auscultation: lungs clear to auscultation bilaterally; no wheezes Cardiovascular Rate/Rhythm: regular rate and regular rhythm Heart Sounds: no murmur Vessels: no carotid bruit Musculoskeletal Spine: no pain with cervical ROM Neurologic moves all extremities Psychiatric Orientation: alert Testing Laboratory Results 12/09/19 13:14 12/09/19 13:14 PT 22.2 Seconds (9.0-12.0) H 12/09/19 13:14 INR 2.2 (0.9-1.1) H 12/09/19 13:14 APTT 46.7 Seconds (21.0-31.0) H* 12/09/19 13:14 Hemoglobin A1c 5.6 % (4.5-5.6) 12/09/19 13:14 Urine Color Yellow 12/09/19 13:14 Urine Appearance Clear (Clear) 12/09/19 13:14 Urine pH 5.5 (4.5-7.5) 12/09/19 13:14 Ur Specific [place] 1.013 (1.000-1.030) 12/09/19 13:14 Urine Protein Negative (Negative) 12/09/19 13:14 Urine Glucose (UA) Negative (Negative) 12/09/19 13:14 Urine Ketones Negative (Negative) 12/09/19 13:14 Urine Nitrite Negative (Negative) 12/09/19 13:14 Ur Leukocyte Esterase Trace (Negative) H 12/09/19 13:14 Urine WBC (Auto) 1-5 /hpf (0-5) 12/09/19 13:14 Urine RBC (Auto) 0-4 /hpf (0-4) 12/09/19 13:14 U Hyaline Cast (Auto) 0 /lpf (0-5) 12/09/19 13:14 U Epithel Cells (Auto) 0-5 /lpf (0-5) 12/09/19 13:14 Urine Bacteria (Auto) Negative (Negative) 12/09/19 13:14 Blood Type A Positive 12/09/19 13:14 Antibody Screen NEGATIVE 12/09/19 13:14 Electrocardiogram Date: 12/09/19 Findings: + SB @ (55) Otherwise normal EKG. Chest X-Ray Date: 12/09/19 Findings: + NAD Echocardiogram Date: 08/08/17 EF: 60-65% LV Function: normal RWMA: + none Valvular Disease: + MR (Mild) Other Testing Neck CTA 09/28/2018 = unremarkable CT of the neck. No dissection or stenosis.
--- NOTE | 2019-12-09 13:45 | XRay Report ---
XR chest Pre-admission PA/Lat CLINICAL HISTORY: Preoperative chest COMPARISON STUDY: 12/14/2017 FINDINGS: The cardiac and mediastinal contours are normal. There is no evidence of focal pulmonary co nsolidation. There is no evidence of failure. No pleural effusions are visualized.[ IMPRESSION: No active disease in the chest. ACT 112: Negative or not required by law. Electronically signed by: Norbert Duke M.D. 12/09/2019 1:44 PM
[2019-12-09 15:46] LABS: Eosinophils # (auto) 0.05 K/uL (0-0.5); Eosinophils % (auto) 1.1 %; Hemoglobin 15.1 g/dL (14.0-18.0); Lymphocytes # (auto) 1.42 K/uL (1.2-3.4); Lymphocytes % (auto) 31.3 %; Mean Corpuscular Hgb Conc 33.6 g/dL (32-36); Mean Corpuscular Volume 95.3 fL (80-100); Mean Platelet Volume 11.2 fL (7.4-10.4); Monocytes # (auto) 0.56 K/uL (0.11-0.59); Monocytes % (auto) 12.3 %; Neutrophils # (auto) 2.51 K/uL (1.4-6.5); Neutrophils % (auto) 55.3 %; Platelet Count 134 K/uL (130-400); RDW Coefficient of Variation 14.1 % (11.5-14.5); RDW Standard Deviation 49.2 fL (36.4-46.3); Red Blood Count 4.72 M/uL (4.7-6.1); White Blood Count 4.54 K/uL (4.8-10.8)
[2019-12-09 15:58] LABS: Albumin Level 3.7 gm/dl (3.4-5.0); Appearance Urine Clear (Clear); BUN Creatinine Ratio 13.3 (10-20); Bacteria Urine Automated Negative (Negative); Bilirubin Urine Negative (Negative); Blood Urine Negative (Negative); Calcium 9.2 mg/dl (8.5-10.1); Cast Urine Automated 0 /lpf (0-5); Color Urine Yellow; Creatinine Clr Calc Pharmacy 81.9 ml/min; Epithelial Cell Urine Auto 0-5 /lpf (0-5); Est GFR (African American) 68.8; Est GFR (Non-African American) 59.4; Glucose Urine UA Negative (Negative); Ketones Urine Negative (Negative); Leukocyte Esterase Urine Trace (Negative); Nitrite Urine Negative (Negative); Potassium 4.1 mmol/L (3.5-5.1); Protein Urine Negative (Negative); RBC Urine Automated 0-4 /hpf (0-4); Specific Gravity Urine 1.013 (1.000-1.030); Urobilinogen Urine Negative (Negative); pH Urine 5.5 (4.5-7.5)
[2019-12-09 16:14] LABS: INR 2.2 (0.9-1.1); Partial Thromboplastin Ratio 1.7; Prothrombin Time 22.2 Seconds (9.0-12.0)
[2019-12-09 16:23] LABS: Partial Thromboplastin Time 46.7 Seconds (21.0-31.0)
[2019-12-10 06:42] LABS: Estimated Average Glucose 114 mg/dl; Hemoglobin A1C 5.6 % (4.5-5.6)
--- NOTE | 2019-12-11 04:45 | Electrocardiogram Report ---
Test Reason : Blood Pressure : / mmHG Vent. Rate : 055 BPM Atrial Rate : 055 BPM P-R Int : 190 ms QRS Dur : 094 ms QT Int : 388 ms P-R-T Axes : 061 022 053 degrees QTc Int : 371 ms Sinus bradycardia Otherwise normal ECG When compared with ECG of 28-SEP-2018 15:16, Vent. rate has decreased BY 39 BPM QT has shortened Confirmed by Unruly Herrera ([id number]) on 12/11/2019 4:45:12 AM Referred By: Kleber Wayne Confirmed By:Unruly Herrera
--- NOTE | 2019-12-25 13:44 | History and Physical Report ---
DATE OF ADMISSION: 12/26/2019 CHIEF COMPLAINT: Chronic left shoulder pain. HISTORY OF PRESENT ILLNESS: This is a 54-year-old male patient of Dr. Wayne'rubio complaining of left shoulder for a number of years now. He reports no trauma. He has failed conservative treatment including intraarticular injections, physical therapy, arthroscopic surgery and pain medications. At this point, the patient wished to proceed with a left shoulder hemiarthroplasty resurfacing versus a total shoulder arthroplasty. PAST MEDICAL HISTORY: Factor V deficiency, history of DVT, osteoarthritis, kidney stones. PAST SURGICAL HISTORY: Right ankle x3, right knee x3, right thigh, left palm, left shoulder. FAMILY HISTORY: Noncontributory. SOCIAL HISTORY: Nonsmoker, nondrinker. REVIEW OF SYSTEMS: Chronic left shoulder pain. Otherwise, denies any shortness of breath, chest pain, nausea, vomiting or any other joint complaints. MEDICATIONS: 1. Topamax 200 mg 3 times daily. 2. Lamictal 200 mg 1 tablet 3 times daily. 3. Coumadin 17 mg daily. ALLERGIES: TYLENOL, LOVENOX, PENICILLIN AND SULFA. PHYSICAL EXAMINATION: GENERAL: Well-developed, well-nourished 54-year-old male in no acute distress. He is alert and oriented x3 and pleasant. HEENT: Normocephalic, atraumatic. Extraocular motions are intact. Pupils are equal and reactive to light. HEART: Regular rate and rhythm, no murmurs. LUNGS: Clear. ABDOMEN: Soft, nontender, bowel sounds present. EXTREMITIES: Left upper extremity active range of motion 0-90, passively to 170. He has crepitation and pain with range of motion, 4/5 strength globally. Neurologically and neurovascularly, he is intact in his left upper extremity. DIAGNOSES: Left shoulder arthritis. He has factor V deficiency, history of deep venous thrombosis, osteoarthritis, history of kidney stones. PLAN: The patient was advised of his diagnosis. Indications, risks, benefits, postop course have all been reviewed. The patient wished to proceed with a left shoulder luis alberto resurfacing versus total shoulder arthroplasty. Necessary consent forms, preoperative testing and clearances will be obtained.
[~2019-12-26 09:33] MED LIST changes: -ACET-24 PO; +DEXAMETHASONE SOD INJ 4 MG/ML VIAL ONE; +FAMOTIDINE 20 MG TAB PO SCH; +GABAPENTIN 900 MG DOSE PO SCH; +GLYCOPYRROLATE 0.2 MG/ML VIAL ONE; -LAMO200T35 PO; +LR 15ML/HR IV SCH; -LVNIS100 SQ; +METOCLOPRAMIDE HCL 10 MG TABLET PO SCH; +MIDAZOLAM HCL 1 MG/ML 2ML VIAL ONE; +NEOSTIGMINE METHYLSULFATE 5 MG/5 ML SYR ONE; +ONDANSETRON INJ 2 MG/ML 2 ML VIAL ONE; -OXYC1TAB3 PO; +PROPOFOL IV EMULSION 10 MG/ML 20 ML VIAL IV ONE; +ROCURONIUM BROMIDE 10 MG/ML 5 ML VIAL IV ONE; +ROPIVACAINE 0.5% 5 MG/ML 30 ML VIAL ONE; -TOPI200T14 PO; +VANCOMYCIN HCL 1,500 MG in SODIUM CHLORIDE 0.9% 500 ML IV SCH; -WARF10TA PO; +dexAMETHasone 4 MG TAB PO SCH; +fentaNYL citrate 100 MCG/2 ML VIAL ONE
--- NOTE | 2019-12-26 10:05 | History & Physical Bridge Note ---
Date of Service December 26, 2019 History & Physical Bridge Note I have examined the patient, reviewed the History & Physical and in the interval since the performance of the History & Physical I have noted the following changes of clinical significance: no changes noted
[2019-12-26 10:23] LABS: Partial Thromboplastin Ratio 1.4; Partial Thromboplastin Time 38.7 Seconds (21.0-31.0); Prothrombin Time 10.6 Seconds (9.0-12.0)
[2019-12-26] MEDS ORDERED: BACITRACIN INJ 50,000 UNIT VIAL ONE (10:44)
[2019-12-26] MEDS ORDERED: THROMBIN FOR SOLN 20000 UNIT KIT ONE (10:44)
[2019-12-26] MEDS ORDERED: ATROPINE SULFATE 0.1 MG/ML 10ML SYR IV PRN (10:54)
[2019-12-26] MEDS ORDERED: HYDROmorphone INJ 1 MG/ML SYRINGE IV PRN (10:54)
[2019-12-26] MEDS ORDERED: KETOROLAC 30 MG/ML VIAL IV PRN (10:54)
[2019-12-26] MEDS ORDERED: ONDANSETRON INJ 2 MG/ML 2 ML VIAL IV PRN (10:54)
[2019-12-26] MEDS ORDERED: fentaNYL citrate 100 MCG/2 ML VIAL ONE (11:26)
[2019-12-26] MEDS ORDERED: MIDAZOLAM HCL 1 MG/ML 2ML VIAL ONE ×2 (11:28)
--- NOTE | 2019-12-26 14:19 | Post Operative Brief Note ---
Immediate Post Op Note v1 Date of Surgery December 26, 2019 Pre & Post Diagnosis Operation Date: 12/26/19 12:00 Pre-Op Diagnosis: Osteoarthritis, Left Shoulder, scapular dysplasia, biceps tendinopathy Post-Op Diagnosis: Osteoarthritis, Left Shoulder, scapular dysplasia, biceps tendinopathy, glenoid labral tear, subsynovial biceps. I identified the patient and participated in the time-out.: Yes Procedure Operation Date: 12/26/19 12:00 Actual Procedures p Left Shoulder Hemiarthroplasty Resurfacing, biceps tenodesis, glenoid labral tear debridement (Left) - Kleber Wayne MD Surgeon Kleber Wayne MD Parlor Chaperone Raphael PIZARRO Estimated Blood Loss 120 Findings Consistent with Post-Op Diagnosis Specimens None Drains Hemovac Drain Anesthesia Type General Regional Complications none Disposition Accompanied Patient To Recovery: No Disposition: Recovery Room Overlapping Procedure I was present for: the critical portions of procedure. Back up surgeon: was not required during procedure.
[2019-12-26] MEDS ORDERED: LIDOCAINE HCL 2% 2 ML VIAL/AMP(20MG/ML) INFIL ONE (14:22)
[2019-12-26] MEDS ORDERED: PROPOFOL IV EMULSION 10 MG/ML 20 ML VIAL IV ONE (14:22)
--- NOTE | 2019-12-26 14:53 | Anesthesiology Progress Note ---
Date of Service December 26, 2019 Anesthesia Post Procedure Vital Signs Vital Signs: Temp Pulse Pulse Resp BP Pulse Ox 12/26/19 14:45 74 16 122/74 99 12/26/19 14:35 73 16 128/81 99 12/26/19 14:25 86 16 135/86 100 12/26/19 14:15 36.6 C 81 16 144/89 H 100 12/26/19 10:20 36.4 C L 64 20 128/80 100 Pain Intensity Left Shoulder: Pain Intensity: 10 Transfer of Care Handoff Completed per policy Notes Mental Status: alert / awake / arousable Patient Amnestic to Procedure: Yes Nausea / Vomiting: adequately controlled Pain: adequately controlled Airway Patency, RR, SpO2: stable & adequate BP & HR: stable & adequate Hydration State: stable & adequate Anesthetic Complications: no major complications apparent
--- NOTE | 2019-12-26 15:12 | XRay Report ---
LEFT SHOULDER 2 VIEWS CLINICAL HISTORY: Postoperative examination. FINDINGS: 2 portable views of the left shoulder are obtained. A left shoulder arthroplasty is in near -anatomic alignment. No acute fracture is seen. Mild productive change is noted at the acromioclavicu lar joint. Skin clips, subcutaneous gas, soft tissue swelling, and a surgical drain overlying the lef t shoulder are expected postoperative findings. The left lung is clear as imaged noting left basilar atelectasis. IMPRESSION: Expected postoperative findings status post left shoulder arthroplasty. No fracture is se en. Electronically signed by: Melvin Gan M.D. 12/26/2019 3:11 PM
[2019-12-26] MEDS ORDERED: bisacodyL 10 MG SUPP PR PRN (15:17)
[2019-12-26] MEDS ORDERED: MAGNESIUM HYDROXIDE SUSP 30 ML UDC PO PRN (15:17)
[2019-12-26] MEDS ORDERED: OXYCODONE HCL IR 5 MG TAB (IMMEDIATE RELEASE) PO PRN (15:17)
[2019-12-26] MEDS ORDERED: VANCOMYCIN CONSULT ACTIVE PRN (15:17)
[2019-12-26] MEDS ORDERED: NALOXONE HCL 0.4 MG/1 ML VIAL/CARP IV PRN (15:17)
[2019-12-26] MEDS ORDERED: HYDROmorphone INJ 0.5 MG/0.5 ML SYR IV PRN (15:17)
[2019-12-26] MEDS: SODIUM CHLORIDE 0.9% 1000ML 1,000 ML IV SCH ×2 (15:34→20:11)
--- NOTE | 2019-12-26 16:14 | Hospitalist Consultation ---
Date of Consultation December 26, 2019 Assessment & Plan (1) S/P shoulder hemiarthroplasty: - Pain management, bowel regimen - DVT ppx as below - PT/OT consulted - plans for outpt therapy [facility] - Follow am CBC to monitor for acute blood loss (2) Factor 5 Leiden mutation, heterozygous: -History of such, - Was on heparin 25,000 U BID x 3 days prior to surgery. Last dose of coumadin was 7 days ago. -Can resume Coumadin as follows: scheduled for 30 mg daily x 2 days, followed by 20 mg daily x1 day, and then follow up with coumadin clinic to determine next dose based on INR, and from there on resume to normal home regimen of 15 mg daily alternating with 12.5 mg on . -Follows with Dr. Garza at [facility] coumadin clinic. -Follow INR daily -Heparin inj scheduled to start on 12/26 for now, discussing with ortho regarding anticoagulation and if agreeable to heparin inj tonight, discussed with pharmacy as well. (3) Seizure: - Cont topamax 200 mg TID, lamictal 200 mg TID - has these levels drawn by coumadin clinic to monitor for therapeutic levels as outpt. (4) Stroke: - Hx of such in 1997, continue anticoagulation as above - Follows with neurology as an outpt (5) Obesity: - Diet and exercise to be encouraged, BMI of 30 (6) Mild cognitive impairment: - Hx of such s/p stroke in 1997. (7) DVT prophylaxis: - Anticoagulation as above, encourage ambulation CODE: FULL Thank you for involving us in the care of Mr. Mcfarland Please do not hesitate to call with questions or concerns. At this time medicine service will follow along, however this patient has a [facility] primary care physician and care will be transitioned to the [facility] hospitalist service as discussed with Dr. Justin on the evening of 12/[address] Dao. Supervising Physician Co-Signing Physician Notes PA Supervision Note: I personally saw and examined the patient. I verified all ocasio points and agree with MOIRA Escoto with the following exceptions and/or additions: Patient feeling a little bit dizzy since he woke up from surgery today. Vital signs have been stable. He denies any nausea or vomiting has been eating. Denies chest pain or shortness of breath. Pain in the shoulder is controlled. Reviewed his history and ROS as above Vitals reviewed Gen: AAOx3, NAD HEENT: Anicteric sclerae, EOMI CV: RRR no mgr nl S1S2 Pulm: CTAB no wcr Abd: +BS soft NT ND no masses or hernias Ext: Trace pitting edema legs left greater than right, left upper extremity and shoulder sling with ice pack in place Skin: No rashes, warm/dry Neuro: Moves all extremities well except left upper extremity is in sling, can wiggle fingers and left hand 54-year-old male with history of seizure disorder, CVA, DVT with protein S deficiency and factor V Leiden heterozygous mutation, on chronic Coumadin therapy, here for left shoulder hemiarthroplasty. -continue with coumadin therapy and SQ heparin bridging as per recommendations from his [facility] which the Pharmacist reviewed and retained a copy of. -follow CBC and BMP in the morning -Continue home seizure medications and watch for seizure activity History of Present Illness Attending Physician: Kleber Wayne MD History of Present Illness This is a 54 yo M with PMHx of Factor 5 Leiden, Protein S deficiency with DVT, HTN, HLD, history of CVA, mild cognitive impairment, seizure disorder, nephrolithiasis, chronic back pain who underwent elective left shoulder hemiarthroplasty resurfacing by Dr. Wayne on 12/26/2019. Medicine has been consulted for post-op medical management. Pt follows with [facility] coumadin clinic routinely. He typically takes coumadin 15 mg daily except MoTh where he takes 12.5 mg for his clotting disorders. His last dose of coumadin was 7 days ago, then was completely off anticoagulation for 3 days, and then was given heparin injections 1.25 mg/kg (25,000 U BID) for 3 days prior to the surgery. The coumadin clinic has instructed him to have 30 mg coumadin x 2 days starting tonight, followed by 20 mg x 1 day. He has follow up with clinic the day after to determine what the next day's dose will be. He is sitting up in bed, with is sitting next to him. He hasn't eaten anything yet and asks me when the pizza is coming. He still has some numbness in the left fingers but can move them all without issues. He denies any other complaints. He has plans for outpatient [place] [facility] [place] starting next week. Allergies Allergy/AdvReac Type Severity Reaction Status Date / Time Penicillins Allergy Intermediate Hives Verified 12/26/19 10:14 Sulfa (Sulfonamide Allergy Intermediate Hives Verified 12/26/19 10:14 Antibiotics) amoxicillin Allergy Unknown Hives Verified 12/26/19 10:14 azithromycin Allergy Unknown Hives Verified 12/26/19 10:14 erythromycin base Allergy Unknown Hives Verified 12/26/19 10:14 Home Medications Home Medications Medication Instructions Recorded Confirmed Type lamotrigine [Lamictal] 200 mg PO TID 09/28/18 12/26/19 History topiramate 200 mg PO TID 09/28/18 12/26/19 History warfarin [Jantoven] 15 mg PO QAM 09/28/18 12/26/19 History Patient History Medical History Anemia Stable per patient Chronic back pain HX DVT (deep venous thrombosis) LLE 1997; ON COUMADIN Factor 5 Leiden mutation, heterozygous ON COUMADIN. Kidney stones HX Obesity On anticoagulant therapy Protein S deficiency Seizure S/P CVA 1997- RESULTED IN PARTIAL COMPLEX SEIZURE DISORDER- LAST SEIZURE 2018 AFTER ANKLE SURGERY (LOVENOX POSSIBLY CAUSED LOW LAMICTAL LEVELS WHICH RESULTED IN SEIZURE- PT NOT USING LOVENOX WITH THIS SURGERY) Stroke 1997- RESIDUAL SHORT TERM MEMORY LOSS/FINE MOTOR SKILL IMPAIRMENT Transient ischemic attack (TIA) 07/2017-LAST EVENT Surgical History H/O shoulder surgery LEFT H/O thumb surgery L TENDON SURG Hematoma EVACUATION FROM R THIGH= 05/27/17= LMA #5 AT [facility] History of adenoidectomy History of ankle surgery X 3 History of arthroscopy R KNEE X 2 History of tonsillectomy Family History Sister Stroke Factor V deficiency Mother , age 65 of a stroke. 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 Feels Safe at Home: Yes Safety Concerns: Feels Safe At This Time Assistive Devices: Glasses Review of Systems Review of Systems: Constitutional: No fever, sweats or chills, + fatigue Eyes: No diplopia, no worsening or blurred vision ENT: normal hearing, no trouble swallowing Respiratory: No cough, sputum, dyspnea at rest or on exertion Cardiovascular: No chest pain, tightness or palpitations Abdomen: No pain, nausea, vomiting, diarrhea or constipation Musculoskeletal: No joint pain, calf pain, swelling Neurologic: No weakness, numbness/tingling, or balance problems Psychiatric: No anxiety or depression Skin: No rash or itch Physical Exam Physical Exam: General: awake, alert, no apparent distress Head: Normocephalic, atraumatic ENT: PERRL, EOMI, no pharyngeal exudate, mucous membranes moist Chest: Clear to auscultation, on room air, no adventitious breath sounds Cardiac: Regular rate and rhythm, no murmur, no JVD, normal peripheral pulses, good capillary refill Abdominal: NABS x 4 quadrants, soft, nondistended, nontender to palpation, no rebound or guarding Extremities: L shoulder in sling, icepack on, dressing c/d/i. Otherwise normal inspection, no peripheral edema or erythema, calfs nontender to palpation Psych: Normal mood and affect Neuro: AAO x 3, strength intact bilaterally and rated 5/5, no motor deficits, speech is clear, no peripheral sensory deficits Results & Data Results & Data ([facility]) Vital Signs (Past 12 Hours) Vital Signs Temp Pulse Pulse Resp BP Pulse Ox 12/26/19 15:52 36.6 C 82 18 123/76 97 12/26/19 15:18 36.6 C 88 16 131/70 96 12/26/19 14:55 36.4 C L 80 16 125/74 99 12/26/19 14:45 74 16 122/74 99 12/26/19 14:35 73 16 128/81 99 12/26/19 14:25 86 16 135/86 100 12/26/19 14:15 36.6 C 81 16 144/89 H 100 12/26/19 10:20 36.4 C L 64 20 128/80 100 PG Care Time/CCT Total # of Minutes Spent Total Time Spent with Patient: Total time spent is greater than 50% in coordination of care (as documented) at patient's floor/unit and/or counseling patient: Coding Level of Care Code 54244 Inpt Consult Level 3 Diagnoses S/P shoulder hemiarthroplasty Z96.619 Factor 5 Leiden mutation, heterozygous D68.51 Seizure R56.9 Stroke I63.9 Obesity E66.9 Mild cognitive impairment G31.84 DVT prophylaxis Z29.9
[2019-12-26] MEDS: TOPIRAMATE 100 MG TAB PO SCH ×3 (16:33→21:17)
[2019-12-26] MEDS: lamoTRIgine 100 MG TAB PO SCH ×3 (16:34→21:17)
[2019-12-26] MEDS: WARFARIN SOD 10 MG TAB PO SCH (17:17)
[2019-12-26] MEDS: SENNA 8.6 MG TAB PO SCH (21:16)
[2019-12-26] MEDS: DOCUSATE SODIUM 100 MG CAP PO SCH (21:17)
[2019-12-26] MEDS: ACETAMINOPHEN 500 MG TAB PO SCH (21:18)
[2019-12-26] MEDS: VANCOMYCIN HCL 1,500 MG in SODIUM CHLORIDE 0.9% 500 ML IV SCH (21:18)
--- NOTE | 2019-12-27 05:53 | Operative Report (OR) ---
DATE OF OPERATION: 12/26/2019 INDICATION FOR PROCEDURE: The patient is a 54-year-old male with chronic left shoulder pain. He has glenoid dysplasia of the scapula and progressive osteoarthritis in the glenohumeral joint. He has had previous arthroscopic surgeries on the left shoulder. 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 There is a large posterior glenoid labrum consistent with the congenital nature of this condition. 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 PROCEDURE: Left shoulder resurfacing hemiarthroplasty including biceps tenodesis and glenoid labral debridement. SURGEON: Kleber Wayne MD BLEACH CHLORINATOR: MOIRA Pearl ANESTHESIA: Regional block and general. ESTIMATED BLOOD LOSS: 120 mL. SPECIMENS: None. COMPLICATIONS: None. OPERATIVE PROCEDURE: The patient was taken to the operating room, anesthetized under general anesthetic. He was placed on the operating room table with a towel roll under the medial border of his left scapula. He was translated to left side of bed so his shoulder could be manipulated off the bed as necessary. His head was placed on a foam headrest. He had protective eyewear placed. He was placed in a beach chair type position. Then his left shoulder was examined under anesthesia. He did not have any posterior instability on exam. He had forward elevation to 120 degrees, abduction to 80 degrees, external rotation 20 degrees, internal rotation 40 degrees. He had [id number] crepitation. His left shoulder was sterilely prepped and draped with ChloraPrep. An anterior deltopectoral approach was performed. A longitudinal incision was made in the deltopectoral interval. His skin was incised sharply and subcutaneous flaps were developed. The cephalic vein was dissected out and retracted laterally with the deltoid and the pectoralis was retracted medially. The upper centimeter of the pectoralis was released for inferior exposure. Biceps tendon sheath was opened up. There was scarred chronic biceps tenosynovitis up in the bicipital groove and in the mid biceps tendon area. The biceps at the pectoralis insertion region was tenodesed to the pectoralis tendon using [id number] #2 FiberWire suture. Proximal damaged biceps tendon was resected up to the upper bicipital groove level. There was also scarred bursa tissue over the subscapularis and the supraspinatus superiorly and the rotator interval which all had a good bit of scar tissue. The deltoid was freed up off of the scarred bursa and some scarred bursa was resected to mobilize the shoulder. The circumflex vessels were identified, tied off with silk ties and divided laterally. The inferior fibers of the subscapularis were split at the level of the circumflex vessels and reflected off the capsule inferiorly with a Kitner type elevator. The blunt Hohmann retractor was placed inferiorly to protect the axillary nerve. Another blunt Hohmann retractor was placed superiorly. The rotator interval was opened up and there was synovitis and joint effusion evacuated. The coracohumeral ligament was released. The subscapularis was taken down with a transtendinous incision leaving a centimeter of tendon intact over the lesser tuberosity for repair. The tendon was divided down to the capsule, then the capsule was released off the neck of the humerus. The arm was gradually externally rotated exposing the large osteophytes on the humeral head inferiorly, posteriorly, and anteriorly and some superiorly as well. Humeral head had an oval shape with grade 4 wear more toward the anterior aspect of the head and not the posterior aspect of the humeral head. The posterior aspect of the humeral head still had good articular surface and the area anteriorly was about 2 cm x 1.5 cm oval area of exposed bone. The inferior humeral osteophytes were resected with an artist-type chisel. A Soria elevator was used to assist in releasing the capsule off the neck along with electrocautery. A Fukuda retractor was placed into the joint. There was a large posterior glenoid labrum larger than typical due to the glenoid dysplasia. There was a meniscoid-type labrum tissue. There was some grade 4 chondromalacia underlying the posterior labrum itself, but this was covered by the labrum. There was one intra-articular osteophyte that was debrided. There was a radial-type tear in the labrum with superior and inferior flaps and the central region had a blunted appearance to it as though possibly there was some debridement that had occurred previously with one of the arthroscopies. Biceps tendon was not visualized in the joint as normal and it was felt that this was subsynovial or subcapsular superiorly. The flaps of the labral tear was debrided with a scalpel. This posterior labrum anlage was all preserved for stability purposes. I did do a 360 release of the subscapularis anteriorly releasing the anterior capsule down to the glenoid with Beard scissors releasing that off of the anterior labrum tissue superiorly and then the rotator interval was carried down to that release so that we had the 360 release. Some of the anterior labrum was resected. The glenoid appearance had the appearance of scapular dysplasia with a chronic deformity of the glenoid. There were spots of exposed bone seen on the glenoid. No one large area of bone loss or bone wear was identified. There was still articular cartilage and/or fibrocartilage on the majority of the remaining dysplastic glenoid. Attention was taken back to the humerus. I used the Arthrosurface HemiCAP OVO resurfacing head replacement. The articular surface of the humerus head was fully visualized with retractors. The measuring guide was used and we chose a 52 x 48 OVO head. The guide was placed. A central pin was placed followed by the depth screw stop for the power reamer, which was then utilized and the trimmings were removed with a rongeur and all osteophytes were resected. We let the set screw a little proud so that we could reestablish some more height of the humeral head surface. We reestablished that by about 3 mm. Over the central guidepin, the appropriate drills and taps were used for the 12 mm post which was inserted with excellent fixation. Three drill holes were made for transosseous #5 FiberWire sutures placed from the bicipital groove area around the lesser tuberosity. The humeral head was irrigated. The 48 x 52 OVO Arthrosurface head was then impacted onto the Grider taper of the post with excellent fixation. This was reduced to the glenoid. Shoulder stability was assessed. There was no posterior instability. The tension on the subscapularis repair appeared to be satisfactory. The subscapularis was repaired with the #5 FiberWire sutures using Antione-Kirk suture technique as well as lateral row fixation with interrupted #2 Fiberwire [id number] sutures. The rotator interval was closed in maximal external rotation with interrupted #2 FiberWire sutures. The shoulder was stable without any tension on the repair through 120 degrees forward elevation, 80 degrees of abduction and neutral to 10 degrees external rotation. Shoulder was stable through full range of motion tested. After further irrigation, the pectoralis tendon was repaired with qritkr-in-zyhtl #2 FiberWire sutures reinforcing the biceps tenodesis passing sutures through the biceps tendon. Two drains were placed and then the deltopectoral interval was closed with interrupted [id number] #1 Vicryl sutures. The subcutaneous tissue was closed with interrupted 2-0 Vicryl and the skin was closed with sam. Sterile dressings were applied and sling immobilizer. The patient tolerated the procedure well. MOIRA Pearl, was my first assistant manager. He functioned as first assistant manager for the entire procedure. He assisted with arm positioning, soft tissue retraction, instrument management, suture management. He performed the subcutaneous and skin closure and will participate in some of the postoperative care of the patient. I attest to the content of the Intraoperative Record and any orders documented therein. Any exceptions are noted below. YOLANDA
[2019-12-27] MEDS: ACETAMINOPHEN 500 MG TAB PO SCH ×2 (06:05→13:36)
[2019-12-27 06:29] LABS: Hematocrit (blood only) 42.6 % (42-52); Hemoglobin 13.9 g/dL (14.0-18.0); Immature Granulocytes # (auto) 0.01 K/uL (0.00-0.02); Immature Granulocytes % (auto) 0.1 %; Lymphocytes # (auto) 0.96 K/uL (1.2-3.4); Lymphocytes % (auto) 13.3 %; Mean Corpuscular Hemoglobin 31.4 pg (25-34); Mean Corpuscular Hgb Conc 32.6 g/dL (32-36); Mean Corpuscular Volume 96.2 fL (80-100); Mean Platelet Volume 10.5 fL (7.4-10.4); Monocytes % (auto) 9.7 %; Neutrophils # (auto) 5.54 K/uL (1.4-6.5); Neutrophils % (auto) 76.9 %; Platelet Count 126 K/uL (130-400); RDW Coefficient of Variation 14.9 % (11.5-14.5); RDW Standard Deviation 52.4 fL (36.4-46.3); Red Blood Count 4.43 M/uL (4.7-6.1); White Blood Count 7.21 K/uL (4.8-10.8)
[2019-12-27 06:40] LABS: Prothrombin Time 10.9 Seconds (9.0-12.0)
[2019-12-27 07:00] LABS: BUN Creatinine Ratio 11.5 (10-20); Calcium 8.7 mg/dl (8.5-10.1); Creatinine Clr Calc Pharmacy 102.9 ml/min; Est GFR (Non-African American) 77.6; Potassium 4.1 mmol/L (3.5-5.1)
[2019-12-27] MEDS: ONDANSETRON INJ 2 MG/ML 2 ML VIAL IV PRN ×2 (07:44→13:45)
[2019-12-27] MEDS: lamoTRIgine 100 MG TAB PO SCH ×3 (08:44→20:36)
[2019-12-27] MEDS: DOCUSATE SODIUM 100 MG CAP PO SCH ×2 (08:44→20:37)
[2019-12-27] MEDS: MULTIVITAMIN TAB PO SCH (08:44)
[2019-12-27] MEDS: TOPIRAMATE 100 MG TAB PO SCH ×3 (08:45→20:36)
--- NOTE | 2019-12-27 08:48 | Hospitalist Progress Note ---
Date of Service December 27, 2019 Assessment & Plan (1) S/P shoulder hemiarthroplasty: S/P L shoulder hemiarthroplasty POD #[address] Wayne EBL 120ml; hemovac 225ml Pain/wound management per Ortho Activity and therapy as directed by Ortho Continue bowel regimen Continue to encourage incentive spirometry Hemoglobin 13.9 this morning (preop hemoglobin 15.1), monitor (2) Protein S deficiency: (3) Factor 5 Leiden mutation, heterozygous: Heparin 25,000 units sQ q12 to resume today 12/26 @ 2199 Continue warfarin 30mg this evening, 20mg evening of 12/27 then resume home regiment of 12.5 mg Thursday and and 50 mg all other days Patient has allergy to Lovenox secondary to seizure disorder (4) Seizure: (5) History of CVA (cerebrovascular accident): Follows Dr. Nixon in [place] as well as Dr. Wilver RUANO continue lamictal and topamax no seizure like activity since last discharge in 2018 He does have mild cognitive deficits and seizure disorder as sequela of CVA (6) DVT prophylaxis: Heparin 25,000 units sQ q12 to resume today 12/26 Continue warfarin 30mg this evening, 20mg evening of 12/27 then resume home regiment of 12.5 mg Thursday and and 50 mg all other days Patient has allergy to Lovenox secondary to seizure disorder Disposition: Per primary Follow-up: PCP Dr. Garza upon discharge Patient was seen and examined in collaboration with Dr. Stockton, please see addendum Thank you for this consultation. We will follow the patient with you during their hospital stay. You [facility] reach a [facility] via pager @ [phone]. Admission and Anticipated Discharge Date Admission Date: December 26, 2019 Supervising Physician Co-Signing Physician Notes ATTENDING NOTE : pt seen and examined , care co-ordinated with Stephanie Bishop PA-C pt reports of nasuea , abdominal pain , cramp no bowel movemement yet feels dizzy /lightheaded after getting Phenergan for nausea -will be D//jose manuel GI symptoms possibly due to Narcotic meds , constipation ordred for bowel regimen reduce dose of Oxycodon ( pt does not take pain meds at home ) prn Toradol ordered Rona Mahin MD Subjective Patient's initial consultation was done by [facility] hospitalist service on the evening of 12/26/2019. A consultation was reviewed in the [facility] team will be assuming care. This is a 54-year-old male who has significant past medical history of protein S and factor V Leiden deficiency on chronic warfarin therapy, history of seizure disorder as sequela of CVA, history of CVA in 1990s. Due to being on chronic anticoagulation therapy he did undergo heparin bridge prior to procedure. His outpatient [facility] records were reviewed and he will resume heparin this evening 12/26. Coumadin resumed last evening 12/25 at 30 mg. He is to take 30 mg x 2 days, 20 mg x 1 day and then resume home regimen. He follows with [facility] Coumadin clinic. Patient was seen and examined in room 321. at bedside. He is status post left shoulder hemiarthroplasty. He did not sleep well last evening, "only a few hours." He is complaining of left shoulder pain. He is also complaining of nausea and off-balance sensation whenever he stands. He did receive Zofran approximately 1 hour ago. feels he is much more alert and cognizant this morning. He denies any fever, chills, sweats, syncope, lightheadedness, chest pain, shortness with, cough, emesis, abdominal pain. He is urinating without difficulty. He is to begin PT today. Review of Systems Review of Systems: All systems reviewed & are unremarkable except as noted in HPI & below Physical Exam Physical Exam: Gen: WD/WN, male, sitting up in bed, NAD, A&O x3 HEENT: Normocephalic, atraumatic, conjunctivae moist, sclerae anicteric, mucous membranes moist. Lung: Clear to Auscultation bilaterally, no wheezes/rales/rhonchi Heart: Regular rate, regular rhythm, no murmurs, rubs, or gallops Abdomen: Soft, NT, ND +BS x 4 Extremities: No edema, bilateral teds, SCDs in place, left upper extremity in sling, dressing CDI, Hemovac in place Skin: Warm, no rash, negative turgor. Results & Data Results & Data ([facility]) Vital Signs (Past 12 Hours) Vital Signs Temp Pulse Resp BP Pulse Ox 12/27/19 07:36 36.5 C 64 16 110/71 95 12/27/19 03:43 37.1 C 72 20 136/79 98 12/26/19 23:14 36.5 C 79 20 114/72 99 Laboratory Results Short CBC 12/27/19 Range/Units 05:53 WBC 7.21 (4.8-10.8) K/uL Hgb 13.9 L (14.0-18.0) g/dL Hct 42.6 (42-52) % Plt Count 126 L (130-400) K/uL BMP 12/27/19 05:53 Sodium 145 Potassium 4.1 Chloride 115 H Carbon Dioxide 25 BUN 13 Creatinine 1.09 Glucose 112 H Calcium 8.7 Diagnostic Findings Shoulder Xray: IMPRESSION: Expected postoperative findings status post left shoulder arthroplasty. No fracture is seen. CXR: IMPRESSION: No active disease in the chest. Medications Administered Acetaminophen (Acetaminophen 500 Mg Tab) 1,000 mg PO Q8 BRIELLE Stop: 01/25/20 21:59 Last Admin: 12/27/19 06:05 Dose: 1,000 mg Documented by: [id number] Admin: 12/26/19 21:18 Dose: 1,000 mg Documented by: [id number] Docusate Sodium (Docusate Sodium 100 Mg Cap) 100 mg PO BID BRIELLE Stop: 01/25/20 20:59 Last Admin: 12/26/19 21:17 Dose: 100 mg Documented by: [id number] Vancomycin HCl 1,500 mg/ (Sodium Chloride) 530 mls @ 200 mls/hr IV Q12H BRIELLE Stop: 12/27/19 21:59 Last Infusion: 12/27/19 00:03 Dose: 0 mls/hr Documented by: [id number] Infusion: 12/26/19 21:29 Dose: 200 mls/hr Documented by: [id number] Admin: 12/26/19 21:18 Dose: 125 mls/hr Documented by: [id number] Lamotrigine (Lamotrigine 100 Mg Tab) 200 mg PO TID BRIELLE Stop: 01/25/20 20:59 Last Admin: 12/26/19 21:17 Dose: 200 mg Documented by: [id number] Admin: 12/26/19 16:40 Dose: 200 mg Documented by: [id number] Ondansetron HCl (Ondansetron Inj 2 Mg/Ml 2 Ml Vial) 4 mg IV Q6H PRN PRN Reason: Nausea And Vomiting Stop: 01/25/20 15:16 Last Admin: 12/27/19 07:44 Dose: 4 mg Documented by: [id number] Oxycodone HCl (Oxycodone Hcl Ir 5 Mg Tab (Immediate Release)) 5 - 10 mg PO Q4H PRN PRN Reason: Pain or Pre PT Stop: 01/09/20 15:16 Last Admin: 12/27/19 06:05 Dose: 10 mg Documented by: [id number] Sennosides (Senna 8.6 Mg Tab) 17.2 mg PO HS BRIELLE Stop: 01/25/20 20:59 Last Admin: 12/26/19 21:16 Dose: 17.2 mg Documented by: [id number] Topiramate (Topiramate 100 Mg Tab) 200 mg PO TID BRIELLE Stop: 01/25/20 20:59 Last Admin: 12/26/19 21:17 Dose: 200 mg Documented by: [id number] Admin: 12/26/19 16:40 Dose: 200 mg Documented by: [id number] Warfarin Sodium (Warfarin Sod 10 Mg Tab) 30 mg PO DAILY@1600 [facility] Stop: 12/27/19 16:01 Last Admin: 12/26/19 17:17 Dose: 30 mg Documented by: [id number] Discontinued Medications Bacitracin (Bacitracin Inj 50,000 Unit Vial) Confirm Administered Dose 50,000 units .ROUTE .STK-MED ONE Stop: 12/26/19 10:45 Last Admin: 12/26/19 14:00 Dose: 50,000 units Documented by: [id number] Dexamethasone (Dexamethasone 4 Mg Tab) 8 mg PO PREOP BRIELLE Stop: 12/26/19 18:00 Last Admin: 12/26/19 10:34 Dose: 8 mg Documented by: [id number] Famotidine (Famotidine 20 Mg Tab) 20 mg PO PREOP BRIELLE Stop: 12/26/19 14:00 Last Admin: 12/26/19 10:35 Dose: 20 mg Documented by: [id number] Gabapentin (Gabapentin 900 Mg Dose) 900 mg PO PREOP BRIELLE Stop: 12/26/19 18:00 Last Admin: 12/26/19 10:34 Dose: 900 mg Documented by: [id number] Lactated Ringer's (Lr) 1,000 mls @ 15 mls/hr IV .Q24H BRIELLE Stop: 12/27/19 05:59 Last Infusion: 12/26/19 10:57 Dose: 0 mls/hr Documented by: [id number] Admin: 12/26/19 10:18 Dose: 15 mls/hr Documented by: [id number] Vancomycin HCl 1,500 mg/ (Sodium Chloride) 530 mls @ 200 mls/hr IV PREOP BRIELLE Stop: 12/26/19 18:00 Last Infusion: 12/26/19 15:33 Dose: 0 mls/hr Documented by: [id number] Admin: 12/26/19 10:05 Dose: 200 mls/hr Documented by: [id number] Sodium Chloride (Nss 1000ml) 1,000 mls @ 100 mls/hr IV .Q10H BRIELLE Stop: 12/27/19 06:00 Last Infusion: 12/27/19 06:01 Dose: 0 mls/hr Documented by: [id number] Admin: 12/26/19 20:11 Dose: 100 mls/hr Documented by: [id number] Admin: 12/26/19 15:34 Dose: Not Given Documented by: [id number] Metoclopramide HCl (Metoclopramide Hcl 10 Mg Tablet) 10 mg PO PREOP BRIELLE Stop: 12/26/19 18:00 Last Admin: 12/26/19 10:35 Dose: 10 mg Documented by: [id number] Thrombin (Thrombin For Soln 27268 Unit Kit) Confirm Administered Dose 20,000 units .ROUTE .STK-MED ONE Stop: 12/26/19 10:45 Last Admin: 12/26/19 14:12 Dose: Not Given Documented by: [id number]
[2019-12-27] MEDS: VANCOMYCIN HCL 1,500 MG in SODIUM CHLORIDE 0.9% 500 ML IV SCH (09:33)
[2019-12-27] MEDS ORDERED: PROMETHAZINE HCL 12.5 MG in SODIUM CHLORIDE 0.9% 50 ML IV PRN (09:41)
--- NOTE | 2019-12-27 12:05 | Orthopedic Progress Note ---
Date of Service December 27, 2019 Assessment & Plan (1) S/P shoulder hemiarthroplasty: POD #1, Left shoulder hemiarthroplasty PT/ OT DVT proph- On Coumadin Taper course down to usual home dose now with heparin bridging to begin this evening, INR 1.0 this AM. D/ C planning- Home w OPPT As per medicine. Admission and Anticipated Discharge Date Admission Date: December 26, 2019 Subjective POD #1, feeling well. States nerve block is wearing off. Denies SOB, CP, N/V. Physical Exam Physical Exam: Left shoulder dressings c/d/i, no drainage. Sling in tact. Fingers mobile. N/V+ A&Ox3. Results & Data ([facility]) Vital Signs (Past 12 Hours) Vital Signs Temp Pulse Resp BP Pulse Ox 12/27/19 11:32 36.9 C 82 16 133/86 98 12/27/19 07:36 36.5 C 64 16 110/71 95 12/27/19 03:43 37.1 C 72 20 136/79 98
[2019-12-27] MEDS ORDERED: bisacodyL 5 MG TABEC PO ONE (14:53)
[2019-12-27] MEDS ORDERED: ACETAMINOPHEN 500 MG TAB PO PRN (14:55)
[2019-12-27] MEDS ORDERED: SODIUM CHLORIDE 0.9% 1000ML 1,000 ML IV SCH (15:00)
[2019-12-27] MEDS: WARFARIN SOD 10 MG TAB PO SCH (15:26)
[2019-12-27] MEDS ORDERED: KETOROLAC TROMETHAMINE 15 MG/ML VIAL IV PRN (15:41)
[2019-12-27] MEDS: POLYETHYLENE (MIRALAX) 17 GM PACK PO SCH ×2 (17:48→20:37)
[2019-12-27] MEDS: OXYCODONE HCL IR 5 MG TAB (IMMEDIATE RELEASE) PO PRN (20:36)
[2019-12-27] MEDS: HEPARIN SOD 5,000 UNIT/0.5 ML VIAL SC SCH (20:37)
[2019-12-27] MEDS: SENNA 8.6 MG TAB PO SCH (20:37)
[2019-12-28] MEDS: ONDANSETRON INJ 2 MG/ML 2 ML VIAL IV PRN (01:39)
[2019-12-28] MEDS ORDERED: CALCIUM CARBONATE 500 MG CHEWABLE TAB PO PRN (06:08)
[2019-12-28 06:36] LABS: Hematocrit (blood only) 43.4 % (42-52); Hemoglobin 14.3 g/dL (14.0-18.0); Mean Corpuscular Hemoglobin 31.5 pg (25-34); Mean Corpuscular Hgb Conc 32.9 g/dL (32-36); Mean Corpuscular Volume 95.6 fL (80-100); Mean Platelet Volume 10.5 fL (7.4-10.4); Platelet Count 116 K/uL (130-400); RDW Coefficient of Variation 15.1 % (11.5-14.5); RDW Standard Deviation 52.8 fL (36.4-46.3); Red Blood Count 4.54 M/uL (4.7-6.1); White Blood Count 6.25 K/uL (4.8-10.8)
[2019-12-28 06:47] LABS: INR 1.6 (0.9-1.1); Prothrombin Time 16.6 Seconds (9.0-12.0)
[2019-12-28 06:53] LABS: BUN Creatinine Ratio 14.3 (10-20); Calcium 8.7 mg/dl (8.5-10.1); Creatinine Clr Calc Pharmacy 106.8 ml/min; Est GFR (African American) 94.1; Est GFR (Non-African American) 81.2; Potassium 3.9 mmol/L (3.5-5.1)
[2019-12-28] MEDS: HEPARIN SOD 5,000 UNIT/0.5 ML VIAL SC SCH ×2 (07:58→20:13)
[2019-12-28] MEDS: DOCUSATE SODIUM 100 MG CAP PO SCH ×2 (07:58→20:12)
[2019-12-28] MEDS: DOCUSATE SODIUM/SENNA 50/8.6MG TAB PO SCH (07:58)
[2019-12-28] MEDS: MULTIVITAMIN TAB PO SCH (07:58)
[2019-12-28] MEDS: POLYETHYLENE (MIRALAX) 17 GM PACK PO SCH ×4 (07:59→20:12)
[2019-12-28] MEDS: TOPIRAMATE 100 MG TAB PO SCH ×3 (07:59→20:12)
[2019-12-28] MEDS: lamoTRIgine 100 MG TAB PO SCH ×3 (07:59→20:12)
--- NOTE | 2019-12-28 09:24 | Orthopedic Progress Note ---
Date of Service December 28, 2019 Assessment & Plan (1) S/P shoulder hemiarthroplasty: POD #2, Left shoulder hemiarthroplasty PT/ OT DVT proph- On Coumadin Taper course down to usual home dose now with heparin bridging to begin this evening, INR 1.6 this AM. D/ C planning- Home w OPPT As per medicine. New onset abdominal bloating and reflux. Add Protonix DC Toradol continue admission and observation and further medical management. Admission and Anticipated Discharge Date Admission Date: December 26, 2019 Subjective Complains of stomach bloating some stomach discomfort significant reflux nausea and vomiting Review of Systems Review of Systems: Despite reflux and abdominal bloating patient did have a bowel movement. Physical Exam Physical Exam: Left shoulder incision benign neurological exam normal. Has abdominal bloating mild tenderness diffuse Results & Data ([facility]) Vital Signs (Past 12 Hours) Vital Signs Temp Pulse Resp BP Pulse Ox 12/28/19 08:00 37.1 C 86 18 129/86 97 12/28/19 06:42 37.1 C 85 16 145/84 H 96 12/27/19 23:12 37.3 C 71 16 145/86 H 98
[2019-12-28] MEDS: PANTOprazole 40 MG TAB PO SCH (10:07)
[2019-12-28] MEDS ORDERED: COUGH DROP (SUGAR FREE) LOZ 24 LOZ/1 BOX BUCCAL ONE (10:52)
[2019-12-28] MEDS: OXYCODONE HCL IR 5 MG TAB (IMMEDIATE RELEASE) PO PRN ×2 (13:16→20:12)
[2019-12-28] MEDS ORDERED: WARFARIN SOD 10 MG TAB PO SCH (16:00)
--- NOTE | 2019-12-28 18:14 | Hospitalist Progress Note ---
Date of Service December 28, 2019 Assessment & Plan (1) S/P shoulder hemiarthroplasty: S/P L shoulder hemiarthroplasty POD #[address] Wayne No post op complication Continue pain control as per pain management Continue to encourage incentive spirometry Continue monitor Hgb Continue monitor (2) Protein S deficiency: (3) Factor 5 Leiden mutation, heterozygous: Continue Heparin drip Continue warfarin 30mg this evening, 20mg evening of 12/27 then resume home regiment of 12.5 mg Thursday and and 50 mg all other days Patient has allergy to Lovenox secondary to seizure disorder (4) Seizure: (5) History of CVA (cerebrovascular accident): Follows Dr. Nixon in [place] as well as Dr. Pettit [facility] continue lamictal and topamax no seizure like activity since last discharge in 2018 He does have mild cognitive deficits and seizure disorder as sequela of CVA said that Ativan does not work for the seizure, but valium is effective Will add valium IV prn for seizure while in the hospital Continue seizure precaution (6) DVT prophylaxis: Heparin 25,000 units sQ q12 to resume today 12/26 @ 2200 Continue warfarin 30mg this evening, 20mg evening of 12/27 then resume home regiment of 12.5 mg Thursday and and 50 mg all other days Patient has allergy to Lovenox secondary to seizure disorder Disposition: Per primary Follow-up: PCP Dr. Garza upon discharge Thank you for this consultation. We will follow the patient with you during their hospital stay. You can reach a member of the [facility]/10 via pager @ [phone]. Admission and Anticipated Discharge Date Admission Date: December 26, 2019 Subjective Pt was seen and examined Sitting in chair with no distress with at bedside Pt said that he feels ok He said that he has been having episodes of diarrhea Nurse said that pt was taking laxative and stool softener for constipation Denies any chest pain, palpitation, dizziness and SOB Physical Exam Physical Exam: General- No acute distress Head- atraumatic Eyes- PERRL, EOMI, ENT- oropharynx clear Neck- supple, no JVD Lungs- clear to auscultation Heart- regular rhythm; no murmur Abdomen- normal bowel sounds, soft, nontender Extremities- no calf tenderness, dressing in L shoulder Neuro- alert, oriented x 3; PERRL, EOMI; no facial palsy; no dysarthria Skin- warm & dry Results & Data Results & Data ([facility]) Vital Signs (Past 12 Hours) Vital Signs Temp Pulse Resp BP Pulse Ox 12/28/19 15:33 36.9 C 84 16 122/77 99 12/28/19 08:00 37.1 C 86 18 129/86 97 12/28/19 06:42 37.1 C 85 16 145/84 H 96
[2019-12-28] MEDS ORDERED: DIAZEPAM 5 MG/ML INJ 10ML VIAL IV PRN (18:32)
[2019-12-28] MEDS: SENNA 8.6 MG TAB PO SCH (20:12)
[2019-12-29] MEDS: OXYCODONE HCL IR 5 MG TAB (IMMEDIATE RELEASE) PO PRN ×2 (00:40→06:22)
[2019-12-29 07:07] LABS: INR 3.8 (0.9-1.1); Prothrombin Time 37.3 Seconds (9.0-12.0)
[2019-12-29] MEDS: DOCUSATE SODIUM 100 MG CAP PO SCH (08:15)
[2019-12-29] MEDS: MULTIVITAMIN TAB PO SCH (08:15)
[2019-12-29] MEDS: PANTOprazole 40 MG TAB PO SCH (08:15)
[2019-12-29] MEDS: lamoTRIgine 100 MG TAB PO SCH (08:15)
[2019-12-29] MEDS: TOPIRAMATE 100 MG TAB PO SCH (08:15)
[2019-12-29] MEDS: POLYETHYLENE (MIRALAX) 17 GM PACK PO SCH ×2 (08:21→08:32)
[2019-12-29] MEDS: DOCUSATE SODIUM/SENNA 50/8.6MG TAB PO SCH (08:21)
[2019-12-29] MEDS: HEPARIN SOD 5,000 UNIT/0.5 ML VIAL SC SCH (08:31)
--- NOTE | 2019-12-29 09:02 | Orthopedic Progress Note ---
Date of Service December 29, 2019 Assessment & Plan (1) S/P shoulder hemiarthroplasty: POD #3, Left shoulder hemiarthroplasty PT/ OT DVT proph- On Coumadin Taper course down to usual home dose now with heparin bridging. INR 3.8 this morning. Heparin bridging likely no longer needed at this time. Will discuss with patient and medicine service. D/ C planning- Home w OPPT As per medicine. Abdominal bloating and nausea has resolved. Patient feels fine this morning. He is looking forward to going home. Plan for discharge to home today. Admission and Anticipated Discharge Date Admission Date: December 26, 2019 Subjective Postop day 3. Patient sitting up in bed. Awake and alert. No complaints this morning. He is no longer having his bloating and his nausea. Pain is controlled. He states Dr. Wayne was by this morning discussing his likely discharge. No other questions or concerns. His INR is 3.8 this morning. Physical Exam Physical Exam: Dressings are clean, dry, and intact. Neurovascular is intact. Moving all fingers of the left hand. Sling in place. Results & Data ([facility]) Vital Signs (Past 12 Hours) Vital Signs Temp Pulse Resp BP Pulse Ox 12/29/19 07:35 36.9 C 70 16 125/77 98 12/28/19 23:47 36.9 C 80 16 130/83 100 Laboratory Results Laboratory Results WBC 6.25 K/uL (4.8-10.8) 12/28/19 06:14 RBC 4.54 M/uL (4.7-6.1) L 12/28/19 06:14 Hgb 14.3 g/dL (14.0-18.0) 12/28/19 06:14 Hct 43.4 % (42-52) 12/28/19 06:14 MCV 95.6 fL (80-100) 12/28/19 06:14 MCH 31.5 pg (25-34) 12/28/19 06:14 MCHC 32.9 g/dL (32-36) 12/28/19 06:14 RDW Std Deviation 52.8 fL (36.4-46.3) H 12/28/19 06:14 RDW Coeff of Glo 15.1 % (11.5-14.5) H 12/28/19 06:14 Plt Count 116 K/uL (130-400) L 12/28/19 06:14 MPV 10.5 fL (7.4-10.4) H 12/28/19 06:14 Immature Gran % (Auto) 0.1 % 12/27/19 05:53 Neut % (Auto) 76.9 % 12/27/19 05:53 Lymph % (Auto) 13.3 % 12/27/19 05:53 [place] % (Auto) 9.7 % 12/27/19 05:53 Eos % (Auto) 0.0 % 12/27/19 05:53 Baso % (Auto) 0.0 % 12/27/19 05:53 Neut # (Auto) 5.54 K/uL (1.4-6.5) 12/27/19 05:53 Lymph # (Auto) 0.96 K/uL (1.2-3.4) L 12/27/19 05:53 [place] # (Auto) 0.70 K/uL (0.11-0.59) H 12/27/19 05:53 Eos # (Auto) 0.00 K/uL (0-0.5) 12/27/19 05:53 Baso # (Auto) 0.00 K/uL (0-0.2) 12/27/19 05:53 Immature Gran # (Auto) 0.01 K/uL (0.00-0.02) 12/27/19 05:53 PT 37.3 Seconds (9.0-12.0) H 12/29/19 06:28 INR 3.8 (0.9-1.1) H 12/29/19 06:28 APTT 38.7 Seconds (21.0-31.0) H 12/26/19 10:02 PTT Ratio 1.4 12/26/19 10:02 Sodium 142 mmol/L (136-145) 12/28/19 06:14 Potassium 3.9 mmol/L (3.5-5.1) 12/28/19 06:14 Chloride 111 mmol/L (98-107) H 12/28/19 06:14 Carbon Dioxide 24 mmol/L (21-32) 12/28/19 06:14 Anion Gap 7.0 (3-11) 12/28/19 06:14 BUN 15 mg/dl (7-18) 12/28/19 06:14 Creatinine 1.05 mg/dl (0.6-1.4) 12/28/19 06:14 Est Cr Clr Drug Dosing 106.8 ml/min 12/28/19 06:14 Est GFR ( Amer) 94.1 12/28/19 06:14 Est GFR (Non-Af Amer) 81.2 12/28/19 06:14 BUN/Creatinine Ratio 14.3 (10-20) 12/28/19 06:14 Glucose 115 mg/dl (70-99) H 12/28/19 06:14 Estimat Average Glucose 114 mg/dl 12/09/19 13:14 Hemoglobin A1c 5.6 % (4.5-5.6) 12/09/19 13:14 Calcium 8.7 mg/dl (8.5-10.1) 12/28/19 06:14 Albumin 3.7 gm/dl (3.4-5.0) 12/09/19 13:14 Urine Color Yellow 12/09/19 13:14 Urine Appearance Clear (Clear) 12/09/19 13:14 Urine pH 5.5 (4.5-7.5) 12/09/19 13:14 Ur Specific [place] 1.013 (1.000-1.030) 12/09/19 13:14 Urine Protein Negative (Negative) 12/09/19 13:14 Urine Glucose (UA) Negative (Negative) 12/09/19 13:14 Urine Ketones Negative (Negative) 12/09/19 13:14 Urine Blood Negative (Negative) 12/09/19 13:14 Urine Nitrite Negative (Negative) 12/09/19 13:14 Urine Bilirubin Negative (Negative) 12/09/19 13:14 Urine Urobilinogen Negative (Negative) 12/09/19 13:14 Ur Leukocyte Esterase Trace (Negative) H 12/09/19 13:14 Urine WBC (Auto) 1-5 /hpf (0-5) 12/09/19 13:14 Urine RBC (Auto) 0-4 /hpf (0-4) 12/09/19 13:14 U Hyaline Cast (Auto) 0 /lpf (0-5) 12/09/19 13:14 U Epithel Cells (Auto) 0-5 /lpf (0-5) 12/09/19 13:14 Urine Bacteria (Auto) Negative (Negative) 12/09/19 13:14 Blood Type A Positive 12/09/19 13:14 Antibody Screen NEGATIVE 12/09/19 13:14
[2019-12-29] MEDS ORDERED: WARFARIN SOD 2.5 MG TAB PO SCH (16:00)
[2019-12-29] MEDS ORDERED: WARFARIN SOD 10 MG TAB PO SCH (16:00)
[2019-12-30] MEDS ORDERED: WARFARIN SOD 7.5 MG TAB PO SCH (16:00)
--- NOTE | 2020-01-02 13:33 | Discharge Summary (DS) ---
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 SECONDARY DIAGNOSES: Factor V Leiden mutation heterozygous on chronic Coumadin and bridging with heparin in the perioperative time, seizure disorder, history of CVA in 1997, obesity, history of DVT in the past, osteoarthritis, history of renal calculi. CONSULTS: Krysta Escoto PA-C/Jessie Dao MD/transfer to [facility] service with Lorraine Waldron PA-C and Rona Stockton M.D. COMPLICATIONS: None. PROCEDURES: Left shoulder resurfacing hemiarthroplasty including biceps tenodesis and glenoid labral debridement by Dr. Wayne on 12/27/2019. BRIEF HISTORY: As dictated in history and physical. HOSPITAL SUMMARY: The patient was admitted on the above-noted date and had the above-noted surgery performed, which he tolerated well. Postoperatively medical management was consulted through the hospitalist service. The patient was restarted on a Coumadin protocol written by his physicians and his coagulation clinic along with b.i.d. heparin. On his first postoperative day, he was feeling well. He states that his nerve block was wearing off. He had denied shortness of breath, chest pain or nausea or vomiting. His left shoulder dressing was clean, dry and intact. No drainage. Sling was intact. Fingers were mobile. Neurovascular was essentially remaining intact with wearing off of his block. Vital signs were stable and he was afebrile. He was started on PT and OT protocols and continued on his DVT prophylaxis with Coumadin taper course as well as heparin bridging. His INR was 1.0 that morning. He was continued on pain management and medical management. By his second postoperative day, he was complaining of stomach bloating and stomach discomfort with reflux, nausea and vomiting. His left shoulder incision was benign. His abdomen was bloated and had some mild diffuse tenderness. Vital signs were stable. He was afebrile. Protonix was added to his regimen and his Toradol was discontinued and medicine service continued to address the abdominal issue. By his third postoperative day, he was sitting up in bed, awake and alert. He had no complaints that morning and was no longer having the bloating and his nausea. Pain was controlled. He states that Dr. Wayne was by that morning discussing his likely discharge. No other questions or concerns. INR that morning was 3.8. His heparin was discontinued and he was to continue his normal Warfarin regimen. Dressings were clean, dry and intact. Neurovascularly intact. He was moving all fingers of the left hand. Sling was in place. Vital signs were stable. He was afebrile. He was otherwise remaining stable. His nausea had resolved and he was feeling well that morning. He was looking forward to go home and was otherwise remaining medically stable as was orthopedically stable and it was felt he could be discharged to home. For further review, please see chart. LABORATORY AND X-RAY DATA: As per chart. DISCHARGE INSTRUCTIONS: The patient was discharged to home in satisfactory condition on 12/29/2019. DIET: Regular. ACTIVITY: Nonweightbearing left upper extremity. Follow shoulder arthroplasty instructions as noted. Follow up with Dr. Wayne in 12-14 days, call for appointment if one has not been made for you. Follow up with Dr. Garza in the next 7-10 days. INR at the time of discharge was 3.8 and he will no longer need heparin bridging at this time. Continue to resume his regular warfarin dosing and check your INR regularly. DISCHARGE MEDICATIONS: Acetaminophen 1000 mg p.o. q. 8 hours, oxycodone 5 mg p.o. q. 4 hours p.r.n., pantoprazole 40 mg p.o. q.a.m. and MiraLax 17 grams p.o. daily p.r.n. Resume home meds as listed. MTDD
== END 2019-12-29 11:29 | disposition home or self-care (01) | DRG 483 ==
LOC: ASU 09:33 → 3E 14:30